=== PATIENT | male | born 1955 | race Two or more races ===

== ENCOUNTER 2024-12-13 15:34 | Inpatient (IN) | payer MEDICARE, MEDICAID, SELFPAY ==
[2024-12-13] VITALS (11 sets, daily range): BP systolic 115–166; BP diastolic 79–94; PULSE 48–72; RESP 13–96; TEMP 36.5–36.9; O2SAT 95–98; BMI 30.4
--- NOTE | 2024-12-13 15:39 | EKG_ITS ---
[facility] Test Date: 2024-12-13 Pat Name: NORMAN DONG Department: Room: - Gender: Male [employer]: : 1955 Requested By: Naomy Holt Order Number: [id number] Reading MD: Naomy Holt Measurements Intervals [place] Rate: 47 P: 9 [place]: 105 QRS: 54 QRSD: 82 T: 205 QT: 489 QTc: 436 Interpretive Statements SINUS BRADYCARDIA WITH SHORT [place] INTERVAL ST DEVIATION AND MODERATE T-WAVE ABNORMALITY, CONSIDER ANTEROLATERAL ISCHEMIA [-0.1+ mV T-WAVE IN V3-V6] ST DEVIATION AND MODERATE T-WAVE ABNORMALITY, CONSIDER INFERIOR ISCHEMIA [-0.1+ mV T-WAVE IN II/aVF] Compared to ECG 01/02/2024 04:17:27 Short [place] interval now present T-wave abnormality now present Possible ischemia now present Sinus rhythm no longer present /store/S0/[id number]/ecg/[id number].pdf
--- NOTE | 2024-12-13 15:53 | EDNOTE_ITS ---
<Statement entered by Naomy Lafleur MD - 12/13/24 17:55> As co-signing physician, I was present and available for consult prn. I concur with the plan and care as documented by the midlevel provider. ED General RME/HPI General Chief complaint: Weakness Stated complaint: HYPOTENSION Time Seen by Provider: 12/13/24 15:41 Arrival date/time: 12/13/24 15:34 CC: Generalized weakness abdominal pain numbness in his legs and back pain. Patient states ongoing for several days. He is able to speak with his doctor on the phone regarding his condition was not able to get into them and be seen personally at which time the patient can dial 911. The patient denies any chest pain or shortness of breath. Reviewed the medical records patient saw this patient has a significant mass past medical history including hypotension hyperlipidemia ST CKD stage III right-sided nephrectomy GERD chronic neck and back pain secondary to spinal stenosis status postsurgical repair, BPH, chronic constipation, diet depression anxiety, normocytic anemia. Related Data Home Medications ?Medication ?Instructions ?Recorded ?Confirmed hydrocodone 7.5 mg-acetaminophen 1 tab PO Q8H PRN Pain , Moderate 02/02/23 01/03/24 325 mg tablet topiramate 50 mg tablet 50 mg PO BID 02/02/23 gabapentin 400 mg capsule 400 mg PO TID 01/03/2401/02 Previous Rx's ?Medication ?Instructions ?Recorded apixaban 5 mg (74 tabs) tablets in 5 mg PO BID #74 tab s 01/05/24 a dose pack (Eliquis DVT-PE Treat 30D Start) Allergies Allergy/AdvReac Type Severity Reaction Status Date / Time zolpidem AdvReac Mild MAKES ME Verified 05/28/22 11:03 JOHN Review of Systems Review of Systems Narrative Review of Systems: GEN: No fever, no chills, no weight loss EYES: No discharge, no visual changes, no pain HEENT: No ear pain, no congestion, no sore throat PULM: No shortness of breath, no cough, no congestion CV: No chest pain, no dyspnea on exertion, no palpitations GI: No nausea, no vomiting, no diarrhea, no pain, no constipation : No frequency, no urgency, no dysuria MUSC/SKEL: No joint pain, no back pain SKIN: No rash PSYCH: No hallucinations, no depression HEME/LYMPH: No easy bleeding or bruising tendencies NEURO: +weakness, no headache Past Medical History Past Medical History NEUROLOGIC: Positive Neurological Disorders and Seizures (family states it happened after he had a neck stenosis surgery in 2013); Negative Peripheral Neuropathy CARDIAC: Positive Cardiac Disorders and Hypotension; Negative Hypercholesterolemia, Congestive Heart Failure, Edema, Cellulitis or Varicose Veins RESPIRATORY: Negative Chronic Obstructive Pulmonary Disease (COPD), Asthma, Tuberculosis or Sleep Apnea GASTROINTESTINAL: Positive Gall Bladder Disease and Obesity; Negative Gastrointestinal Disorders, Hepatitis, Colorectal Cancer or Gastroesophageal Reflux Disease GENITOURINARY: Positive Genitourinary Disorders, Renal Disease and Benign Prostatic Hyperplasia; Negative Kidney Stones, Dialysis or Prostate Cancer REPRODUCTIVE: Negative Testicular Cancer MUSCULOSKELETAL: Positive Musculoskeletal Disorders and Fractures; Negative Bone Cancer, Arthritis or Carpal Tunnel Syndrome ENT: Negative Cataracts or Blind ENDOCRINE: Negative Endocrine Disorders, Diabetes Mellitus Type 1 or Diabetes Mellitus Type 2 HEMATOLOGIC: Negative Blood Disorders or Sickle Cell Disease PSYCHO/SOCIAL: Positive Psychiatric Problems, Recreational Drug Use, Depression and Anxiety OTHER HISTORY: Positive Shingles, Falls, Human Immunodeficiency Virus (HIV), Chicken Pox and Mumps; Negative Hospitalization, Autoimmune Disease, Down Syndrome, Developmental Delay, Blood Transfusions, Blood Transfusion Reaction, Anesthesia Reactions, Organ Transplant, Chemotherapy, Radiation Therapy, Hyperbaric Therapy, MRSA, VRSA, Vancomycin-Resistant Enterococci, Measles, Cancer, Colorectal Cancer, Lung Cancer, Prostate Cancer or Testicular Cancer Family History FAMILY HISTORY: Positive Family Cardiac Disorders, Family Cancer and Family Surgery; Negative Family Psychiatric Problems, Family Respiratory Disorders, Family Gastrointestinal Problems or Family Anesthesia Reaction Surgical History SURGICAL: Positive Oral Surgery and Nephrectomy; Negative Cardiac Surgery, Pacemaker, Endocrine Surgery, Ear Surgery, Tympanostomy Tube, Eye Surgery, Nose Surgery, Tonsillectomy, Adenoidectomy, Cochlear Implant, Corneal Transplant, Throat Surgery, Abdominal Surgery, Tracheostomy, Gastric Bypass Surgery, Gastrostomy, Bowel Surgery, Transurethral Resection, Joint Replacement, Amputation, Open Reduction Internal Fixation, Arthroscopy, Neurologic Surgery, Brain Shunt, Vasectomy or Organ Transplant Social History SMOKING STATUS: Never smoker SECOND HAND EXPOSURE: No SUBSTANCE USE: marijuana (Once a day) 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 ED Exam Narrative Physical exam: [General: Obese not in any acute distress Head normocephalic HEENT: Within acceptable limits Neck is supple nontender Chest equal chest rise nontender to palpation Respiratory: Clear to auscultation no wheezes crackles or rubs CV: Rate rhythm is regular no murmurs rubs or clicks Abdomen is distended secondary to body habitus soft nontender no masses positive bowel sounds all 4 quadrants Back: No CVA tenderness no spinous process tenderness from cervical spine thoracic and lumbar spine Skin: Intact no petechiae rash induration ulceration or crepitus Extremities: Moving all extremity against resistance cap refill less than 2 seconds neurosensory intact, no lower extremity edema Neuro: Awake alert oriented x3 Glascow coma 15 no focal deficits] Course Course Course Narrative: Review of the records show that the patient has worsening CKD with a BUN of 43 now and a creatinine of 2.7. Patient is also noted to be bradycardic. At this time given the patient's significant past medical history I believe he needs to be admitted for further medical management to try and recover his single kidney. Patient's case discussed with Dr. Ewing who agrees to accept the patient for admission Quality Measures none Orders Category Date Time Status EKG (ED ONLY) *Do not use* NOW Care 12/13/24 15:39 Completed EKG (ED Only) Stat Exams 12/13/24 15:39 Draft B-Type Natriuretic Peptide Stat Lab 12/13/24 16:51 Received CBC Stat Lab 12/13/24 16:51 Received CMP [Comprehensive Metabolic Panel] Stat Lab 12/13/24 15:35 Completed Drug Screen,Urine Stat Lab 12/13/24 15:51 Ordered LDH (Lactate Dehydrogenase) Stat Lab 12/13/24 15:35 Completed Magnesium Stat Lab 12/13/24 15:35 Completed Partial Thromboplastin Time Stat Lab 12/13/24 15:35 Completed Prothrombin Time with INR Stat Lab 12/13/24 15:35 Completed Troponin I Stat Lab 12/13/24 15:35 Completed Urinalysis Stat Lab 12/13/24 15:51 Ordered Vital Signs Vital signs: Vital Signs Temperature 97.7 F 12/13/24 15:36 Pulse Rate 52 L 12/13/24 15:36 Respiratory Rate 14 12/13/24 15:36 Blood Pressure 130/79 12/13/24 15:36 Pulse Oximetry (%) 96 12/13/24 15:36 Oxygen Delivery Method Room Air 12/13/24 15:36 [facility] Patient data External records reviewed:: [facility] previous records and EMS form Clinical information provided by:: patient and EMS Social determinants that could affect healthcare access:: none Patient has the following chronic illnesses:: Hypotension hyperlipidemia CKD stage III right sided nephrectomy GERD chronic neck back pain spinal stenosis status post neurosurgical repair, BPH, chronic constipation, depression anxiety, normocytic anemia. How is presenting disease/condition affected by chronic disease/condition?: e xacerbated by Evaluation data The following diagnostics were reviewed and interpreted by me:: lab results, radiology exam(s) and EKG tracing(s) Lab and/or radiology exams considered but not ordered:: EKG performed at 1543 shows a ventricular rate of 4 6 MN interval 100 QRS of 80 QTc of 472 sinus bradycardia with T wave abnormalities. Unchanged to old EKG. Coags: Shows a PT of 12.4 INR 1.1 PTT of 21.9 CMP shows chloride of 108 BUN of 43 creatinine of 2.7 no other electrolyte imbalances no transaminitis or T. bili elevation Troponin at 0.075 when compared to the last 2 troponin since the patient had a full cardiac arrest all troponins have been elevated. Interpretation Summary: Worsening CKD, along with bradycardias resulting in requirement for admission Medications Medications considered but not ordered:: None Medication administrations:: None Consultations Consultation(s) initiated? (list below): No Diagnosis Differential Diagnosis ED Complaint MDM: Worsening CKD, ACS MT Most likely diagnosis given after review of the tests above:: Worsening CKD, bradycardia Admission Indicated Admission indicated?: indicated Explain why admission is indicated or not indicated:: Further medical management Admission Request Was there a request for admission?: No Disposition Plan Disposition Plan: Admit Medical Decision Making Differential Diagnosis Differential Diagnosis: Worsening CKD, ACS MT Lab Data 12/13/24 16:51 12/13/24 15:35 Labs: Lab Results 12/13/24 Range/Units 15:35 WBC Cancelled RBC Cancelled Hgb Cancelled Hct Cancelled MCV Cancelled MCH Cancelled MCHC Cancelled RDW Std Deviation Cancelled Plt Count Cancelled Neut % (Auto) Cancelled Lymph % (Auto) Cancelled [place] % (Auto) Cancelled Eos % (Auto) Cancelled Baso % (Auto) Cancelled Neut # (Auto) Cancelled Lymph # (Auto) Cancelled [place] # (Auto) Cancelled Eos # (Auto) Cancelled Baso # (Auto) Cancelled Immature Gran # (Auto) Cancelled Absolute Nucleated RBC Cancelled Immature Gran % Cancelled Nucleated RBC % Cancelled PT 12.4 H (9.0-12.2) Seconds INR 1.1 (0.9-1.3) APTT 21.9 L (22.0-36.0) Seconds Sodium 141 (136-145) mMol/L Potassium 4.2 (3.4-5.1) mMol/L Chloride 108 H (98-107) mMol/L Carbon Dioxide 24.6 (20.0-31.0) mMol/L Anion Gap 8 (7-16) BUN 43 H (9-23) mg/dL Creatinine 2.7 H (0.6-1.3) mg/dL Estim Creat Clear Calc 28.2 L (>60) mL/min eGFR 25 L (60 - ) See Note BUN/Creatinine Ratio 16 (12-20) Ratio Glucose 105 (74-106) mg/dL Calculated Osmolality 292 (275-295) Calcium 9.4 (8.3-10.6) mg/dL Corrected Calcium 9.6 (8.5-10.1) mg/dL Magnesium 1.8 (1.6-2.6) mg/dL Total Bilirubin 0.7 (0.3-1.2) mg/dL AST 21 (0-34) U/L ALT 13 (10-49) U/L Alkaline Phosphatase 83 (46-116) U/L Lactate Dehydrogenase 173 (120-246) U/L Troponin I 0.075 H* (0.0-0.045) ng/mL Total Protein 6.3 (5.7-8.2) gm/dL Albumin 3.8 (3.4-4.8) gm/dL Globulin 2.5 (2.3-3.5) gm/dL Albumin/Globulin Ratio 1.5 (1.2-2.2) Misc Test Result Cancelled Discharge Plan Plan Patient Disposition: Other Care w/in Hosp ([facility]) Patient condition on transfer: Stable Prescriptions/Referrals Prescriptions/Med Rec: No Action gabapentin 400 mg Capsule 400 mg PO TID Eliquis DVT-PE Treat 30D Start 5 mg (74 tabs) tablets,dose pack 5 mg PO BID Qty: 74 0RF Rx Instructions: Take 10mg twice daily for 5 more days, and then 4mg twice daily after that. hydrocodone-acetaminophen 7.5-325 mg Tablet 1 tab PO Q8H PRN (Reason: Pain, Moderate) topiramate 50 mg Tablet 50 mg PO BID Referrals: Yury Russell MD [Primary Care Provider] - In 1 week Problem List Clinical Impression: CKD (chronic kidney disease), Bradycardia Patient/Caregiver Discharge Instructions Print Language: [place] Citizen Stand Alone Forms: Lisbeth Award Info., Patient Portal Info Letter PA/NUTRITION SERVICES WORKER Supervising Physician PA/NUTRITION SERVICES WORKER Supervising Physician: Omar Yu ENP
[2024-12-13 16:40] LABS: Alanine Aminotransferase 13 U/L (10-49); Albumin, Serum 3.8 gm/dL (3.4-4.8); Albumin/Globulin Ratio 1.5 (1.2-2.2); Alkaline Phosphatase 83 U/L (46-116); Anion Gap 8 (7-16); Aspartate Amino Transferase 21 U/L (0-34); BUN/Creatinine Ratio 16 Ratio (12-20); Bilirubin,Total 0.7 mg/dL (0.3-1.2); Blood Urea Nitrogen 43 mg/dL (9-23); Calcium 9.4 mg/dL (8.3-10.6); Calcium (Corrected) 9.6 mg/dL (8.5-10.1); Carbon Dioxide 24.6 mMol/L (20.0-31.0); Chloride 108 mMol/L (98-107); Creatinine (Component) 2.7 mg/dL (0.6-1.3); Estimated Creatinine Clearance 28.2 mL/min (>60); Globulin 2.5 gm/dL (2.3-3.5); Glucose 105 mg/dL (74-106); LDH (Lactate Dehydrogenase) 173 U/L (120-246); Magnesium 1.8 mg/dL (1.6-2.6); Osmolality,Calculated 292 (275-295); Potassium 4.2 mMol/L (3.4-5.1); Sodium 141 mMol/L (136-145); Total Protein 6.3 gm/dL (5.7-8.2); eGFR 25 See Note
[2024-12-13 16:42] LABS: Troponin I 0.075 ng/mL (0.0-0.045)
[2024-12-13 16:43] LABS: INR 1.1 (0.9-1.3); Partial Thromboplastin Time 21.9 Seconds (22.0-36.0); Prothrombin Time 12.4 Seconds (9.0-12.2)
[2024-12-13 17:10] LABS: Basophils % (Auto) 0 % (0-2.5); Eosinophils # (Auto) 0.5 Thou/mm3 (0.0-0.5); Eosinophils % (Auto) 7 % (0-10); Hematocrit 37.8 % (41.0-53.0); Hemoglobin 12.4 g/dL (13.5-16.0); Immature Granulocytes % (Auto) 0 % (0-0); Immature Granulocytes Auto 0.02 Thou/mm3 (0.00-0.00); Lymphocytes # (Auto) 1.6 Thou/mm3 (1.0-4.8); Lymphocytes % (Auto) 22 % (10-50); Mean Corpuscular HGB Conc 32.8 g/dl (31.0-37.0); Mean Corpuscular Hemoglobin 28.9 pg (25.0-35.0); Mean Corpuscular Volume 88 fL (80-100); Monocytes # (Auto) 0.6 Thou/mm3 (0.0-0.8); Monocytes % (Auto) 9 % (0-12); Neutrophils # (Auto) 4.3 Thou/mm3 (1.8-7.7); Neutrophils % (Auto) 61 % (37-80); Nucleated Red Blood Cell % 0 /100 WBC (0); Platelet Count 144 Thou/mm3 (140-440); RDW Standard Deviation 42.1 fL (35.1-43.9); Red Blood Count 4.29 Miln/mm3 (4.50-5.90); White Blood Count 7.1 Thou/mm3 (3.8-10.6)
[2024-12-13 17:22] LABS: B-Type Natriuretic Peptide 331 pg/mL (0-100)
[2024-12-13] MEDS: SODIUM CHLORIDE 0.9% 1000 ML 1,000 ML 999 ML IV (17:24)
--- NOTE | 2024-12-13 17:41 | PC.NURSE ---
providers requested bladder scan.
--- NOTE | 2024-12-13 17:53 | PC.NURSE ---
per hospitalist request to bladder scan patient. measured volume of 266ml. notifed Omar OYSTER CULLER. order for rangel cath obtained
--- NOTE | 2024-12-13 18:00 | XR_ITS ---
Examination: Retroperitoneal ultrasound, complete Technique: Multiple high resolution grayscale images of the retroperitoneum obtained, including kidneys and bladder. Exam date and time:December 13, 20240 hours INDICATIONS: Acute renal insufficiency on laboratory examination today, status post right nephrectomy 4 years ago FINDINGS: Absent right kidney Left kidney 9.9 cm renal cortex 1.3 cm Moderate renal parenchymal scar formation, no hydronephrosis Urinary bladder contracted around a Talley catheter IMPRESSION: Moderate left renal parenchymal scar formation
--- NOTE | 2024-12-13 18:10 | PD.RESHP ---
Documentation for date of: 12/13/24 HPI History of Present Illness History of present illness: Patient is a 69-year-old male with past medical history of hypotension (previously on midodrine), cardiopulmonary arrest 12/2023, hyperlipidemia, CKD stage III, right-sided nephrectomy, GERD, chronic neck/back pain secondary to spinal stenosis s/p surgical repair 2011, BPH, chronic constipation, depression/anxiety, and normocytic anemia who presented to the ED on 12/13/2024 with a chief complaint of generalized weakness starting about 3 days ago. Patient reports associated groin and lower abdominal ache. He is a somewhat poor historian. He states that at baseline he is wheelchair bound since spine surgery but self-transfers over the last few days have felt more difficult due to full body weakness. Patient states that he has been urinating as usual. He uses briefs and denies use of any straight catheter. He denies any dysuria, hematuria, fevers, chills, sweats, nausea, vomiting, or diarrhea. Patient states his intake has been poor the last few days. He endorses constipation and last bowel movement was 3 days ago. Patient otherwise states that he follows with his PCP, Dr. Russell and was last seen a couple weeks ago. Patient denies having a alteration tailor apprentice. Patient states he had a right nephrectomy because it was no longer good, records show it was done due to pyelonephrosis and nonfunction. Patient states he has not seen a Urologist in the past, however records indicate he has seen Dr. Ferreira. ED Course: -Initial vitals were BP 130/79, HR 52, RR 14, Temp 97.7, O2 96% on room air -Labs significant for BUN 43, creatinine 2.7 (baseline 1.7-1.8), GFR 25 (baseline 40s), troponin 0.075, BNP 331 -EKG showed sinus bradycardia with rate of [address] changes from prior EKGs -In the ED, patient was given 1L NS IV fluid bolus. -Patient was admitted for REN on CKD. Review of Systems Review of systems otherwise negative except what is mentioned above. Past Medical History Past Medical History NEUROLOGIC: Positive Peripheral Neuropathy CARDIAC: Positive Hypercholesterolemia and Hypotension GASTROINTESTINAL: Positive Gall Bladder Disease, Gastroesophageal Reflux Disease and Obesity GENITOURINARY: Positive Genitourinary Disorders, Chronic Kidney Disease (CKD III), Renal Disease, Kidney Stones and Benign Prostatic Hyperplasia MUSCULOSKELETAL: Positive Musculoskeletal Disorders, Arthritis and Fractures PSYCHO/SOCIAL: Positive Recreational Drug Use, Depression and Anxiety OTHER HISTORY: Positive Shingles, Falls, Human Immunodeficiency Virus (HIV), Chicken Pox and Mumps Family History FAMILY HISTORY: Positive Family Cardiac Disorders (Heart failure in mother), Family Endocrine Disorders (Diabetes in Father), Family Reproductive Disorders (Prostate cancer in father) and Family Cancer Surgical History SURGICAL: Positive Oral Surgery (Teeth Removed), Nephrectomy (Right Kidney) and of Back Surgery (Neck surgery) Social History SUBSTANCE USE: marijuana (Once a day) ALCOHOL: Current (couple of beers daily) HOUSING: House LIVES WITH: Family ( and son) 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 Conversational often rambling, and non-toxic appearing. Patient smells very strongly of urine. HEENT: Normocephalic, atraumatic, mucous membranes moist. Heart: Regular rate and rhythm, no murmurs. Lungs: Clear to auscultation with no wheezing or crackles. Abdomen: Obese and distended but soft, nontender, positive bowel sounds. No edema. No guarding or rebound tenderness. Neurologic: Alert and oriented x3, no gross neurological deficit, and patient able to move all 4 extremities. Extremities: No edema. Skin: No rash or ecchymoses. Results: Labs 12/14/24 05:50 12/14/24 05:50 Labs: Short CBC 12/13/24 12/13/24 Range/Units 15:35 16:51 WBC Cancelled 7.1 Hgb Cancelled 12.4 L Hct Cancelled 37.8 L Plt Count Cancelled 144 BMP 12/13/24 15:35 Sodium 141 Potassium 4.2 Chloride 108 H Carbon Dioxide 24.6 BUN 43 H Creatinine 2.7 H Glucose 105 Calcium 9.4 Cardiac Enzymes 12/13/24 Range/Units 15:35 Troponin I 0.075 H* (0.0-0.045) ng/mL Liver Function 12/13/24 Range/Units 15:35 Total Bilirubin 0.7 (0.3-1.2) mg/dL AST 21 (0-34) U/L ALT 13 (10-49) U/L Alkaline Phosphatase 83 (46-116) U/L Albumin 3.8 (3.4-4.8) gm/dL Quality Measures Quality Measures none Advance care planning discussed with:: patient Medications Home Medications and Allergies Home Medications ?Medication ?Instructions ?Recorded ?Confirmed ?Type hydrocodone 7.5 mg-acetaminophen 1 tab PO Q8H PRN Pain, Moderate 02/02/23 12/14/24 History 325 mg tablet topiramate 50 mg tablet 50 mg PO BID 02/02/23 12/14/24 History gabapentin 400 mg capsule 400 mg PO TID 01/03/24 12/14/24 History amitriptyline 10 mg tablet 10 mg PO .qdayhs 12/14/24 12/14/24 History atorvastatin 40 mg tablet 40 mg PO QDAY 12/14/24 12/14/24 History buprenorphine 4 mg-naloxone 1 mg 1 film buccal BID 12/14/24 12/14/24 History sublingual film folic acid 1 mg tablet 1 mg PO QDAY 12/14/24 12/14/24 History lidocaine 5 % topical patch patch topical Q24H 12/14/24 History midodrine 10 mg tablet 10 mg PO TID 12/14/24 12/14/24 History thiamine HCl (vitamin B1) 100 mg 100 mg PO QDAY 12/14/24 12/14/24 History tablet Allergies Allergy/AdvReac Type Severity Reaction Status Date / Time zolpidem AdvReac Mild MAKES ME Verified 05/28/22 11:03 CRAZY Visit Medications Acetaminophen (Acetaminophen 325 Mg Tablet) 650 mg PO Q6H PRN PRN Reason: Fever >100.4 or Pain 1-3 Stop: 01/12/25 17:51 Amitriptyline HCl (Amitriptyline Hcl 25 Mg Tablet) 10 mg PO HS VIJAY Stop: 01/12/25 20:59 Atorvastatin Calcium (Atorvastatin Calcium 20 Mg Tablet) 40 mg PO HS VIJAY Stop: 01/12/25 20:59 Heparin Sodium (Porcine) (Heparin Sod Inj 5000 Unit/Ml Vial) 5,000 unit SC Q12HR VIJAY Stop: 12/27/24 20:59 Sodium Chloride (Ns) 1,000 mls @ 75 mls/hr IV .[id number] VIJAY Stop: 12/14/24 20:39 Magnesium Hydroxide (Milk Of Magnesia Susp 30 Ml Udc) 30 ml PO QDAY PRN; Protocol PRN Reason: CONSTIPATION Stop: 01/12/25 17:51 Ondansetron HCl (Ondansetron Inj 2 Mg/Ml Inj 2 Ml) 4 mg IV Q6H PRN; Protocol PRN Reason: NAUSEA OR VOMITING Stop: 01/12/25 17:51 Sennosides (Senna Tablet) 1 tab PO QDAY VIJAY; Protocol Stop: 01/12/25 17:59 Tramadol HCl (Tramadol Hcl 50 Mg Tablet) 50 mg PO Q6HR PRN PRN Reason: PAIN SCALE 4-10(Mod-Sev Stop: 12/18/24 18:03 Discontinued Medications Sodium Chloride (Ns) 1,000 mls @ 999 mls/hr IV .Q1H1M ONE Stop: 12/13/24 18:06 Last Admin: 12/13/24 17:24 Dose: 999 mls/hr Assessment & Plan Plan Patient is a 69-year-old male with past medical history of hypotension (previously on midodrine), cardiopulmonary arrest 12/2023, hyperlipidemia, CKD stage III, right-sided nephrectomy, GERD, chronic neck/back pain secondary to spinal stenosis s/p surgical repair 2011, BPH, chronic constipation, depression/anxiety, and normocytic anemia who presented to the ED on 12/13/2024 for 3 days of generalized weakness. He was found to have REN on CKD and admitted for further management. #REN on CKD stage 3 #Prerenal due to dehydration versus postrenal obstructive uropathy #Suspected UTI #History of right nephrectomy 2019 #History of BPH #History of possible neurogenic bladder secondary to spinal stenosis s/p surgery 2011 Patient presented with generalized weakness, complaining of abdominal/groin ache. On examination patient does not have any focal tenderness but smells strongly of urine. Creatinine is elevated at 2.7 above baseline 1.7-1.8 from 2023. May be either prerenal, secondary to poor intake, or postrenal secondary to obstructive uropathy, patient had listed history of BPH but denying, he appears to be a poor historian however. Also likely has neurogenic bladder secondary to spinal disease. He has history of R nephrectomy in 2019 for pyelonephrosis and nonfunction, used to follow with Dr. Ferreira in [id number]. Currently denies having a alteration tailor apprentice. Will administer IV fluids, place Talley, measure I&Os, consult nephrology. Patient received 1L in ED on admission. -Talley placed -Strict I&Os -IV hydration, NS at 75 ml/hr to start for 2L -Avoid nephrotoxins -Monitor renal panel -Renally dosed medications -UA ordered -Utox pending -Renal US ordered -Urine electrolytes ordered -On-call Nephrology consulted, appreciate recommendations -Suspect UTI, will start ceftriaxone if UA positive #Chronic neck/back pain #History of lumbar spinal stenosis s/p fusion 2011 Had surgery at [place] in 2011, patient states has been wheelchair bound since. He has a pain specialist of which he does not remember the name. He is on buprenorphine-naloxone. Old lumbar MRI on record from 2020 shows lumbar fusion L5-S1 with anatomic alignment, L4-L5 moderate overall spinal stenosis, L3-L4 moderate to severe overall spinal stenosis, including 8 mm central lumbar disc bulge. Old cervical spine CT on record from 2021 shows cervical fusion C5-C7. -Continue home buprenorphine-naloxone 4-1 mg BID, patient's to bring from home -Tramadol 50 mg q6h as needed in the mean time for moderate to severe pain #Chronic constipation Patient on admission states he has not had bowel movement in 3 days. -Senna 1 tab qday -Milk of magnesia 30 ml qday as needed #History of hyperlipidemia -Continue home atorvastatin 40 mg HS #History of depression/anxiety -Continue home amitriptyline 10 mg qday DVT prophylaxis: Heparin 5,000 U subQ GI prophylaxis: Not indicated Diet: Renal Talley: Placed [12/13- ] Lines: Peripheral IV Antibiotics: Ceftriaxone [12/14- ] CODE STATUS: FULL Reason for hospitalization: REN on CKD Patient plan of care was discussed with the attending physician, Dr. Stone. Edith Ewing, PGY-2 Attending Provider Attestation/Addendum I have examined the patient, reviewed labs and imaging findings, discussed the case with the resident(s), and reviewed entered orders. I agree with the plan of care as outlined in this note, with these additional summaries/recommendations: 69-year-old male with history of nephrectomy and chronic back pain secondary to spinal stenosis now wheelchair-bound presented to the ED with chief complaint of worsening weakness, increased frequency of urination. After discussion with , suspect that the issue may be related to UTI. UA returned positive for white blood cells, will initiate on Rocephin and fluid resuscitation for likely prerenal REN. Monitor renal function closely. Alejandro Stone MD
[2024-12-13] MEDS: SODIUM CHLORIDE 0.9% 1000 ML 1,000 ML 75 ML IV (18:25)
[2024-12-13] MEDS: SENNA TABLET 1 TAB PO (18:26)
[2024-12-13 18:47] LABS: Creatine Kinase 81 U/L (34-171)
[2024-12-13 18:54] LABS: Collection Type, Urine Clean Catch
--- NOTE | 2024-12-13 18:59 | PC.NURSE ---
rangel cath inserted, tolerated well. 210ml measured output
[2024-12-13 19:26] LABS: Chloride,Urine Random 67.5 mMol/L (55.0-125.0); Potassium,Urine Random 34 mMol/L (12-62); Sodium,Urine Random 73.4 mMol/L (20.0-110.0)
[2024-12-13] MEDS: traMADol HCL 50 MG TABLET PO (19:28)
[2024-12-13 19:29] LABS: Bacteria,Urine 4+; Bilirubin,Urine Negative (Negative); Blood,Urine Trace (Negative); Clarity,Urine Turbid (Clear/Hazy); Color,Urine Yellow (Lt Yel-Yel); Glucose, Urine Negative (Negative); Ketones,Urine Negative (Negative); Leukocyte Esterase,Urine Positive (Negative); Nitrite,Urine Positive (Negative); Protein,Urine 1+ (Neg - Trace); RBC,Urine 9 /hpf (0-3); Specific Gravity,Urine 1.016 (1.001-1.035); Squamous Epithelial Cell,Urine 1 /hpf (0-5); Urobilinogen,Urine Negative mg/dL (0.0-1.0); WBC,Urine 156 /hpf (0-5)
[2024-12-13] MEDS: HEPARIN SOD INJ 5000 UNIT/ML VIAL SC (20:45)
[2024-12-13] MEDS: ATORVASTATIN CALCIUM 20 MG TABLET 40 MG PO (20:45)
--- NOTE | 2024-12-13 21:06 | PC.NURSE ---
unable to give patients scheduled home meds spoke to via telephone states shes unable to bring them in tonight but will bring them tomorrow morning
[2024-12-13 22:07] LABS: Amphetamine/Methamp Scrn,U Negative (Negative); Barbiturate Screen,Urine Negative (Negative); Benzodiazepines Screen,Urine Negative (Negative); Benzoylecgonine Screen, Ur Negative (Negative); Fentanyl Screen,Urine Negative (Negative); Opiate Screen,Urine Negative (Negative); THC Screen,Urine Positive (Negative)
[2024-12-14] VITALS (10 sets, daily range): BP systolic 118–178; BP diastolic 78–108; PULSE 56–84; RESP 12–98; TEMP 36.1–36.5; O2SAT 97–98; BMI 29.2
[2024-12-14] MEDS: cefTRIAXone/D5w 1gm IV premix 1 G/50 ML BAG IV (00:30)
[2024-12-14 06:29] LABS: Basophils % (Auto) 0 % (0-2.5); Eosinophils # (Auto) 0.4 Thou/mm3 (0.0-0.5); Eosinophils % (Auto) 7 % (0-10); Hematocrit 36.6 % (41.0-53.0); Hemoglobin 12.2 g/dL (13.5-16.0); Immature Granulocytes % (Auto) 0 % (0-0); Immature Granulocytes Auto 0.01 Thou/mm3 (0.00-0.00); Lymphocytes # (Auto) 1.3 Thou/mm3 (1.0-4.8); Lymphocytes % (Auto) 21 % (10-50); Mean Corpuscular HGB Conc 33.3 g/dl (31.0-37.0); Mean Corpuscular Hemoglobin 29.5 pg (25.0-35.0); Mean Corpuscular Volume 88 fL (80-100); Monocytes # (Auto) 0.6 Thou/mm3 (0.0-0.8); Monocytes % (Auto) 10 % (0-12); Neutrophils # (Auto) 3.6 Thou/mm3 (1.8-7.7); Neutrophils % (Auto) 61 % (37-80); Nucleated Red Blood Cell % 0 /100 WBC (0); Platelet Count 122 Thou/mm3 (140-440); RDW Standard Deviation 41.1 fL (35.1-43.9); Red Blood Count 4.14 Miln/mm3 (4.50-5.90); White Blood Count 5.8 Thou/mm3 (3.8-10.6)
[2024-12-14 06:43] LABS: Albumin, Serum 3.7 gm/dL (3.4-4.8); Anion Gap 7 (7-16); BUN/Creatinine Ratio 17 Ratio (12-20); Blood Urea Nitrogen 38 mg/dL (9-23); Calcium (Corrected) 9.2 mg/dL (8.5-10.1); Carbon Dioxide 24.7 mMol/L (20.0-31.0); Chloride 108 mMol/L (98-107); Creatinine (Component) 2.2 mg/dL (0.6-1.3); Glucose 89 mg/dL (74-106); Magnesium 1.8 mg/dL (1.6-2.6); Osmolality,Calculated 287 (275-295); Phosphorous 3.3 mg/dL (2.4-5.1); Potassium 4.3 mMol/L (3.4-5.1); Sodium 140 mMol/L (136-145); eGFR 32 See Note
[2024-12-14] MEDS: SODIUM CHLORIDE 0.9% 1000 ML 1,000 ML 75 ML IV (08:44)
[2024-12-14] MEDS: HEPARIN SOD INJ 5000 UNIT/ML VIAL SC ×2 (08:44→21:15)
[2024-12-14] MEDS: SENNA TABLET 1 TAB PO (08:45)
--- NOTE | 2024-12-14 10:26 | EKG_ITS ---
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: STACEY : 1955 Requested By: Maritza Rock Order Number: [id number] Reading MD: Maritza Rock Measurements Intervals [place] Rate: 60 P: 28 NJ: 136 QRS: 42 QRSD: 80 T: 206 QT: 447 QTc: 450 Interpretive Statements SINUS RHYTHM ST DEVIATION AND MODERATE T-WAVE ABNORMALITY, CONSIDER ANTEROLATERAL ISCHEMIA ST DEVIATION AND MODERATE T-WAVE ABNORMALITY, CONSIDER INFERIOR ISCHEMIA Compared to ECG 12/13/2024 15:43:29 Sinus bradycardia no longer present Short [place] interval no longer present T-wave abnormality still present Possible ischemia still present /store/S0/[id number]/ecg/[id number].pdf
--- NOTE | 2024-12-14 11:14 | ESPR_ITS ---
<Statement entered by Tosin Ford MD - 12/22/24 09:19> I reviewed above note and agree with findings and plans. I have also personally examined the patient with medicine team and went over assessment and plan with medical team including international relations teacher and resident physician. Documentation for date of: 12/14/24 Subjective Subjective Interval history: Patient seen and examined at bedside. Patient's labs and vitals reviewed. Patient was started on IV NS yesterday renal function is improved. Creatinine 2.2, BUN 38, GFR 33 today. Renal ultrasound showed moderate left parenchymal scar formation, Patient complains of intermittent substernal chest pain/pressure radiating to neck at times, reports pain to be currently 4/10. Patient's initial troponin on presentation was negative, peaked at 0.254 and then down trended. EKG showed no acute ST?T changes as compared to previous EKGs. EKG does show T wave inversions in lead V3 to V6 and some inversion in inferior leads. Patient will need outpatient cardiology workup considering NSTEMI type II. Otherwise we will continue to monitor renal function Exam Vital Signs Temp Pulse Resp BP Pulse Ox O2 Del Method 97.5 F 63 16 167/95 H 98 Room Air 12/14/24 08:00 12/14/24 08:00 12/14/24 08:00 12/14/24 08:00 12/14/24 08:00 12/14/24 08:00 Narrative Exam Physical Exam General: Awake and in no acute distress. Conversational often rambling, and non- toxic appearing. HEENT: Normocephalic, atraumatic, mucous membranes moist. Heart: Regular rate and rhythm, no murmurs. Lungs: Clear to auscultation with no wheezing or crackles. Abdomen: Obese and distended but soft, nontender, positive bowel sounds. No edema. No guarding or rebound tenderness. Neurologic: Alert and oriented x3, no gross neurological deficit, and patient able to move all 4 extremities. Extremities: No edema. Skin: No rash or ecchymoses. Objective Labs 12/14/24 05:50 12/14/24 05:50 Labs: Laboratory Results - last 24 hr 12/13/24 12/13/24 12/13/24 15:35 16:51 18:50 WBC Cancelled 7.1 RBC Cancelled 4.29 L Hgb Cancelled 12.4 L Hct Cancelled 37.8 L MCV Cancelled 88 MCH Cancelled 28.9 MCHC Cancelled 32.8 RDW Std Deviation Cancelled 42.1 Plt Count Cancelled 144 Neut % (Auto) Cancelled 61 Lymph % (Auto) Cancelled 22 [place] % (Auto) Cancelled 9 Eos % (Auto) Cancelled 7 Baso % (Auto) Cancelled 0 Neut # (Auto) Cancelled 4.3 Lymph # (Auto) Cancelled 1.6 [place] # (Auto) Cancelled 0.6 Eos # (Auto) Cancelled 0.5 Baso # (Auto) Cancelled 0.0 Immature Gran # (Auto) Cancelled 0.02 H Absolute Nucleated RBC Cancelled 0.00 Immature Gran % Cancelled 0 Nucleated RBC % Cancelled 0 PT 12.4 H INR 1.1 APTT 21.9 L Sodium 141 Potassium 4.2 Chloride 108 H Carbon Dioxide 24.6 Anion Gap 8 BUN 43 H Creatinine 2.7 H Estim Creat Clear Calc 28.2 L eGFR 25 L BUN/Creatinine Ratio 16 Glucose 105 Calculated Osmolality 292 Calcium 9.4 Corrected Calcium 9.6 Phosphorus Magnesium 1.8 Total Bilirubin 0.7 AST 21 ALT 13 Alkaline Phosphatase 83 Lactate Dehydrogenase 173 Total Creatine Kinase 81 Troponin I 0.075 H* B-Natriuretic Peptide 331 H Total Protein 6.3 Albumin 3.8 Globulin 2.5 Albumin/Globulin Ratio 1.5 Ur Collection Type Clean Catch Urine Color Yellow Urine Clarity Turbid A Urine pH 6.0 Ur Specific [place] 1.016 Urine Protein 1+ A Urine Glucose (UA) Negative Urine Ketones Negative Urine Blood Trace Urine Nitrite Positive Urine Bilirubin Negative Urine Urobilinogen (Auto) Negative Ur Leukocyte Esterase Positive Urine RBC 9 H Urine WBC 156 H Ur Squamous Epith Cells 1 Urine Bacteria 4+ A Ur Random Sodium 73.4 Ur Random Potassium 34 Ur Random Chloride 67.5 Urine Opiates Screen Negative Urine Fentanyl Screen Negative Ur Barbiturates Screen Negative U Amphetamin/Meth Scrn Negative U Benzodiazepines Scrn Negative U Cocaine Metab Screen Negative U Marijuana (THC) Screen Positive A Misc Test Result Cancelled 12/14/24 05:50 WBC 5.8 RBC 4.14 L Hgb 12.2 L Hct 36.6 L MCV 88 MCH 29.5 MCHC 33.3 RDW Std Deviation 41.1 Plt Count 122 L Neut % (Auto) 61 Lymph % (Auto) 21 [place] % (Auto) 10 Eos % (Auto) 7 Baso % (Auto) 0 Neut # (Auto) 3.6 Lymph # (Auto) 1.3 [place] # (Auto) 0.6 Eos # (Auto) 0.4 Baso # (Auto) 0.0 Immature Gran # (Auto) 0.01 H Absolute Nucleated RBC 0.00 Immature Gran % 0 Nucleated RBC % 0 PT INR APTT Sodium 140 Potassium 4.3 Chloride 108 H Carbon Dioxide 24.7 Anion Gap 7 BUN 38 H Creatinine 2.2 H D Estim Creat Clear Calc 34.0 L eGFR 32 L BUN/Creatinine Ratio 17 Glucose 89 Calculated Osmolality 287 Calcium 9.0 Corrected Calcium 9.2 Phosphorus 3.3 Magnesium 1.8 Total Bilirubin AST ALT Alkaline Phosphatase Lactate Dehydrogenase Total Creatine Kinase Troponin I B-Natriuretic Peptide Total Protein Albumin 3.7 Globulin Albumin/Globulin Ratio Ur Collection Type Urine Color Urine Clarity Urine pH Ur Specific [place] Urine Protein Urine Glucose (UA) Urine Ketones Urine Blood Urine Nitrite Urine Bilirubin Urine Urobilinogen (Auto) Ur Leukocyte Esterase Urine RBC Urine WBC Ur Squamous Epith Cells Urine Bacteria Ur Random Sodium Ur Random Potassium Ur Random Chloride Urine Opiates Screen Urine Fentanyl Screen Ur Barbiturates Screen U Amphetamin/Meth Scrn U Benzodiazepines Scrn U Cocaine Metab Screen U Marijuana (THC) Screen Misc Test Result Quality Measures Quality Measures none Advance care planning discussed with:: patient Assessment & Plan Assessment Current Active Medications: Generic Name Dose Route Start Last Admin Trade Name Freq PRN Reason Stop Dose Admin Acetaminophen 650 mg 12/13/24 17:52 Acetaminophen 325 Mg Tablet PO 01/12/25 17:51 Q6H PRN Fever >100.4 or Pain 1-3 Atorvastatin Calcium 40 mg 12/13/24 21:00 12/13/24 20:45 Atorvastatin Calcium 20 Mg Tablet PO 01/12/25 20:59 40 mg HS VIJAY Administration Buprenorphine- 0 ea 12/14/24 09:15 12/14/24 09:21 Naloxone 4-1 Mg Film SL 01/13/25 09:14 1 film BID VIJAY Administration Heparin Sodium (Porcine) 5,000 unit 12/13/24 21:00 12/14/24 08:44 Heparin Sod Inj 5000 Unit/Ml Vial SC 12/27/24 20:59 5,000 unit Q12HR VIJAY Administration Sodium Chloride 1,000 mls @ 75 mls/hr 12/13/24 18:00 12/14/24 08:44 Ns IV 12/14/24 20:39 75 mls/hr .[id number] VIJAY Administration Ceftriaxone Sodium/Dextrose 1 gm in 50 mls @ 100 mls/hr 12/14/24 21:00 Rocephin/D5w 1gm Iv Premix IV 12/21/24 20:59 HS [facility] Lidocaine 1 patch 12/14/24 09:09 Lidocaine 5% 1 Patch TOP 01/13/25 09:08 UD PRN PAIN Protocol Magnesium Hydroxide 30 ml 12/13/24 17:52 Milk Of Magnesia Susp 30 Ml Udc PO 01/12/25 17:51 QDAY PRN CONSTIPATION Protocol Home Medication- 1 ea 12/13/24 21:00 12/13/24 21:06 Please Speak With PO 01/12/25 20:59 Not Given Patient Caregiver To [facility] Have Rx Brought To [facility] Ondansetron HCl 4 mg 12/13/24 17:52 Ondansetron Inj 2 Mg/Ml Inj 2 Ml IV 01/12/25 17:51 Q6H PRN NAUSEA OR VOMITING Protocol Sennosides 1 tab 12/13/24 18:00 12/14/24 08:45 Senna Tablet PO 01/12/25 17:59 1 tab QDAY VIJAY Administration Protocol Plan Assessment and plan Summary: Mr. Tang is a 69-year-old male with past medical history of hypotension (previously on midodrine), cardiopulmonary arrest 12/2023, hyperlipidemia, CKD stage III, right-sided nephrectomy, GERD, chronic neck/back pain secondary to spinal stenosis s/p surgical repair 2011, BPH, chronic constipation, depression/anxiety, and normocytic anemia who presented to the ED on 12/13/2024 for 3 days of generalized weakness. He was found to have REN on CKD and admitted for further management. #REN on CKD stage 3 #Prerenal due to dehydration versus postrenal obstructive uropathy #Urinary tract infection #History of right nephrectomy 2019 #History of BPH #History of possible neurogenic bladder secondary to spinal stenosis s/p surgery 2011 Patient presented with generalized weakness, complaining of abdominal/groin ache. On examination patient does not have any focal tenderness. Creatinine is elevated at 2.7 above baseline 1.7-1.8 from 2023. He has history of R nephrectomy in 2019 for pyelonephrosis and nonfunction, used to follow with Dr. Ferreira in [id number]. Currently denies having a psychologist clinical and/or urologist. Was started on IV fluids, place Talley, measure I&Os, consult nephrology. Patient received 1L in ED on admission. Urine analysis showed bacteria 4+ WBC 156, RBC 9, leukocyte esterase positive, nitrite positive protein 1+ Urine sodium 73, potassium 34, chloride 67.5 Renal ultrasound showed moderate left parenchymal scar formation, 12/14/2024: Creatinine 2.2, BUN 38, GFR 33, improving Plan: -Continue IV normal saline 75 cc/h -Continue IV ceftriaxone (12/13- -Continue Talley -Strict I&Os -Avoid nephrotoxic agents -Will follow renal panel in a.m. -Nephrology consulted, appreciate recommendations #NSTEMI type I VS type II #Cardiac chest pain #Elevated troponin Patient complains of intermittent substernal chest pain/pressure radiating to neck at times, reports pain to be currently 4/10. Patient's initial troponin 0.075. BNP 331 EKG showed no acute [address]?T changes as compared to previous EKGs. EKG does show T wave inversions in lead V3 to V6 and some inversion in inferior leads. Patient will need outpatient cardiology workup considering NSTEMI type II. Plan: -Repeat troponin -Monitor for chest pain, consider repeating EKG/troponin as needed -Will consider cardiology consult #Chronic neck/back pain #History of lumbar spinal stenosis s/p fusion 2012 Had surgery at [place] in 2011, patient states has been wheelchair bound since. He has a pain specialist of which he does not remember the name. He is on buprenorphine-naloxone. Old lumbar MRI on record from 2020 shows lumbar fusion L5-S1 with anatomic alignment, L4-L5 moderate overall spinal stenosis, L3-L4 moderate to severe overall spinal stenosis, including 8 mm central lumbar disc bulge. Old cervical spine CT on record from 2021 shows cervical fusion C5-C7. -Continue home buprenorphine-naloxone 4-1 mg BID -Lidocaine patch as needed #Chronic constipation Patient on admission states he has not had bowel movement in 3 days. -Senna 1 tab qday -Milk of magnesia 30 ml qday as needed #History of hyperlipidemia -Continue home atorvastatin 40 mg HS #History of depression/anxiety -Continue home amitriptyline 10 mg qday DVT prophylaxis: Heparin GI prophylaxis: Not indicated Diet: Renal Lines: Peripheral IV Code status: Full code Case discussed with Attending Dr. Ford. Maritza Rock PGY1 Disclaimer: This note was dictated by speech recognition. Minor errors in safety risk lead may be present due to voice recognition software.
[2024-12-14] MEDS: LIDOCAINE 5% 1 PATCH TOP (13:10)
--- NOTE | 2024-12-14 15:07 | PD.RESCONSUL ---
HPI Data of Consult Consult date: 12/14/24 Requesting Physician: Tosin Ford MD Admitting Provider: Alejandro Stone MD Attending Provider: Tosin Ford MD Primary Care Provider: Yury Russell MD Consult Narrative Reason for consult: REN History of present illness: Daughter is the informant Mr. Tang is a 69-year-old male with PMHx of hypotension, on MIDODRINE, cardiopulmonary arrest in 12/2023, HLD, CKD stage III, right sided nephrostomy, GERD, spinal stenosis s/p surgical correction in 11/2024, presenting with generalized weakness for 3 days, accompanied by groin and lower abdominal discomfort. He is wheelchair-bound due to prior spine surgery and reports increased difficulty with self-transfers due to full body weakness. He denies any issues with urination, dysuria, hematuria, fever, chills, nausea, vomiting, or diarrhea, and mentions his food intake has been poor recently. He is experiencing constipation, with the last bowel movement occurring 3 days ago. He follows up with his PCP, Dr. Russell, and was last seen two weeks ago. The patient had a right nephrectomy for pyelonephrosis and nonfunction, followed up with Dr. Armstrong-food handler. Although he has never seen a urologist, records indicate he has consulted Dr. Ferreira. The team has consulted for REN and CKD stage III. On admission vitals WNL. He had a creatinine of 2.7 with baseline around 1.7. eGFR 32 with baseline 25. Electrolytes are normal. UA was turbid and positive for UTI. Hemoglobin around 12, with baseline around 11. He has slight elevation of troponin of 0.075 and BNP of 331. Renal ultrasound showed moderate left renal parenchymal scar formation, dimensions measured 9.9 cm and renal cortex of 1.3 cm, contracted urinary bladder around Talley catheter, s/p right nephrectomy. He has received NS 1 L bolus and continued on maintenance at 75 cc an hour. He is +1.9 L and had a 24-hour urine output of 660 cc. Continued on CEFTRIAXONE for UTI. PMHx: As above. PSHx: s/p right nephrectomy. Meds: pending med rec. Allergies: ZOLPIDEM FHx: Diabetes and prostate cancer in father, heart failure in mother. SHx: Admits to drinking 2 beers daily and marijuana use, no tobacco use. cc:: cc: Tosin Ford MD Exam Vital Signs Temp Pulse Resp BP Pulse Ox O2 Del Method 97.6 F 62 16 140/87 H 97 Room Air 12/14/24 12:00 12/14/24 12:00 12/14/24 12:00 12/14/24 12:00 12/14/24 12:00 12/14/24 12:00 Narrative Exam General: Appearing adult male, NAD. HEENT: Normocephalic, atraumatic, mucous membranes moist. Heart: Regular rate and rhythm, no murmurs. Lungs: Clear to auscultation with no wheezing or crackles. Abdomen: Obese and distended but soft, nontender, positive bowel sounds. No edema. No guarding or rebound tenderness. Neurologic: AOx3, no gross neurological deficit, and patient able to move all 4 extremities. Extremities: No edema claudette. Skin: No rash or ecchymoses. Results Labs 12/15/24 04:20 12/15/24 04:20 Labs: Short CBC 12/13/24 12/13/24 12/14/24 Range/Units 15:35 16:51 05:50 WBC Cancelled 7.1 5.8 Hgb Cancelled 12.4 L 12.2 L Hct Cancelled 37.8 L 36.6 L Plt Count Cancelled 144 122 L BMP 12/13/24 12/14/24 15:35 05:50 Sodium 141 140 Potassium 4.2 4.3 Chloride 108 H 108 H Carbon Dioxide 24.6 24.7 BUN 43 H 38 H Creatinine 2.7 H 2.2 H D Glucose 105 89 Calcium 9.4 9.0 Cardiac Enzymes 12/13/24 Range/Units 15:35 Total Creatine Kinase 81 (34-171) U/L Troponin I 0.075 H* (0.0-0.045) ng/mL Liver Function 12/13/24 12/14/24 Range/Units 15:35 05:50 Total Bilirubin 0.7 (0.3-1.2) mg/dL AST 21 (0-34) U/L ALT 13 (10-49) U/L Alkaline Phosphatase 83 (46-116) U/L Albumin 3.8 3.7 (3.4-4.8) gm/dL Urine 12/13/24 Range/Units 18:50 Urine Color Yellow (Lt Yel-Yel) Urine Clarity Turbid A (Clear/Hazy) Urine pH 6.0 (5.0-7.0) Ur Specific [place] 1.016 (1.001-1.035) Urine Protein 1+ A (Neg - Trace) Urine Glucose (UA) Negative (Negative) Quality Measures Quality Measures none Advance care planning discussed with:: patient Medications Home Medications and Allergies Home Medications ?Medication ?Instructions ?Recorded ?Confirmed ?Type hydrocodone 7.5 mg-acetaminophen 1 tab PO Q8H PRN Pain, Moderate 02/02/23 12/14/24 History 325 mg tablet topiramate 50 mg tablet 50 mg PO BID 02/02/23 12/14/24 History gabapentin 400 mg capsule 400 mg PO TID 01/03/24 12/14/24 History amitriptyline 10 mg tablet 10 mg PO .qdayhs 12/14/24 12/14/24 History atorvastatin 40 mg tablet 40 mg PO QDAY 12/14/24 12/14/24 History buprenorphine 4 mg-naloxone 1 mg 1 film buccal BID 12/14/24 12/14/24 History sublingual film folic acid 1 mg tablet 1 mg PO QDAY 12/14/24 12/14/24 History lidocaine 5 % topical patch patch topical Q24H 12/14/24 History midodrine 10 mg tablet 10 mg PO TID 12/14/24 12/14/24 History thiamine HCl (vitamin B1) 100 mg 100 mg PO QDAY 12/14/24 12/14/24 History tablet Allergies Allergy/AdvReac Type Severity Reaction Status Date / Time zolpidem AdvReac Mild MAKES ME Verified 05/28/22 11:03 CRAZY Visit Medications Acetaminophen (Acetaminophen 325 Mg Tablet) 650 mg PO Q6H PRN PRN Reason: Fever >100.4 or Pain 1-3 Stop: 01/12/25 17:51 Atorvastatin Calcium (Atorvastatin Calcium 20 Mg Tablet) 40 mg PO HS VIJAY Stop: 01/12/25 20:59 Last Admin: 12/13/24 20:45 Dose: 40 mg Buprenorphine- (Naloxone 4-1 Mg Film) 0 ea SL BID VIJAY Stop: 01/13/25 09:14 Last Admin: 12/14/24 09:21 Dose: 1 film Heparin Sodium (Porcine) (Heparin Sod Inj 5000 Unit/Ml Vial) 5,000 unit SC Q12HR VIJAY Stop: 12/27/24 20:59 Last Admin: 12/14/24 08:44 Dose: 5,000 unit Sodium Chloride (Ns) 1,000 mls @ 75 mls/hr IV .[id number] VIJAY Stop: 12/14/24 20:39 Last Admin: 12/14/24 08:44 Dose: 75 mls/hr Ceftriaxone Sodium/Dextrose (Rocephin/D5w 1gm Iv Premix) 1 gm in 50 mls @ 100 mls/hr IV HS [facility] Stop: 12/21/24 20:59 Lidocaine (Lidocaine 5% 1 Patch) 1 patch TOP UD PRN; Protocol PRN Reason: PAIN Stop: 01/13/25 09:08 Last Admin: 12/14/24 13:10 Dose: 1 patch Magnesium Hydroxide (Milk Of Magnesia Susp 30 Ml Udc) 30 ml PO QDAY PRN; Protocol PRN Reason: CONSTIPATION Stop: 01/12/25 17:51 Home Medication- Please Speak With Patient Caregiver To Have Rx Brought To [facility] 1 ea PO HS [facility] Stop: 01/12/25 20:59 Last Admin: 12/13/24 21:06 Dose: Not Given Ondansetron HCl (Ondansetron Inj 2 Mg/Ml Inj 2 Ml) 4 mg IV Q6H PRN; Protocol PRN Reason: NAUSEA OR VOMITING Stop: 01/12/25 17:51 Sennosides (Senna Tablet) 1 tab PO QDAY [facility]; Protocol Stop: 01/12/25 17:59 Last Admin: 12/14/24 08:45 Dose: 1 tab Discontinued Medications Amitriptyline HCl (Amitriptyline Hcl 25 Mg Tablet) 10 mg PO HS [facility] Stop: 01/12/25 20:59 Sodium Chloride (Ns) 1,000 mls @ 999 mls/hr IV .Q1H1M ONE Stop: 12/13/24 18:06 Last Infusion: 12/13/24 18:15 Dose: Infused Ceftriaxone Sodium/Dextrose (Rocephin/D5w 1gm Iv Premix) 1 g in 50 mls @ 100 mls/hr IV X1 ONE Stop: 12/13/24 23:59 Last Admin: 12/14/24 00:30 Dose: 100 mls/hr Non-Formulary Medication (Buprenorphine) 4 mg SL BID [facility] Stop: 01/12/25 20:59 Home Medication- Please Speak With Patient Caregiver To Have Rx Brought To [facility] 4 mg PO BID [facility] Stop: 01/12/25 20:59 Last Admin: 12/13/24 21:05 Dose: Not Given Non-Formulary Medication (Buprenorphine-Naloxone) 1 film BUCCAL BID [facility] Stop: 01/13/25 09:14 Tramadol HCl (Tramadol Hcl 50 Mg Tablet) 50 mg PO Q6HR PRN PRN Reason: PAIN SCALE 4-10(Mod-Sev Stop: 12/18/24 18:03 Last Admin: 12/13/24 19:28 Dose: 50 mg Assessment & Plan Plan In summary: 69-year-old male with PMHx of hypertension, previously on MIDODRINE, cardiopulmonary arrest in 12/2023, HLD, CKD stage III, right sided nephrostomy, GERD, spinal stenosis s/p surgical correction in 11/2024, presenting with generalized weakness for 3 days, accompanied by groin and lower abdominal discomfort. The hospitalist team consulted for REN on CKD stage III. Overall no change in plan. Continue with fluids and monitoring renal function. Continue treating UTI. REN likely prerenal vs obstructive uropathy vs UTI CKD III S/p right nephrectomy 2021 Likely in settings of UTI and poor oral intake including fluids as patient admits. Creatinine of 2.7 with baseline around 1.7. eGFR 32 with baseline 25. Urine NA 73, K34, chloride 67.5. Renal ultrasound showed moderate left renal parenchymal scar formation, absent right kidney. No hydronephrosis. Has signs of decreased urine output. Received 1 L bolus NS in ED. Continued on maintenance fluids. Renal function improving with fluids. ? Continue NS maint at 75 cc/hr ? Continue CTX for UTI ? Continue Talley ? Renally dose meds, avoid overdiuresis and NEPHROTOXINS ? Daily CMP NSTEMI type II versus type I Cardiac chest pain Elevated troponin Chronic neck/back pain Hx lumbar stenosis s/p fusion 2011 Chronic constipation Hyperlipidemia Anxiety and depression Managed per primary team. Patient case was discussed with attending, Dr. Armstrong. Marietta Bailey DO PGYI Attending Provider Attestation/Addendum Patient seen and examined with resident physician Dr. Mcmanus. Note reviewed, agree with findings and recommendations. Well-known to me for many years from CKD clinic. Patient has hypotension for years and has been on midodrine. He is wheelchair-bound posterior spinal fusion. Presented with REN-most likely related to prerenal azotemia versus retention. Responded very well to fluids and Talley catheter. Renal ultrasound showed no hydronephrosis. He has right nephrectomy for nonfunctioning kidney. Will monitor closely. Thank you Tosin for allowing me to participate in the care of Mr. Tang
[2024-12-14] MEDS: ACETAMINOPHEN 325 MG TABLET 650 MG PO (16:24)
[2024-12-14 16:57] LABS: Troponin I 0.078 ng/mL (0.0-0.045)
[2024-12-14] MEDS: GABAPENTIN 100 MG CAPSULE 200 MG PO (18:09)
[2024-12-14] MEDS: ATORVASTATIN CALCIUM 20 MG TABLET 40 MG PO (21:01)
[2024-12-14] MEDS: cefTRIAXone/D5w 1gm IV premix 1 GM/50 ML BAG IV (21:03)
[2024-12-14 22:12] LABS: Troponin I 0.077 ng/mL (0.0-0.045)
[2024-12-14] MEDS: MELATONIN 3 MG TABLET PO (22:29)
[2024-12-15] VITALS (9 sets, daily range): BP systolic 104–180; BP diastolic 69–101; PULSE 59–83; RESP 14–97; TEMP 36.4–36.8; O2SAT 96–98; BMI 29.9; BMI 29.8
[2024-12-15 05:15] LABS: Basophils % (Auto) 1 % (0-2.5); Eosinophils # (Auto) 0.4 Thou/mm3 (0.0-0.5); Eosinophils % (Auto) 9 % (0-10); Hematocrit 31.7 % (41.0-53.0); Hemoglobin 10.7 g/dL (13.5-16.0); Immature Granulocytes % (Auto) 0 % (0-0); Immature Granulocytes Auto 0.01 Thou/mm3 (0.00-0.00); Lymphocytes # (Auto) 1.1 Thou/mm3 (1.0-4.8); Lymphocytes % (Auto) 26 % (10-50); Mean Corpuscular HGB Conc 33.8 g/dl (31.0-37.0); Mean Corpuscular Hemoglobin 29.2 pg (25.0-35.0); Mean Corpuscular Volume 86 fL (80-100); Monocytes # (Auto) 0.5 Thou/mm3 (0.0-0.8); Monocytes % (Auto) 10 % (0-12); Neutrophils # (Auto) 2.3 Thou/mm3 (1.8-7.7); Neutrophils % (Auto) 54 % (37-80); Nucleated Red Blood Cell % 0 /100 WBC (0); Platelet Count 110 Thou/mm3 (140-440); RDW Standard Deviation 39.9 fL (35.1-43.9); Red Blood Count 3.67 Miln/mm3 (4.50-5.90); White Blood Count 4.3 Thou/mm3 (3.8-10.6)
[2024-12-15 05:32] LABS: Albumin, Serum 3.6 gm/dL (3.4-4.8); Anion Gap 8 (7-16); BUN/Creatinine Ratio 14 Ratio (12-20); Blood Urea Nitrogen 30 mg/dL (9-23); Calcium 8.8 mg/dL (8.3-10.6); Calcium (Corrected) 9.1 mg/dL (8.5-10.1); Carbon Dioxide 24.5 mMol/L (20.0-31.0); Chloride 110 mMol/L (98-107); Creatinine (Component) 2.1 mg/dL (0.6-1.3); Estimated Creatinine Clearance 35.6 mL/min (>60); Glucose 104 mg/dL (74-106); Magnesium 1.8 mg/dL (1.6-2.6); Osmolality,Calculated 289 (275-295); Phosphorous 2.9 mg/dL (2.4-5.1); Potassium 3.8 mMol/L (3.4-5.1); Sodium 142 mMol/L (136-145); eGFR 33 See Note
[2024-12-15] MEDS: GABAPENTIN 100 MG CAPSULE 200 MG PO ×3 (05:33→21:09)
[2024-12-15 05:34] LABS: Troponin I 0.074 ng/mL (0.0-0.045)
[2024-12-15] MEDS: TAMSULOSIN HCL 0.4 MG CAPSULE PO (09:03)
[2024-12-15] MEDS: THIAMINE 100 MG TABLET PO (09:03)
[2024-12-15] MEDS: HEPARIN SOD INJ 5000 UNIT/ML VIAL SC ×2 (09:03→20:10)
[2024-12-15] MEDS: FOLIC ACID 1 MG TABLET PO (09:03)
[2024-12-15] MEDS: SENNA TABLET 1 TAB PO (09:03)
--- NOTE | 2024-12-15 10:25 | PC.SS ---
Follow up note: Pt is on IV fluids. Pt will return home upon dc. Dr. Armstrong is consulting.
--- NOTE | 2024-12-15 10:30 | CHAP ---
Visited with patient and had prayer.
--- NOTE | 2024-12-15 11:56 | PC.SS ---
Follow up note: SS met with patient regarding his d/c plan.? Pt is alert/oriented.? Pt was admitted for REN On CKD.? Pt confirmed demographic and contact information is correct on facesheet.? Pt resides with and 2 daughters.? Pt states he is wheelchair bound and transfers himself into wheelchair.? Pt requires assistance with ADLs.? Pt states his helps care for him at home.? Pt named his , Nena Tang medical decision maker if he is unable.? SS provided verbal d/c options for home or SNF.? Patient?s choice is to return home upon d/c.? Pt does not have an advance directive, SS offered, and pt declined.? Pt states not diabetic and is not on dialysis.? Pt sates he followed up with PCP 2 weeks (in November). D/C plan:? Return home Next of Kin:? Nena Tang, , phone# [phone] PCP:? Dr. Yury Russell from [facility] Address:? Correct on facesheet
[2024-12-15 12:18] LABS: Troponin I 0.075 ng/mL (0.0-0.045)
--- NOTE | 2024-12-15 13:21 | PD.RESPRO ---
Documentation for date of: 12/15/24 Subjective Subjective Interval history: Mr. Tang is a 69-year-old male with PMHx of hypotension, on MIDODRINE, cardiopulmonary arrest in 12/2023, HLD, CKD stage III, right sided nephrostomy, GERD, spinal stenosis s/p surgical correction in 11/2024, presenting with generalized weakness for 3 days, accompanied by groin and lower abdominal discomfort. He is wheelchair-bound due to prior spine surgery and reports increased difficulty with self-transfers due to full body weakness. He denies any issues with urination, dysuria, hematuria, fever, chills, nausea, vomiting, or diarrhea, and mentions his food intake has been poor recently. He is experiencing constipation, with the last bowel movement occurring 3 days ago. He follows up with his PCP, Dr. Russell, and was last seen two weeks ago. The patient had a right nephrectomy for pyelonephrosis and nonfunction, followed up with Dr. Armstrong-office copy selector. Although he has never seen a urologist, records indicate he has consulted Dr. Ferreira. The team has consulted for REN and CKD stage III. On admission vitals WNL. He had a creatinine of 2.7 with baseline around 1.7. eGFR 32 with baseline 25. Electrolytes are normal. UA was turbid and positive for UTI. Hemoglobin around 12, with baseline around 11. He has slight elevation of troponin of 0.075 and BNP of 331. Renal ultrasound showed moderate left renal parenchymal scar formation, dimensions measured 9.9 cm and renal cortex of 1.3 cm, contracted urinary bladder around Talley catheter, s/p right nephrectomy. He has received NS 1 L bolus and continued on maintenance at 75 cc an hour. He is +1.9 L and had a 24-hour urine output of 660 cc. Continued on CEFTRIAXONE for UTI. 12/15/2024: no acute overnight events. No new symptoms or worsening of symptoms. CR is improving, 2.1 today. Urine output improved, 1L overnight. Urine grew Serratia marcescens, sensitive to CTX. Exam Vital Signs Temp Pulse Resp BP Pulse Ox O2 Del Method 97.8 F 64 17 159/85 H 97 Room Air 12/15/24 12:00 12/15/24 12:12/15/24 12:12/15/24 12:12/15/24 12:00 12/15/24 12:00 Narrative Exam General: Appearing adult male, NAD. HEENT: Normocephalic, atraumatic, mucous membranes moist. Heart: Regular rate and rhythm, no murmurs. Lungs: Clear to auscultation with no wheezing or crackles. Abdomen: Obese and distended but soft, nontender, positive bowel sounds. No edema. No guarding or rebound tenderness. Neurologic: AOx3, no gross neurological deficit, and patient able to move all 4 extremities. Extremities: No edema claudette. Skin: No rash or ecchymoses. Objective Labs 12/16/24 04:55 12/16/24 04:55 Labs: Laboratory Results - last 24 hr 12/14/24 12/14/24 12/15/24 15:43 21:43 04:20 WBC 4.3 RBC 3.67 L Hgb 10.7 L Hct 31.7 L MCV 86 MCH 29.2 MCHC 33.8 RDW Std Deviation 39.9 Plt Count 110 L Neut % (Auto) 54 Lymph % (Auto) 26 [place] % (Auto) 10 Eos % (Auto) 9 Baso % (Auto) 1 Neut # (Auto) 2.3 Lymph # (Auto) 1.1 [place] # (Auto) 0.5 Eos # (Auto) 0.4 Baso # (Auto) 0.0 Immature Gran # (Auto) 0.01 H Absolute Nucleated RBC 0.00 Immature Gran % 0 Nucleated RBC % 0 Sodium 142 Potassium 3.8 D Chloride 110 H Carbon Dioxide 24.5 Anion Gap 8 BUN 30 H Creatinine 2.1 H Estim Creat Clear Calc 35.6 L eGFR 33 L BUN/Creatinine Ratio 14 Glucose 104 Calculated Osmolality 289 Calcium 8.8 Corrected Calcium 9.1 Phosphorus 2.9 Magnesium 1.8 Troponin I 0.078 H* 0.077 H* 0.074 H* Albumin 3.6 12/15/24 11:00 WBC RBC Hgb Hct MCV MCH MCHC RDW Std Deviation Plt Count Neut % (Auto) Lymph % (Auto) [place] % (Auto) Eos % (Auto) Baso % (Auto) Neut # (Auto) Lymph # (Auto) [place] # (Auto) Eos # (Auto) Baso # (Auto) Immature Gran # (Auto) Absolute Nucleated RBC Immature Gran % Nucleated RBC % Sodium Potassium Chloride Carbon Dioxide Anion Gap BUN Creatinine Estim Creat Clear Calc eGFR BUN/Creatinine Ratio Glucose Calculated Osmolality Calcium Corrected Calcium Phosphorus Magnesium Troponin I 0.075 H* Albumin Quality Measures Quality Measures none Advance care planning discussed with:: patient Assessment & Plan Assessment Current Active Medications: Generic Name Dose Route Start Last Admin Trade Name Freq PRN Reason Stop Dose Admin Acetaminophen 650 mg 12/13/24 17:52 12/14/24 16:24 Acetaminophen 325 Mg Tablet PO 01/12/25 17:51 650 mg Q6H PRN Administration Fever >100.4 or Pain 1-3 Atorvastatin Calcium 40 mg 12/13/24 21:00 12/14/24 21:01 Atorvastatin Calcium 20 Mg Tablet PO 01/12/25 20:59 40 mg HS VIJAY Administration Buprenorphine- 0 ea 12/14/24 09:15 12/15/24 09:04 Naloxone 4-1 Mg Film SL 01/13/25 09:14 1 film BID VIJAY Administration Folic Acid 1 mg 12/15/24 09:00 12/15/24 09:03 Folic Acid 1 Mg Tablet PO 01/14/25 08:59 1 mg QDAY VIJAY Administration Gabapentin 200 mg 12/14/24 18:05 12/15/24 05:33 Gabapentin 100 Mg Capsule PO 01/13/25 18:04 200 mg TID VIJAY Administration Heparin Sodium (Porcine) 5,000 unit 12/13/24 21:00 12/15/24 09:03 Heparin Sod Inj 5000 Unit/Ml Vial SC 12/27/24 20:59 5,000 unit Q12HR VIJAY Administration Ceftriaxone Sodium/Dextrose 1 gm in 50 mls @ 100 mls/hr 12/14/24 21:00 12/14/24 21:03 Rocephin/D5w 1gm Iv Premix IV 12/21/24 20:59 100 mls/hr HS VIJAY Administration Lidocaine 1 patch 12/14/24 09:09 12/14/24 13:10 Lidocaine 5% 1 Patch TOP 01/13/25 09:08 1 patch UD PRN Administration PAIN Protocol Magnesium Hydroxide 30 ml 12/13/24 17:52 Milk Of Magnesia Susp 30 Ml Udc PO 01/12/25 17:51 QDAY PRN CONSTIPATION Protocol Home Medication- 1 ea 12/13/24 21:00 12/14/24 21:19 Please Speak With PO 01/12/25 20:59 Not Given Patient Caregiver To [facility] VIJAY Have Rx Brought To [facility] Ondansetron HCl 4 mg 12/13/24 17:52 Ondansetron Inj 2 Mg/Ml Inj 2 Ml IV 01/12/25 17:51 Q6H PRN NAUSEA OR VOMITING Protocol Sennosides 1 tab 12/13/24 18:00 12/15/24 09:03 Senna Tablet PO 01/12/25 17:59 1 tab QDAY VIJAY Administration Protocol Tamsulosin HCl 0.4 mg 12/15/24 09:00 12/15/24 09:03 Tamsulosin Hcl 0.4 Mg Capsule PO 01/14/25 08:59 0.4 mg QDAY VIJAY Administration Thiamine HCl 100 mg 12/15/24 09:00 12/15/24 09:03 Thiamine 100 Mg Tablet PO 01/14/25 08:59 100 mg QDAY VIJAY Administration Plan In summary: 69-year-old male with PMHx of hypertension, previously on MIDODRINE, cardiopulmonary arrest in 12/2023, HLD, CKD stage III, right sided nephrostomy, GERD, spinal stenosis s/p surgical correction in 11/2024, presenting with generalized weakness for 3 days, accompanied by groin and lower abdominal discomfort. The hospitalist team consulted for REN on CKD stage III. Overall no change in plan. Dc IVF. Continue oral hydration and monitoring renal function. Continue treating UTI. REN likely prerenal vs obstructive uropathy vs UTI CKD III S/p right nephrectomy 2021 Likely in settings of UTI and poor oral intake including fluids as patient admits. Creatinine of 2.7 with baseline around 1.7. eGFR 32 with baseline 25. Urine NA 73, K34, chloride 67.5. Renal ultrasound showed moderate left renal parenchymal scar formation, absent right kidney. No hydronephrosis. Has signs of decreased urine output. Received 1 L bolus NS in ED. Continued on maintenance fluids. Renal function improving, CR 2.1 today. UA grew Serratia marcescens, sensitive to CTX. ? Continue CTX for UTI ? Continue Talley ? Renally dose meds, avoid overdiuresis and NEPHROTOXINS ? Daily CMP NSTEMI type II versus type I Cardiac chest pain Elevated troponin Chronic neck/back pain Hx lumbar stenosis s/p fusion 2011 Chronic constipation Hyperlipidemia Anxiety and depression Managed per primary team. Patient case was discussed with attending, Dr. Armstrong. Marietta Bailey DO PGYI Attending Provider Attestation/Addendum Patient seen and examined with resident physician Dr. Mcmanus. Note reviewed, agree with findings and recommendations. Urine cultures positive for Serratia. On appropriate antibiotics. Creatinine improving. Blood pressure still remains on the lower side. Continue with gentle IV fluids and midodrine. DC Talley catheter after training. Added tamsulosin as patient came with urinary retention.
--- NOTE | 2024-12-15 13:34 | ESPR_ITS ---
<Statement entered by Tosin Ford MD - 12/22/24 09:24> I reviewed above note and agree with findings and plans. I have also personally examined the patient with medicine team and went over assessment and plan with medical team including network internship and resident physician. <Statement entered by Jace Thompson MD - 12/16/24 15:24> I discussed with and supervised the network internship physician involved in the care of this patient. Patient assessment and plan was discussed with entire medicine team, including my attending. I agree with the assessment and plan as documented by network internship doctor. Patient care was discussed with my attending physician Dr. Liliana Thompson, PGY-2 Documentation for date of: 12/15/24 Subjective Subjective Interval history: Patient seen and examined at bedside. Patient's labs and vitals reviewed. Will continue IV NS today, renal function is improved. Creatinine 2.1, BUN 30, GFR 33 today. Patient reports that chest pain has improved. Otherwise we will continue to monitor renal function. Will continue IV fluids today. Anticipate discharge in 24 hours. Ordered physical therapy. Exam Vital Signs Temp Pulse Resp BP Pulse Ox O2 Del Method 97.8 F 64 17 159/85 H 97 Room Air 12/15/24 12:00 12/15/24 12:00 12/15/24 12:00 12/15/24 12:00 12/15/24 12:00 12/15/24 12:00 Narrative Exam Physical Exam General: Awake and in no acute distress. Conversational often rambling, and non- toxic appearing. HEENT: Normocephalic, atraumatic, mucous membranes moist. Heart: Regular rate and rhythm, no murmurs. Lungs: Clear to auscultation with no wheezing or crackles. Abdomen: Obese and distended but soft, nontender, positive bowel sounds. No edema. No guarding or rebound tenderness. Neurologic: Alert and oriented x3, no gross neurological deficit, and patient able to move all 4 extremities. Extremities: No edema. Skin: No rash or ecchymoses. Objective Labs 12/15/24 04:20 12/15/24 04:20 Labs: Laboratory Results - last 24 hr 12/14/24 12/14/24 12/15/24 15:43 21:43 04:20 WBC 4.3 RBC 3.67 L Hgb 10.7 L Hct 31.7 L MCV 86 MCH 29.2 MCHC 33.8 RDW Std Deviation 39.9 Plt Count 110 L Neut % (Auto) 54 Lymph % (Auto) 26 [place] % (Auto) 10 Eos % (Auto) 9 Baso % (Auto) 1 Neut # (Auto) 2.3 Lymph # (Auto) 1.1 [place] # (Auto) 0.5 Eos # (Auto) 0.4 Baso # (Auto) 0.0 Immature Gran # (Auto) 0.01 H Absolute Nucleated RBC 0.00 Immature Gran % 0 Nucleated RBC % 0 Sodium 142 Potassium 3.8 D Chloride 110 H Carbon Dioxide 24.5 Anion Gap 8 BUN 30 H Creatinine 2.1 H Estim Creat Clear Calc 35.6 L eGFR 33 L BUN/Creatinine Ratio 14 Glucose 104 Calculated Osmolality 289 Calcium 8.8 Corrected Calcium 9.1 Phosphorus 2.9 Magnesium 1.8 Troponin I 0.078 H* 0.077 H* 0.074 H* Albumin 3.6 12/15/24 11:00 WBC RBC Hgb Hct MCV MCH MCHC RDW Std Deviation Plt Count Neut % (Auto) Lymph % (Auto) [place] % (Auto) Eos % (Auto) Baso % (Auto) Neut # (Auto) Lymph # (Auto) [place] # (Auto) Eos # (Auto) Baso # (Auto) Immature Gran # (Auto) Absolute Nucleated RBC Immature Gran % Nucleated RBC % Sodium Potassium Chloride Carbon Dioxide Anion Gap BUN Creatinine Estim Creat Clear Calc eGFR BUN/Creatinine Ratio Glucose Calculated Osmolality Calcium Corrected Calcium Phosphorus Magnesium Troponin I 0.075 H* Albumin Quality Measures Quality Measures none Advance care planning discussed with:: patient Assessment & Plan Assessment Current Active Medications: Generic Name Dose Route Start Last Admin Trade Name Freq PRN Reason Stop Dose Admin Acetaminophen 650 mg 12/13/24 17:52 12/14/24 16:24 Acetaminophen 325 Mg Tablet PO 01/12/25 17:51 650 mg Q6H PRN Administration Fever >100.4 or Pain 1-3 Atorvastatin Calcium 40 mg 12/13/24 21:00 12/14/24 21:01 Atorvastatin Calcium 20 Mg Tablet PO 01/12/25 20:59 40 mg HS VIJAY Administration Buprenorphine- 0 ea 12/14/24 09:15 12/15/24 09:04 Naloxone 4-1 Mg Film SL 01/13/25 09:14 1 film BID VIJAY Administration Folic Acid 1 mg 12/15/24 09:00 12/15/24 09:03 Folic Acid 1 Mg Tablet PO 01/14/25 08:59 1 mg QDAY VIJAY Administration Gabapentin 200 mg 12/14/24 18:05 12/15/24 05:33 Gabapentin 100 Mg Capsule PO 01/13/25 18:04 200 mg TID VIJAY Administration Heparin Sodium (Porcine) 5,000 unit 12/13/24 21:00 12/15/24 09:03 Heparin Sod Inj 5000 Unit/Ml Vial SC 12/27/24 20:59 5,000 unit Q12HR VIJAY Administration Ceftriaxone Sodium/Dextrose 1 gm in 50 mls @ 100 mls/hr 12/14/24 21:00 12/14/24 21:03 Rocephin/D5w 1gm Iv Premix IV 12/21/24 20:59 100 mls/hr HS VIJAY Administration Lidocaine 1 patch 12/14/24 09:09 12/14/24 13:10 Lidocaine 5% 1 Patch TOP 01/13/25 09:08 1 patch UD PRN Administration PAIN Protocol Magnesium Hydroxide 30 ml 12/13/24 17:52 Milk Of Magnesia Susp 30 Ml Udc PO 01/12/25 17:51 QDAY PRN CONSTIPATION Protocol Home Medication- 1 ea 12/13/24 21:00 12/14/24 21:19 Please Speak With PO 01/12/25 20:59 Not Given Patient Caregiver To [facility] Have Rx Brought To [facility] Ondansetron HCl 4 mg 12/13/24 17:52 Ondansetron Inj 2 Mg/Ml Inj 2 Ml IV 01/12/25 17:51 Q6H PRN NAUSEA OR VOMITING Protocol Sennosides 1 tab 12/13/24 18:00 12/15/24 09:03 Senna Tablet PO 01/12/25 17:59 1 tab QDAY VIJAY Administration Protocol Tamsulosin HCl 0.4 mg 12/15/24 09:00 12/15/24 09:03 Tamsulosin Hcl 0.4 Mg Capsule PO 01/14/25 08:59 0.4 mg QDAY VIJAY Administration Thiamine HCl 100 mg 12/15/24 09:00 12/15/24 09:03 Thiamine 100 Mg Tablet PO 01/14/25 08:59 100 mg QDAY VIJAY Administration Plan Assessment and plan Summary: Mr. Tang is a 69-year-old male with past medical history of hypotension (previously on midodrine), cardiopulmonary arrest 12/2023, hyperlipidemia, CKD stage III, right-sided nephrectomy, GERD, chronic neck/back pain secondary to spinal stenosis s/p surgical repair 2011, BPH, chronic constipation, depression/anxiety, and normocytic anemia who presented to the ED on 12/13/2024 for 3 days of generalized weakness. He was found to have REN on CKD and admitted for further management. #REN on CKD stage 3 #Prerenal due to dehydration versus postrenal obstructive uropathy #Urinary tract infection #History of right nephrectomy 2019 #History of BPH #History of possible neurogenic bladder secondary to spinal stenosis s/p surgery 2011 Patient presented with generalized weakness, complaining of abdominal/groin ache. On examination patient does not have any focal tenderness. Creatinine is elevated at 2.7 above baseline 1.7-1.8 from 2023. He has history of R nephrectomy in 2019 for pyelonephrosis and nonfunction, used to follow with Dr. Ferreira in [id number]. Currently denies having a melter clerk and/or urologist. Was started on IV fluids, place Talley, measure I&Os, consult nephrology. Patient received 1L in ED on admission. Urine analysis showed bacteria 4+ WBC 156, RBC 9, leukocyte esterase positive, nitrite positive protein 1+ Urine sodium 73, potassium 34, chloride 67.5 Renal ultrasound showed moderate left parenchymal scar formation, 12/14/2024: Creatinine 2.2, BUN 38, GFR 33, improving Plan: -Continue IV normal saline 75 cc/h till later today. -Continue IV ceftriaxone (12/13- -Continue Talley -Strict I&Os -Avoid nephrotoxic agents -Will follow renal panel in a.m. -Nephrology consulted, appreciate recommendations #NSTEMI type I VS type II #Cardiac chest pain #Elevated troponin Patient complains of intermittent substernal chest pain/pressure radiating to neck at times, reports pain to be currently 4/10. Patient's initial troponin 0.075, Troponin peak 0.078, eventually down trended. BNP 331 EKG showed no acute ST?T changes as compared to previous EKGs. EKG does show T wave inversions in lead V3 to V6 and some inversion in inferior leads. Patient will need outpatient cardiology workup considering NSTEMI type II. Plan: -Monitor for chest pain, consider repeating EKG/troponin as needed -Follow-up patient with cardiology. #Chronic neck/back pain #History of lumbar spinal stenosis s/p fusion 2011 Had surgery at [facility] in 2011, patient states has been wheelchair bound since. He has a pain specialist of which he does not remember the name. He is on buprenorphine-naloxone. Old lumbar MRI on record from 2020 shows lumbar fusion L5-S1 with anatomic alignment, L4-L5 moderate overall spinal stenosis, L3-L4 moderate to severe overall spinal stenosis, including 8 mm central lumbar disc bulge. Old cervical spine CT on record from 2021 shows cervical fusion C5-C7. -Continue home buprenorphine-naloxone 4-1 mg BID -Lidocaine patch as needed #Chronic constipation Patient on admission states he has not had bowel movement in 3 days. -Senna 1 tab qday -Milk of magnesia 30 ml qday as needed #History of hyperlipidemia -Continue home atorvastatin 40 mg HS #History of depression/anxiety -Continue home amitriptyline 10 mg qday DVT prophylaxis: Heparin GI prophylaxis: Not indicated Diet: Renal Lines: Peripheral IV Code status: Full code Physical therapy: Ordered Case discussed with Attending Dr. Ford and senior PGY 2 Dr. Thompson. Maritza Rock PGY1 Disclaimer: This note was dictated by speech recognition. Minor errors in interstate bus dispatcher may be present due to voice recognition software.
--- NOTE | 2024-12-15 14:42 | PC.NURSE ---
MD notified for patient's high blood pressure 184/111 at 8:00 AM and 159/85 at 12 noon, patient asymptomatic. MD was also notified regarding troponin result of 0.075.
[2024-12-15] MEDS: LIDOCAINE 5% 1 PATCH TOP (18:27)
[2024-12-15] MEDS: ATORVASTATIN CALCIUM 20 MG TABLET 40 MG PO (20:09)
[2024-12-15] MEDS: cefTRIAXone/D5w 1gm IV premix 1 GM/50 ML BAG IV (20:09)
[2024-12-15] MEDS: bisacodyL 10 MG SUPP PR (20:11)
[2024-12-16] VITALS (9 sets, daily range): BP systolic 82–166; BP diastolic 52–95; PULSE 58–94; RESP 12–97; TEMP 36.4–36.8; O2SAT 96–98; BMI 29.6
[2024-12-16] MEDS: GABAPENTIN 100 MG CAPSULE 200 MG PO ×2 (05:17→13:55)
[2024-12-16 05:31] LABS: Basophils % (Auto) 0 % (0-2.5); Eosinophils # (Auto) 0.4 Thou/mm3 (0.0-0.5); Immature Granulocytes % (Auto) 0 % (0-0); Lymphocytes # (Auto) 1.2 Thou/mm3 (1.0-4.8); Mean Corpuscular Volume 86 fL (80-100); Monocytes % (Auto) 11 % (0-12); Neutrophils # (Auto) 2.8 Thou/mm3 (1.8-7.7); Nucleated Red Blood Cell % 0 /100 WBC (0)
[2024-12-16 05:34] LABS: Eosinophils % (Auto) 9 % (0-10); Hematocrit 31.6 % (41.0-53.0); Hemoglobin 10.8 g/dL (13.5-16.0); Immature Granulocytes Auto 0.01 Thou/mm3 (0.00-0.00); Lymphocytes % (Auto) 24 % (10-50); Mean Corpuscular HGB Conc 34.2 g/dl (31.0-37.0); Mean Corpuscular Hemoglobin 29.3 pg (25.0-35.0); Monocytes # (Auto) 0.5 Thou/mm3 (0.0-0.8); Neutrophils % (Auto) 56 % (37-80); Platelet Count 108 Thou/mm3 (140-440); RDW Standard Deviation 39.8 fL (35.1-43.9); Red Blood Count 3.68 Miln/mm3 (4.50-5.90); White Blood Count 4.9 Thou/mm3 (3.8-10.6)
[2024-12-16 05:51] LABS: Albumin, Serum 3.5 gm/dL (3.4-4.8); Anion Gap 7 (7-16); BUN/Creatinine Ratio 13 Ratio (12-20); Blood Urea Nitrogen 25 mg/dL (9-23); Calcium 8.7 mg/dL (8.3-10.6); Calcium (Corrected) 9.1 mg/dL (8.5-10.1); Carbon Dioxide 24.9 mMol/L (20.0-31.0); Chloride 107 mMol/L (98-107); Creatinine (Component) 1.9 mg/dL (0.6-1.3); Estimated Creatinine Clearance 39.8 mL/min (>60); Glucose 117 mg/dL (74-106); Magnesium 1.6 mg/dL (1.6-2.6); Osmolality,Calculated 282 (275-295); Phosphorous 2.5 mg/dL (2.4-5.1); Sodium 139 mMol/L (136-145); eGFR 38 See Note
--- NOTE | 2024-12-16 08:57 | ESPR_ITS ---
Documentation for date of: 12/16/24 Subjective Subjective Interval history: Mr. Tang is a 69-year-old male with PMHx of hypotension, on MIDODRINE, cardiopulmonary arrest in 12/2023, HLD, CKD stage III, right sided nephrostomy, GERD, spinal stenosis s/p surgical correction in 11/2024, presenting with generalized weakness for 3 days, accompanied by groin and lower abdominal discomfort. He is wheelchair-bound due to prior spine surgery and reports increased difficulty with self-transfers due to full body weakness. He denies any issues with urination, dysuria, hematuria, fever, chills, nausea, vomiting, or diarrhea, and mentions his food intake has been poor recently. He is experiencing constipation, with the last bowel movement occurring 3 days ago. He follows up with his PCP, Dr. Russell, and was last seen two weeks ago. The patient had a right nephrectomy for pyelonephrosis and nonfunction, followed up with Dr. Armstrong-director of restaurant operations. Although he has never seen a urologist, records indicate he has consulted Dr. Ferreira. The team has consulted for REN and CKD stage III. On admission vitals WNL. He had a creatinine of 2.7 with baseline around 1.7. eGFR 32 with baseline 25. Electrolytes are normal. UA was turbid and positive for UTI. Hemoglobin around 12, with baseline around 11. He has slight elevation of troponin of 0.075 and BNP of 331. Renal ultrasound showed moderate left renal parenchymal scar formation, dimensions measured 9.9 cm and renal cortex of 1.3 cm, contracted urinary bladder around Talley catheter, s/p right nephrectomy. He has received NS 1 L bolus and continued on maintenance at 75 cc an hour. He is +1.9 L and had a 24-hour urine output of 660 cc. Continued on CEFTRIAXONE for UTI. 12/15/2024: no acute overnight events. No new symptoms or worsening of symptoms. CR is improving, 2.1 today. Urine output improved, 1L overnight. Urine grew Serratia marcescens, sensitive to CTX. 12/16/2024: Examined at bedside. No acute overnight events. Seems to be stable without worsening of symptoms or new symptoms. DC'd Talley catheter. Creatinine improving at 1.9 today, GFR improving at 38 today. Okay to discharge from nephrology perspective, primary team informed. Will see him in office in 1-2 weeks. Family asked about fluid restriction to discharge, advised no need for fluid restriction. Exam Vital Signs Temp Pulse Resp BP Pulse Ox O2 Del Method 97.6 F 69 14 103/58 L 98 Room Air 12/16/24 04:00 12/16/24 04:00 12/16/24 04:00 12/16/24 04:00 12/16/24 04:00 12/16/24 04:00 Narrative Exam General: Appearing adult male, NAD. HEENT: Normocephalic, atraumatic, mucous membranes moist. Heart: Regular rate and rhythm, no murmurs. Lungs: Clear to auscultation with no wheezing or crackles. Abdomen: Obese and distended but soft, nontender, positive bowel sounds. No edema. No guarding or rebound tenderness. Neurologic: AOx3, no gross neurological deficit, and patient able to move all 4 extremities. Extremities: No edema claudette. Skin: No rash or ecchymoses. Objective Labs 12/16/24 04:55 12/16/24 04:55 Labs: Laboratory Results - last 24 hr 12/15/24 12/16/24 11:00 04:55 WBC 4.9 RBC 3.68 L Hgb 10.8 L Hct 31.6 L MCV 86 MCH 29.3 MCHC 34.2 RDW Std Deviation 39.8 Plt Count 108 L Neut % (Auto) 56 Lymph % (Auto) 24 Grand % (Auto) 11 Eos % (Auto) 9 Baso % (Auto) 0 Neut # (Auto) 2.8 Lymph # (Auto) 1.2 Grand # (Auto) 0.5 Eos # (Auto) 0.4 Baso # (Auto) 0.0 Immature Gran # (Auto) 0.01 H Absolute Nucleated RBC 0.00 Immature Gran % 0 Nucleated RBC % 0 Sodium 139 Potassium 4.0 Chloride 107 Carbon Dioxide 24.9 Anion Gap 7 BUN 25 H Creatinine 1.9 H Estim Creat Clear Calc 39.8 L eGFR 38 L BUN/Creatinine Ratio 13 Glucose 117 H Calculated Osmolality 282 Calcium 8.7 Corrected Calcium 9.1 Phosphorus 2.5 Magnesium 1.6 Troponin I 0.075 H* Albumin 3.5 Quality Measures Quality Measures none Advance care planning discussed with:: patient Assessment & Plan Assessment Current Active Medications: Generic Name Dose Route Start Last Admin Trade Name Freq PRN Reason Stop Dose Admin Acetaminophen 650 mg 12/13/24 17:52 12/14/24 16:24 Acetaminophen 325 Mg Tablet PO 01/12/25 17:51 650 mg Q6H PRN Administration Fever >100.4 or Pain 1-3 Atorvastatin Calcium 40 mg 12/13/24 21:00 12/15/24 20:09 Atorvastatin Calcium 20 Mg Tablet PO 01/12/25 20:59 40 mg HS VIJAY Administration Buprenorphine- 0 ea 12/14/24 09:15 12/15/24 20:09 Naloxone 4-1 Mg Film SL 01/13/25 09:14 1 film BID VIJAY Administration Folic Acid 1 mg 12/15/24 09:00 12/15/24 09:03 Folic Acid 1 Mg Tablet PO 01/14/25 08:59 1 mg QDAY VIJAY Administration Gabapentin 200 mg 12/14/24 18:05 12/16/24 05:17 Gabapentin 100 Mg Capsule PO 01/13/25 18:04 200 mg TID VIJAY Administration Heparin Sodium (Porcine) 5,000 unit 12/13/24 21:00 12/15/24 20:10 Heparin Sod Inj 5000 Unit/Ml Vial SC 12/27/24 20:59 5,000 unit Q12HR VIJAY Administration Ceftriaxone Sodium/Dextrose 1 gm in 50 mls @ 100 mls/hr 12/14/24 21:00 12/15/24 20:09 Rocephin/D5w 1gm Iv Premix IV 12/21/24 20:59 100 mls/hr HS VIJAY Administration Lidocaine 1 patch 12/14/24 09:09 12/15/24 18:27 Lidocaine 5% 1 Patch TOP 01/13/25 09:08 1 patch UD PRN Administration PAIN Protocol Magnesium Hydroxide 30 ml 12/13/24 17:52 Milk Of Magnesia Susp 30 Ml Udc PO 01/12/25 17:51 QDAY PRN CONSTIPATION Protocol Home Medication- 1 ea 12/13/24 21:00 12/15/24 20:10 Please Speak With PO 01/12/25 20:59 Not Given Patient Caregiver To HS VIJAY Have Rx Brought To [facility] Ondansetron HCl 4 mg 12/13/24 17:52 Ondansetron Inj 2 Mg/Ml Inj 2 Ml IV 01/12/25 17:51 Q6H PRN NAUSEA OR VOMITING Protocol Sennosides 1 tab 12/13/24 18:00 12/15/24 09:03 Senna Tablet PO 01/12/25 17:59 1 tab QDAY VIJAY Administration Protocol Tamsulosin HCl 0.4 mg 12/15/24 09:00 12/15/24 09:03 Tamsulosin Hcl 0.4 Mg Capsule PO 01/14/25 08:59 0.4 mg QDAY VIJAY Administration Thiamine HCl 100 mg 12/15/24 09:00 12/15/24 09:03 Thiamine 100 Mg Tablet PO 01/14/25 08:59 100 mg QDAY VIJAY Administration Plan In summary: 69-year-old male with PMHx of hypertension, previously on MIDODRINE, cardiopulmonary arrest in 12/2023, HLD, CKD stage III, right sided nephrostomy, GERD, spinal stenosis s/p surgical correction in 11/2024, presenting with generalized weakness for 3 days, accompanied by groin and lower abdominal discomfort. The hospitalist team consulted for REN on CKD stage III. Renal function stable. Cleared for discharge from nephrology perspective. Will likely need oral ANTIBIOTICS for UTI on discharge. F/U in office in 1-2 weeks. REN likely prerenal vs obstructive uropathy vs UTI CKD III S/p right nephrectomy 2021 Likely in settings of UTI and poor oral intake including fluids as patient admits. Creatinine of 2.7 with baseline around 1.7. eGFR 32 with baseline 25. Urine NA 73, K34, chloride 67.5. Renal ultrasound showed moderate left renal parenchymal scar formation, absent right kidney. No hydronephrosis. Has signs of decreased urine output. Received 1 L bolus NS in ED. Continued on maintenance fluids. Renal function improving, CR 2.1 today. UA grew Serratia marcescens, sensitive to CTX. ? Will need ANTIBIOTICS outpatient for UTI. ? Discontinued Talley ? Renally dose meds, avoid overdiuresis and NEPHROTOXINS ? Daily CMP ? Follow-up in office in 1-2 weeks. NSTEMI type II versus type I Cardiac chest pain Elevated troponin Chronic neck/back pain Hx lumbar stenosis s/p fusion 2011 Chronic constipation Hyperlipidemia Anxiety and depression Managed per primary team. Patient case was discussed with attending, Dr. Armstrong. Marietta Bailey DO PGYI Attending Provider Attestation/Addendum Patient seen and examined with resident physician Dr. Mcmanus. Note reviewed, agree with findings and recommendations. Urine cultures positive for Serratia. On appropriate antibiotics. Creatinine improving. Blood pressure still remains on the lower side. Continue with gentle IV fluids and midodrine. DC Talley catheter after training. Added tamsulosin as patient came with urinary retention.
[2024-12-16] MEDS: SENNA TABLET 1 TAB PO (08:58)
[2024-12-16] MEDS: FOLIC ACID 1 MG TABLET PO (08:58)
[2024-12-16] MEDS: THIAMINE 100 MG TABLET PO (08:58)
[2024-12-16] MEDS: HEPARIN SOD INJ 5000 UNIT/ML VIAL SC (08:58)
[2024-12-16] MEDS: TAMSULOSIN HCL 0.4 MG CAPSULE PO (08:58)
[2024-12-16] MEDS: MIDODRINE 5 MG TABLET 10 MG PO ×2 (12:05→13:54)
[2024-12-16] MEDS: SODIUM CHLORIDE 0.9% 1000 ML 1,000 ML 999 ML IV (12:12)
--- NOTE | 2024-12-16 14:29 | PD.RESDS ---
Planned Discharge Date 12/16/24 DS: Providers Provider Date of admission: 12/13/24 17:50 Primary care physician: Yury Russell MD Admitting Provider: Alejandro Stone MD Attending Provider on Admission: Tosin Ford MD Consults: 12/13/24 18:00 Consult to Nephrology Stat Comment: REN on CKD Consulting Provider: Shameka Armstrong 12/15/24 11:45 Referral Physical Therapy Urgent Comment: Physician Instructions: Attending Provider on DC: Jace Thompson MD Discharging Provider: Jace Thompson MD DS: Diagnosis Problem List Completed Was Problem List Reviewed/Reconciled?: Yes Hospital Course Hospital Course Hospital course: Mr. Tang a 69-year-old male with past medical history of hypotension (previously on midodrine), cardiopulmonary arrest 12/2023, hyperlipidemia, CKD stage III, right-sided nephrectomy, GERD, chronic neck/back pain secondary to spinal stenosis s/p surgical repair 2011, BPH, chronic constipation, depression/anxiety, and normocytic anemia who presented to the ED on 12/13/2024 with a chief complaint of generalized weakness. Patient was found to have REN on CKD and was admitted for further management. Aircraft Instrument Engineer Dr. Armstrong followed up on patient while he was in the hospital. Urinalysis and culture indicated complicated UTI, patient was treated with IV antibiotics. Over time patient's renal function improved to baseline and was safe to be discharged home on Levoquin 750 mg every 48 hours along with Tamsulosin for his BPH. Discharge summary was reviewed with my attending Dr. Ford. Jace Thompson, PGY-2 Status at Discharge Overall status at discharge: patient is progressing back to baseline Time Spent with Patient Time attestation: Total time spent providing and/or coordinating discharge services: Time spent: Greater than 30 minutes Exam Vital Signs Temp Pulse Resp BP Pulse Ox O2 Del Method 97.9 F 75 15 96/74 96 Room Air 12/16/24 08:00 12/16/24 13:54 12/16/24 08:00 12/16/24 13:54 12/16/24 08:00 12/16/24 08:00 Narrative Exam Physical Exam General: Awake and in no acute distress. Conversational often rambling, and non-toxic appearing. HEENT: Normocephalic, atraumatic, mucous membranes moist. Heart: Regular rate and rhythm, no murmurs. Lungs: Clear to auscultation with no wheezing or crackles. Abdomen: Obese and distended but soft, nontender, positive bowel sounds. No edema. No guarding or rebound tenderness. Neurologic: Alert and oriented x3, no gross neurological deficit, and patient able to move all 4 extremities. Extremities: No edema. Skin: No rash or ecchymoses. Discharge Plan Plan Patient Disposition: HOME (Self Care) Patient condition on transfer: Stable Prescriptions/Referrals Prescriptions/Med Rec: New tamsulosin 0.4 mg Capsule 0.4 mg PO QDAY Qty: 30 1RF levofloxacin 750 mg tablet 750 mg PO Q48H 4 Days Qty: 2 0RF Continued gabapentin 400 mg Capsule 400 mg PO TID atorvastatin 40 mg tablet 40 mg PO QDAY Patient Comments: TAKE 1 TABLET BY MOUTH EVERY DAY FOR 90 DAYS amitriptyline 10 mg tablet 10 mg PO .qdayhs Patient Comments: TAKE 1 TABLET BY MOUTH EVERY DAY AT BEDTIME FOR 30 DAYS folic acid 1 mg tablet 1 mg PO QDAY Patient Comments: TAKE 1 TABLET BY MOUTH EVERY DAY midodrine 10 mg tablet 10 mg PO TID Patient Comments: TAKE 1 TABLET BY MOUTH THREE TIMES A DAY buprenorphine-naloxone 4-1 mg film 1 film BUCCAL BID Patient Comments: DISSOLVE 1 FILM UNDER THE TONGUE TWICE A DAY thiamine HCl (vitamin B1) 100 mg tablet 100 mg PO QDAY Patient Comments: TAKE 1 TABLET BY MOUTH EVERY DAY lidocaine 5 % adhesive patch,medicated 1 patch TOPICAL Q24H Patient Comments: APPLY 1 PATCH DAILY EXTERNALLY AND REMOVE AFTER 12 HOURS FOR 30 DAYS Discontinued hydrocodone-acetaminophen 7.5-325 mg Tablet 1 tab PO Q8H PRN (Reason: Pain, Moderate) topiramate 50 mg Tablet 50 mg PO BID Referrals: Yury Russell MD [Primary Care Provider] - Patient/Caregiver Discharge Instructions Other Discharge Activity Instructions:: Please complete your antibiotic Levoquin for x4 days as prescribed Start your new medication Tamsulosin for BPH See your PCP within x1 week of discharge If symptoms worsen, go to your nearest hospital/ED Education Materials: Dysuria, Anemia and Kidney Disease, ED Bladder Infection, Male (Adult) Print Language: Arabic Stand Alone Forms: Lisbeth Award Info., Patient Portal Info Letter Discharge Order Discharge Orders: Discharge (Routine); Ordered 12/16/24 Ordered By: Jace Thompson Quality Discharge Quality Measures VTE prophylaxis
--- NOTE | 2024-12-16 18:04 | PC.LAC ---
home med Bropenorphine Nalox 4-1 mg sent home with pt.25 film.
== END 2024-12-16 17:32 | disposition home or self-care (01) | DRG 684 ==
LOC: SERX 17:10 → SERHOLD 18:17 → S2NX 12-14 00:07
PROVIDERS: Registered Nurse General Practice; Student in an Organized Health Care Education/Training Program; Admitting Provider Student in an Organized Health Care Education/Training Program; Emergency Provider Emergency Medicine; PCP Family Medicine; Visit Provider Internal Medicine
DX: N17.9 Acute kidney failure, unspecified (principal); K59.09 Other constipation; K21.9 Gastro-esophageal reflux disease without esophagitis; I95.9 Hypotension, unspecified; E78.5 Hyperlipidemia, unspecified; I12.9 Hypertensive chronic kidney disease with stage 1 through stage 4 chronic kidney disease, or unspecified chronic kidney disease; N40.0 Benign prostatic hyperplasia without lower urinary tract symptoms; N18.30 Chronic kidney disease, stage 3 unspecified; F32.A Depression, unspecified; F41.9 Anxiety disorder, unspecified; M54.9 Dorsalgia, unspecified; D63.1 Anemia in chronic kidney disease; G89.29 Other chronic pain; M54.2 Cervicalgia; Z86.74 Personal history of sudden cardiac arrest; N31.9 Neuromuscular dysfunction of bladder, unspecified; Z99.3 Dependence on wheelchair; Z98.1 Arthrodesis status; Z90.5 Acquired absence of kidney; Z79.899 Other long term (current) drug therapy; M48.061 Spinal stenosis, lumbar region without neurogenic claudication
CPT/HCPCS: 36415; 76770; 80053; 80069; 80307; 81001; 82436; 82550; 83615; 83735; 83880; 84133; 84300; 84484; 85025; 85610; 85730; 87077; 87086; 87186; 87400; 87811; 93005; 96360; 99285; J0696; J1643; J3490; J7030; A9270

== ENCOUNTER 2024-12-21 13:16 | Inpatient (IN) | payer MEDICARE, MEDICAID, SELFPAY ==
[2024-12-21] VITALS (8 sets, daily range): BP systolic 69–139; BP diastolic 50–80; PULSE 47–69; RESP 15–20; TEMP 36.4–36.8; O2SAT 96–99; BMI 28.8
--- NOTE | 2024-12-21 13:18 | EKG_ITS ---
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
--- NOTE | 2024-12-21 13:19 | PD.EDAMS ---
Altered Mental Status RME/HPI General Chief Complaint: Syncope / Near Syncope Stated Complaint: AMS Time Seen by Provider: 12/21/24 13:19 Arrival date/time: 12/21/24 13:16 RME / HPI RME / HPI narrative: DR. LAFLEUR MAIN ED EVALUATION: 69 year old male presents to the Emergency Department [facility] with complaint of altered mental status initially on scene. Per EMS, fire department reported the patient was a GCS of 3 and had agonal breathing so patient was bagged. Then, when EMS arrived, the patient improved and GCS of 14. Per EMS, after they stopped bagging, the patient had a vomiting episode of yellow bilious emesis and then woke up and stated he felt better. Per family, patient had similar symptoms in the past when he had an UTI. Blood glucose per EMS was 122. PMHx: Hypotension, on midodrine, cardiopulmonary arrest in 12/2023, HLD, CKD stage III, right nephrostomy, GERD, spinal stenosis s/p surgical correction in 11/2024. Wheelchair-bound Related Data Home Medications ?Medication ?Instructions ?Recorded ?Confirmed gabapentin 400 mg capsule 400 mg PO TID 01/03/24 12/21/24 amitriptyline 10 mg tablet 10 mg PO .qdayhs 12/14/24 12/21/24 atorvastatin 40 mg tablet 40 mg PO QDAY 12/14/24 12/21/24 buprenorphine 4 mg-naloxone 1 mg 1 film buccal BID 12/14/24 12/21/24 sublingual film folic acid 1 mg tablet 1 mg PO QDAY 12/14/24 12/21/24 lidocaine 5 % topical patch 1 patch topical Q24H 12/14/24 12/21/24 midodrine 10 mg tablet 10 mg PO TID 12/14/24 12/21/24 thiamine HCl (vitamin B1) 100 mg 100 mg PO QDAY 12/14/24 12/21/24 tablet Previous Rx's ?Medication ?Instructions ?Recorded tamsulosin 0.4 mg capsule 0.4 mg PO QDAY #30 caps 12/16/24 Allergies Allergy/AdvReac Type Severity Reaction Status Date / Time zolpidem AdvReac Mild MAKES ME Verified 05/28/22 11:03 JOHN Review of Systems Review of Systems Systems Reviewed: All systems reviewed, normal except as documented Past Medical History Past Medical History NEUROLOGIC: Positive Neurological Disorders, Seizures and Peripheral Neuropathy CARDIAC: Positive Cardiac Disorders, Hypercholesterolemia and Hypotension (PN MIDODRINE); Negative Congestive Heart Failure, Edema, Cellulitis or Varicose Veins RESPIRATORY: Negative Chronic Obstructive Pulmonary Disease (COPD), Asthma, Tuberculosis or Sleep Apnea GASTROINTESTINAL: Positive Gall Bladder Disease, Gastroesophageal Reflux Disease and Obesity; Negative Gastrointestinal Disorders, Hepatitis or Colorectal Cancer GENITOURINARY: Positive Genitourinary Disorders, Renal Disease, Kidney Stones and Benign Prostatic Hyperplasia; Negative Dialysis or Prostate Cancer REPRODUCTIVE: Negative Testicular Cancer MUSCULOSKELETAL: Positive Musculoskeletal Disorders, Arthritis and Fractures; Negative Bone Cancer or Carpal Tunnel Syndrome ENT: Negative Cataracts or Blind ENDOCRINE: Negative Endocrine Disorders, Diabetes Mellitus Type 1 or Diabetes Mellitus Type 2 HEMATOLOGIC: Negative Blood Disorders or Sickle Cell Disease PSYCHO/SOCIAL: Positive Psychiatric Problems, Recreational Drug Use, Depression and Anxiety OTHER HISTORY: Positive Shingles, Falls, Human Immunodeficiency Virus (HIV), Chicken Pox and Mumps; Negative Hospitalization, Autoimmune Disease, Down Syndrome, Developmental Delay, Blood Transfusions, Blood Transfusion Reaction, Anesthesia Reactions, Organ Transplant, Chemotherapy, Radiation Therapy, Hyperbaric Therapy, MRSA, VRSA, Vancomycin-Resistant Enterococci, Measles, Cancer, Colorectal Cancer, Lung Cancer, Prostate Cancer or Testicular Cancer Family History FAMILY HISTORY: Positive Family Cardiac Disorders, Family Cancer and Family Surgery; Negative Family Psychiatric Problems, Family Respiratory Disorders, Family Gastrointestinal Problems or Family Anesthesia Reaction Surgical History SURGICAL: Positive Oral Surgery and Nephrectomy; Negative Cardiac Surgery, Pacemaker, Endocrine Surgery, Ear Surgery, Tympanostomy Tube, Eye Surgery, Nose Surgery, Tonsillectomy, Adenoidectomy, Cochlear Implant, Corneal Transplant, Throat Surgery, Abdominal Surgery, Tracheostomy, Gastric Bypass Surgery, Gastrostomy, Bowel Surgery, Transurethral Resection, Joint Replacement, Amputation, Open Reduction Internal Fixation, Arthroscopy, Neurologic Surgery, Brain Shunt, Vasectomy or Organ Transplant Social History SMOKING STATUS: Never smoker SECOND HAND EXPOSURE: No SUBSTANCE USE: marijuana (Once a day) 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 HEENT: Normocephalic, atraumatic; pupils equal, round, reactive to light; EOMI; mucous membranes pink, moist; oropharynx clear NECK: Supple LUNGS: CTABL; no wheezes, no rales, no rhonchi HEART: Regular rate, regular rhythm; normal S1, S2; no murmurs ABDOMEN: there is some abdominal distention; normal BS; soft, no tenderness, no guarding, no rebound; no masses, no organomegaly, no hernia BACK: no CVA tenderness EXTREMITIES: atraumatic; no edema NEUROLOGIC: awake; alert and oriented x4; cranial nerves II-XII grossly intact; no focal sensory or motor deficits PSYCHIATRIC: appropriate mood and affect SKIN: warm, dry, normal color; no rashes Course Quality Measures none Orders Category Date Time Status Patient Condition Routine Admission 12/21/24 22:[address] in Observation Status Routine Admission 12/21/24 21:45 Active Bedside COVID-19 Antigen Test NOW Care 12/21/24 22:17 Active COVID-19 Screening Questionnaire NOW Care 12/21/24 21:47 Active Mr Teacher NOW Care 12/21/24 13:20 Active Cell Plasterer Referral NOW Care 12/22/24 00:35 Active Decision to Admit X1 Care 12/21/24 21:47 Completed EKG (ED ONLY) *Do not use* NOW Care 12/21/24 13:18 Completed IV [Insert IV] NOW Care 12/21/24 13:20 Active Notify provider NEEDED Care 12/21/24 22:44 Active Orthostatic Vitals X1 Care 12/22/24 01:15 Active Consult to Cardiology Routine Cons 12/22/24 13:29 Ordered Consult to Nephrology Routine Cons 12/22/24 11:47 Ordered Diet Renal Diet 12/22/24 Breakfast Active CA echo doppler complete Routine Exams 12/22/24 21:[address] head/brain wo con Stat Exams 12/21/24 14:57 Completed EKG (ED Only) Stat Exams 12/21/24 13:18 Draft B-Type Natriuretic Peptide Stat Lab 12/21/24 13:25 Completed Blood Culture (Lab) Routine Lab 12/21/24 13:25 Results Blood Culture (Lab) Routine Lab 12/22/24 14:05 Received CBC AM DRAW Lab 12/22/24 05:22 Completed CBC AM DRAW Lab 12/23/24 04:40 Completed CBC AM DRAW Lab 12/24/24 05:00 Ordered CBC Stat Lab 12/21/24 13:25 Completed Comprehensive Metabolic Panel AM DRAW Lab 12/22/24 05:22 Completed Comprehensive Metabolic Panel AM DRAW Lab 12/23/24 04:40 Completed Comprehensive Metabolic Panel AM DRAW Lab 12/24/24 05:00 Ordered Comprehensive Metabolic Panel Stat Lab 12/21/24 13:25 Completed Lactate (Lactic Acid) Stat Lab 12/21/24 13:25 Completed Lipase Stat Lab 12/21/24 13:25 Completed MRSA Nasal Screen Stat Lab 12/22/24 00:38 Completed Magnesium AM DRAW Lab 12/22/24 05:22 Completed Magnesium AM DRAW Lab 12/23/24 04:40 Completed Magnesium AM DRAW Lab 12/24/24 05:00 Ordered Magnesium Stat Lab 12/21/24 13:25 Completed Partial Thromboplastin Time Stat Lab 12/21/24 13:25 Completed Phosphorous AM DRAW Lab 12/22/24 05:22 Completed Phosphorous AM DRAW Lab 12/23/24 04:40 Completed Phosphorous AM DRAW Lab 12/24/24 05:00 Ordered Procalcitonin Stat Lab 12/21/24 17:33 Completed Prothrombin Time with INR Stat Lab 12/21/24 13:25 Completed Troponin I Routine Lab 12/21/24 23:22 Completed Troponin I Stat Lab 12/21/24 13:25 Completed Troponin I Stat Lab 12/21/24 17:33 Completed UA, C/S IF [Urinalysis, C/S if Indicated] Stat Lab 12/21/24 13:33 Completed Urine Culture Routine Lab 12/21/24 22:47 Received Acetaminophen Tab [Tylenol Tab] Med 12/21/24 22:44 Active 650 mg PO Q6H PRN Gabapentin Med 12/22/24 00:15 Discontinued 400 mg PO TID Gabapentin [Neurontin] Med 12/22/24 21:00 Active 400 mg PO BID Gabapentin [Neurontin] Med 12/22/24 14:00 Discontinued 400 mg PO TID Heparin Inj Med 12/22/24 06:00 Active 5,000 unit SC Q8HR Midodrine [Proamatine] Med 12/22/24 14:00 Active 10 mg PO TID Ondansetron Inj [Zofran Inj] Med 12/21/24 22:44 Active 4 mg IV Q6H PRN Pantoprazole [Protonix] Med 12/22/24 09:00 Active 40 mg PO QDAY Patient's Own Controlled Med [Patient's Own Controlled Med 12/22/24 21:00 Active Medication] 1 ea Pre-Mixed Bottle [Pre-mixed Bottle] 1 btl SL BID Patient's Own Controlled Med [Patient's Own Controlled Med 12/22/24 10:00 Discontinued Medication] 1 ea Pre-Mixed Bottle [Pre-mixed Bottle] 1 btl SL X1 Senna [Senokot] Med 12/21/24 22:44 Active 1 tab PO QDAY PRN Sodium Chloride 0.9% 1000 ml [Ns] 1,000 ml Med 12/21/24 21:43 Active IV 125 mls/hr Sodium Chloride 0.9% 1000 ml [Ns] 1,000 ml Med 12/21/24 13:24 Discontinued IV 999 mls/hr Tamsulosin HCl [Flomax] Med 12/22/24 09:00 Discontinued 0.4 mg PO QDAY Vancomycin Pharmacy to Dose Med 12/22/24 12:15 Active 1 each IV QDAY PRN Vancomycin/Ns 1 gm Ivpb 200 ml Med 12/22/24 12:15 Discontinued IV X1 buprenorphine-naloxone Med 12/22/24 00:15 Discontinued 1 film PO X1 ONE cefTRIAXone/D5w 1gm IV premix [Rocephin/D5w 1gm IV Med 12/21/24 22:30 Discontinued premix] 1 g in 50 ml IV X1 cefTRIAXone/D5w 1gm IV premix [Rocephin/D5w 1gm IV Med 12/22/24 21:00 Discontinued premix] 1 gm in 50 ml IV HS cefTRIAXone/D5w 2gm [Rocephin/d5w 2gm] Med 12/22/24 12:15 Active 2 gm in 50 ml IV QDAY Code Status Routine Oth 12/21/24 22:44 Ordered Oxygen Delivery PRN RT 12/21/24 22:44 Active Vital Signs Vital signs: Vital Signs Temperature 97.9 F 12/21/24 13:18 Pulse Rate 67 12/21/24 13:18 Respiratory Rate 20 12/21/24 13:18 Blood Pressure 69/50 L 12/21/24 13:18 Pulse Oximetry (%) 97 12/21/24 13:18 Oxygen Delivery Method Room Air 12/21/24 13:18 Altered Mental Status MDM Narrative MDM Narrative:: I, Connie Juancarlos, am scribing for and in the presence of Dr. Lafleur. Patient data External records reviewed:: EMS form Clinical information provided by:: patient, EMS and family Social determinants that could affect healthcare access:: none Patient has the following chronic illnesses:: Hypotension, on MIDODRINE, cardiopulmonary arrest in 12/2023, HLD, CKD stage III, right sided nephrostomy, GERD, spinal stenosis s/p surgical correction in 11/2024. Wheelchair-bound, unknown reason. How is presenting disease/condition affected by chronic disease/condition?: exacerbated by Evaluation data The following diagnostics were reviewed and interpreted by me:: lab results, radiology exam(s) and EKG tracing(s) (EKG#1: EKG at 1320 hours. Interpreted by me: sinus rhythm, rate 64, T wave inversion in leads 2 and 3) Lab and/or radiology exams considered but not ordered:: none Interpretation Summary: Procedure(s): CT head/brain wo con Accession Number(s): [id number] cc: Yury Russell MD; Sincere Woods MD; Naomy Lafleur MD~ Examination: CT brain head without contrast. 2-D sagittal coronal reconstructions Date and time of exam:December 21, 2024 at 1551 hrs. Indications: Syncopal episode today CTDI: vol (mGy):15.9 DLP: (mGycm):1053 Technique: Multiple CT axial sections of the brain have been obtained, 5 mm slice thickness. Contrast has not been administered. 2-D sagittal, coronal reconstructions have been obtained Low dose protocols were performed. One or more of the following dose reduction techniques were used; automated exposure control, adjustment of the mA and/or KV according to patient size, use of iterative reconstruction technique. Findings: No significant ventricular enlargement. Intra-axial or extra-axial hemorrhage density is not seen. No mass effect or midline shift Basal cisterns are not remarkable. Fourth ventricle is midline. Cranial vault intact. Impression: Negative for acute hemorrhage, mass effect or midline shift Advise clinical correlation follow-up accordingly Dictated By: Sincere Woods MD Medications / Prescriptions Medications or Prescriptions considered but not ordered:: none Medication administrations:: Medication Administration History Acetaminophen (Acetaminophen 325 Mg Tablet) 650 mg PO Q6H PRN PRN Reason: Fever >100.3 or pain 1-3 Stop: 01/20/25 22:43 Buprenorphine- (Naloxone 4-1 Mg Film) 0 ea SL BID [facility] Stop: 01/21/25 20:59 Last Admin: 12/22/24 21:16 Dose: 1 film Documented By: VIPIN Gabapentin 100 mg/ Gabapentin (300 mg) 400 mg PO BID VIJAY Stop: 01/21/25 20:59 Last Admin: 12/22/24 21:15 Dose: 400 mg Documented By: VIPIN Heparin Sodium (Porcine) (Heparin Sod Inj 5000 Unit/Ml Vial) 5,000 unit SC Q8HR VIJAY Stop: 01/05/25 05:59 Last Admin: 12/23/24 05:19 Dose: 5,000 unit Documented By: VIPIN Co-signed By: Admin: 12/22/24 21:17 Dose: 5,000 unit Documented By: VIPIN Co-signed By: ALEXANDRA Admin: 12/22/24 13:25 Dose: 5,000 unit Documented By: MELISSA Co-signed By: GORDON Admin: 12/22/24 05:26 Dose: 5,000 unit Documented By: ROSA Co-signed By: ZACK Sodium Chloride (Ns) 1,000 mls @ 125 mls/hr IV .Q8H [facility] Stop: 01/20/25 21:42 Last Admin: 12/22/24 23:33 Dose: 125 mls/hr Documented By: Infusion: 12/22/24 21:31 Dose: Infused Documented By: Admin: 12/22/24 13:31 Dose: 125 mls/hr Documented By: [email or web address] Infusion: 12/22/24 13:26 Dose: Infused Documented By: [email or web address] Admin: 12/22/24 05:26 Dose: 125 mls/hr Documented By: Infusion: 12/22/24 05:26 Dose: Infused Documented By: Admin: 12/21/24 22:38 Dose: 125 mls/hr Documented By: EF Ceftriaxone Sodium/Dextrose (Rocephin/D5w 2gm) 2 gm in 50 mls @ 100 mls/hr IV QDAY [facility] Stop: 12/29/24 12:01 Last Admin: 12/22/24 13:24 Dose: 100 mls/hr Documented By: [email or web address] Midodrine (Midodrine 5 Mg Tablet) 10 mg PO TID VIJAY Stop: 01/21/25 13:59 Last Admin: 12/23/24 05:19 Dose: Not Given Documented By: VIPIN Non-Admin Reason: Vital Signs Admin: 12/22/24 21:15 Dose: 10 mg Documented By: Admin: 12/22/24 13:26 Dose: 10 mg Documented By: MELISSA Ondansetron HCl (Ondansetron Inj 2 Mg/Ml Inj 2 Ml) 4 mg IV Q6H PRN; Protocol PRN Reason: NAUSEA OR VOMITING Stop: 01/20/25 22:43 Last Admin: 12/22/24 17:25 Dose: 4 mg Documented By: CHARLETTE Pantoprazole Sodium (Pantoprazole 40 Mg Tablet) 40 mg PO QDAY VIJAY Stop: 01/21/25 08:59 Last Admin: 12/22/24 08:13 Dose: 40 mg Documented By: CHARLETTE Pharmacy Consult (Vancomycin Pharmacy To Dose 1 Each Each) 1 each IV QDAY PRN PRN Reason: CONSULT Stop: 01/21/25 12:14 Sennosides (Senna Tablet) 1 tab PO QDAY PRN; Protocol PRN Reason: constipation Stop: 01/20/25 22:43 Last Admin: 12/22/24 08:27 Dose: 1 tab Documented By: CHARLETTE Discontinued Medications Buprenorphine- (Naloxone 4-1 Mg Film) 0 ea SL X1 ONE Stop: 12/22/24 10:01 Last Admin: 12/22/24 10:04 Dose: 1 film Documented By: CHARLETTE Gabapentin (Gabapentin 100 Mg Capsule) 400 mg PO TID [facility] Stop: 01/21/25 00:14 Last Admin: 12/22/24 05:26 Dose: 400 mg Documented By: Admin: 12/22/24 00:41 Dose: 400 mg Documented By: ROSA Gabapentin 100 mg/ Gabapentin (300 mg) 400 mg PO TID [facility] Stop: 01/21/25 00:14 Last Admin: 12/22/24 13:26 Dose: 400 mg Documented By: MELISSA Sodium Chloride (Ns) 1,000 mls @ 999 mls/hr IV .Q1H1M ONE Stop: 12/21/24 14:24 Last Infusion: 12/21/24 15:00 Dose: Infused Documented By: Admin: 12/21/24 13:25 Dose: 999 mls/hr Documented By: Ceftriaxone Sodium/Dextrose (Rocephin/D5w 1gm Iv Premix) 1 gm in 50 mls @ 100 mls/hr IV HS VIJAY Stop: 12/29/24 20:59 Ceftriaxone Sodium/Dextrose (Rocephin/D5w 1gm Iv Premix) 1 g in 50 mls @ 100 mls/hr IV X1 ONE Stop: 12/21/24 22:59 Last Admin: 12/21/24 22:38 Dose: 100 mls/hr Documented By: MATT Vancomycin/Sodium Chloride (Vancomycin/Ns 1 Gm Ivpb) 200 mls @ 120 mls/hr IV X1 ONE Stop: 12/22/24 13:54 Last Admin: 12/22/24 13:25 Dose: 120 mls/hr Documented By: MELISSA Comments: pharmacy brought it now Home Medication- Please Speak With Patient Caregiver To Have Rx Brought To [facility] 1 film PO X1 ONE Stop: 12/22/24 00:16 Last Admin: 12/22/24 08:23 Dose: Not Given Documented By: CHARLETTE Non-Admin Reason: previous shift not given bcoz doc ask to hold Tamsulosin HCl (Tamsulosin Hcl 0.4 Mg Capsule) 0.4 mg PO QDAY VIJAY Stop: 01/21/25 08:59 Last Admin: 12/22/24 09:13 Dose: 0.4 mg Documented By: CHARLETTE see above Consultations Consultation(s) initiated? (list below): No Diagnosis Differential diagnosis altered mental status: altered mental status, sepsis and other (UTI) Most likely diagnosis given after review of the tests above:: No official diagnoses at this time, still pending diagnostic tests. Patient signout to the fast food shift supervisor provider. Admission Indicated Admission indicated?: not indicated Explain why admission is indicated or not indicated:: No final disposition plan at this time, still pending diagnostic tests. Patient signout to the fast food shift supervisor provider. Admission Request Was there a request for admission?: No Disposition Plan Disposition Plan: other (specify) (Patient signout to the fast food shift supervisor provider, pending repeat troponin and final disposition. ) Discharge Plan Plan Patient Disposition: Admit Acute Care w/in Hospital Problem List Clinical Impression: Syncope
--- NOTE | 2024-12-21 13:20 | PC.NURSE ---
PT CAME IN VIA EMS FOR ALTERED AND SYNCOPAL EPISODE. PER EMS PT HAD SYNCOPAL EPISODE AND WHEN THEY ARRIVED PT WAS GCS 3 WITH AGONAL BREATHING. EMS BAGGED PT VIA BVM UNTIL PT WAS AWAKE. PT PRESENTED TO ED ALERT BUT SLIGHTLY CONFUSED. PT DENIED PAIN OR DISCOMFORT, PT PALE. PT PLACED ON CC MONITOR. DR GILL AT BEDSIDE
[2024-12-21] MEDS: SODIUM CHLORIDE 0.9% 1000 ML 1,000 ML 999 ML IV (13:25)
[2024-12-21 13:35] LABS: Lactate (Lactic Acid) 1.8 mMol/L (0.4-2.0)
[2024-12-21 13:36] LABS: Basophils % (Auto) 1 % (0-2.5); Eosinophils # (Auto) 0.5 Thou/mm3 (0.0-0.5); Eosinophils % (Auto) 10 % (0-10); Hematocrit 36.3 % (41.0-53.0); Hemoglobin 11.9 g/dL (13.5-16.0); Immature Granulocytes % (Auto) 1 % (0-0); Immature Granulocytes Auto 0.03 Thou/mm3 (0.00-0.00); Lymphocytes # (Auto) 1.5 Thou/mm3 (1.0-4.8); Lymphocytes % (Auto) 28 % (10-50); Mean Corpuscular HGB Conc 32.8 g/dl (31.0-37.0); Mean Corpuscular Hemoglobin 29.1 pg (25.0-35.0); Mean Corpuscular Volume 89 fL (80-100); Monocytes # (Auto) 0.5 Thou/mm3 (0.0-0.8); Monocytes % (Auto) 9 % (0-12); Neutrophils # (Auto) 2.8 Thou/mm3 (1.8-7.7); Neutrophils % (Auto) 52 % (37-80); Nucleated Red Blood Cell % 0 /100 WBC (0); Platelet Count 182 Thou/mm3 (140-440); RDW Standard Deviation 42.8 fL (35.1-43.9); Red Blood Count 4.09 Miln/mm3 (4.50-5.90); White Blood Count 5.4 Thou/mm3 (3.8-10.6)
[2024-12-21 13:41] LABS: Collection Type, Urine Clean Catch
[2024-12-21 13:45] LABS: Bacteria,Urine Rare; Bilirubin,Urine Negative (Negative); Blood,Urine Negative (Negative); Clarity,Urine Clear (Clear/Hazy); Color,Urine Lt-Yellow (Lt Yel-Yel); Culture Indicated,Urine Not Indicated; Glucose, Urine Negative (Negative); Ketones,Urine Negative (Negative); Leukocyte Esterase,Urine Negative (Negative); Nitrite,Urine Negative (Negative); Protein,Urine Trace (Neg - Trace); RBC,Urine 1 /hpf (0-3); Squamous Epithelial Cell,Urine 2 /hpf (0-5); Urobilinogen,Urine Negative mg/dL (0.0-1.0); WBC,Urine 8 /hpf (0-5)
[2024-12-21 13:52] LABS: INR 1.1 (0.9-1.3); Partial Thromboplastin Time 24.4 Seconds (22.0-36.0); Prothrombin Time 12.1 Seconds (9.0-12.2)
[2024-12-21 13:56] LABS: B-Type Natriuretic Peptide 73 pg/mL (0-100)
[2024-12-21 14:07] LABS: Alanine Aminotransferase 31 U/L (10-49); Albumin, Serum 3.8 gm/dL (3.4-4.8); Albumin/Globulin Ratio 1.6 (1.2-2.2); Alkaline Phosphatase 90 U/L (46-116); Anion Gap 9 (7-16); Aspartate Amino Transferase 37 U/L (0-34); BUN/Creatinine Ratio 10 Ratio (12-20); Bilirubin,Total 0.6 mg/dL (0.3-1.2); Blood Urea Nitrogen 29 mg/dL (9-23); Calcium 9.1 mg/dL (8.3-10.6); Calcium (Corrected) 9.3 mg/dL (8.5-10.1); Carbon Dioxide 21.7 mMol/L (20.0-31.0); Chloride 106 mMol/L (98-107); Creatinine (Component) 2.9 mg/dL (0.6-1.3); Estimated Creatinine Clearance 25.7 mL/min (>60); Globulin 2.4 gm/dL (2.3-3.5); Glucose 115 mg/dL (74-106); Lipase 35 U/L (12-53); Magnesium 1.8 mg/dL (1.6-2.6); Osmolality,Calculated 280 (275-295); Potassium 4.4 mMol/L (3.4-5.1); Sodium 137 mMol/L (136-145); Total Protein 6.2 gm/dL (5.7-8.2); eGFR 23 See Note
[2024-12-21 14:11] LABS: Troponin I 0.056 ng/mL (0.0-0.045)
--- NOTE | 2024-12-21 14:57 | XR_ITS ---
Examination: CT brain head without contrast. 2-D sagittal coronal reconstructions Date and time of exam:December 21, 2024 at 1551 hrs. Indications: Syncopal episode today CTDI: vol (mGy):15.9 DLP: (mGycm):1053 Technique: Multiple CT axial sections of the brain have been obtained, 5 mm slice thickness. Contrast has not been administered. 2-D sagittal, coronal reconstructions have been obtained Low dose protocols were performed. One or more of the following dose reduction techniques were used; automated exposure control, adjustment of the mA and/or KV according to patient size, use of iterative reconstruction technique. Findings: No significant ventricular enlargement. Intra-axial or extra-axial hemorrhage density is not seen. No mass effect or midline shift Basal cisterns are not remarkable. Fourth ventricle is midline. Cranial vault intact. Impression: Negative for acute hemorrhage, mass effect or midline shift Advise clinical correlation follow-up accordingly
--- NOTE | 2024-12-21 18:24 | PD.EDADDENDU ---
Emergency Room Addendum Addendum Narrative: I took over the care from Dr. GILL at 6 PM on 12/21/2024, see her notes for complete H&P and ED course. I reviewed all diagnostic test results. Diagnoses include: Syncope REN UTI I discussed the case with our hospitalist. About the presentation and exam and diagnostics and treatments here. And need of further care in the hospital. Will accept the patient. Enrique Mccray MD
[2024-12-21 18:38] LABS: Troponin I 0.059 ng/mL (0.0-0.045)
--- NOTE | 2024-12-21 21:41 | EVENTNT_ITS ---
Documentation for date of: 12/21/24 Event Note Event Note: A 69-year-old male presented to the ER with the chief complaint of altered mental status. The patient endorsed feeling weak for the past few days and experiencing spasms, headache, and back pain, along with intermittent visual disturbances described as ?fading out.? He also described episodes of near-syncope and lightheadedness, particularly during transfers from his wheelchair. He reports continued weakness, nausea, and dysuria. Family noted similar symptoms in the past during UTIs. He denied fever, cough, chest pain, dyspnea, or diarrhea. He recalled a fall earlier today during such a transfer, possibly associated with transient loss of consciousness. The found him on the floor and called 911. Per EMS, the patient was initially found unresponsive with agonal breathing and a GCS of 3, requiring [id number] ventilation by the fire department. Upon EMS arrival, he improved to a GCS of 14. Shortly after cessation of bagging, the patient vomited yellow bilious emesis and reported feeling better. The patient has a history of hypotension (on Midodrine), cardiopulmonary arrest in 12/2023, HLD, CKD stage III, GERD, chronic neck/back pain secondary to spinal stenosis s/p surgical repair in 2011, BPH, chronic constipation, depression/anxiety, and normocytic anemia. Surgical history includes right nephrectomy in 2019 for pyelonephrosis. Social history includes no tobacco, alcohol, or recreational drug use. He is wheelchair-bound but able to self- transfer and lives with his . He was recently hospitalized last week for a UTI and reports persistent symptoms since discharge. In the ER, vital signs recorded as temp 97.9 F, HR 67 bpm, RR 20, and BP 69/50 mmHg. Labs revealed WBC 5.4, Hgb 11.9, PLT 182, Na 137, K 4.4, BUN 29, creatinine 2.9 (increased from 1.9 one week ago), glucose 115, troponin trended from 0.056 to 0.059. UA showed WBC 8. Head CT was negative for acute hemorrhage, mass effect, or midline shift. EKG showed sinus rhythm with T wave inversions in the lateral leads. Due to hypotension, REN, and persistent weakness, the patient is being admitted for observation. #Syncope Assessment: Transient loss of consciousness with agonal breathing, hypotension (BP 69/50), and improvement post-BVM ventilation; unwitnessed fall; lightheadedness and near-syncope with transfers; likely multifactorial?orthostatic component (on Midodrine), possible infection-related vasodilation, no clear arrhythmic etiology; T wave inversions noted on EKG. Alert and awake now. Plan: - Continue BP monitoring - Monitor telemetry for arrhythmias - Echocardiogram to evaluate cardiac function - Encourage gradual transfers with assistance - Fall precautions in place - One more troponin AM #Acute on CKD Assessment: Acute kidney injury (Cr 2.9 from baseline 1.9) in the setting of hypotension, nausea, possible volume depletion; history of CKD stage III, solitary kidney s/p right nephrectomy. Plan: - IV fluid resuscitation - Daily labs: creatinine, BUN, electrolytes - Avoid nephrotoxic medications - Review and adjust home medications per renal function - Nephrology consult if worsening or lack of improvement #UTI Assessment: Persistent dysuria, weakness, and altered mental status; UA with pyuria (WBC 8); recent hospitalization for UTI with similar symptoms. Plan: - Initiate empirical IV antibiotics - Monitor for clinical signs of urosepsis - Adjust antibiotics per culture results - Maintain adequate hydration
--- NOTE | 2024-12-21 22:28 | PD.RESHP ---
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 Patient appears to be poor historian sometimes regarding his previous medical history. Part of it was recovered through chart review. Patient himself reports that he was transferring himself from the wheelchair to the bed and felt weak and lost consciousness, he remembers waking up in the ambulance. Spoke to his on the phone, according to her he fell on the floor and hit his head. His reports that in the previous days and weeks he has been having weakness. She reports that he has been having similar symptoms when he had UTI previously. Patient denies fever, chills, nausea, vomiting. He reports that he is generally weak and and sees 'white' sometimes. He denies dysuria, diarrhea. He reports burning sensation in the lower part of the chest and epigastrium, that improves with breathing in. According to the EMS he was found with agonal breathing and GCS of 3, was ventilated with Ambu bag and upon arrival had GCS of 14. He also vomited with yellow vomitus. ED course: Vitals were blood pressure 69/50, heart rate 67, afebrile, saturating well on room air. Labs were remarkable for WBC 5.4 hemoglobin 11.9, hematocrit 36.3, platelets 182. Sodium 137, potassium 4.4, BUN 29, creatinine 2.9 (previously 1.9 on 12/16/24), EGFR 23, glucose 115. Troponin I initially was 0.056, minimally up trended to 0.059. UA showed WBC count of 8. Head CT was negative for acute fracture bleeding or signs of acute stroke, EKG showed sinus rhythm. Patient was admitted for observation due to syncope episode and REN on CKD. Social history: Denies smoking cigarettes, denies recent alcohol use, reports marijuana edible intake (last one was 2 days ago). Surgical history: Status post nephrectomy, spinal stenosis s/p surgical repair 2011 Review of Systems Review of Systems Systems Reviewed: All systems reviewed, normal except as documented Exam Vital Signs Temp Pulse Resp BP Pulse Ox O2 Del Method 98.3 F 59 L 15 127/74 98 Room Air 12/21/24 18:00 12/21/24 19:25 12/21/24 18:00 12/21/24 18:00 12/21/24 18:00 12/21/24 18:00 Narrative Exam Physical Exam General: Awake and in no acute distress. Conversational and non-toxic appearing. HEENT: Normocephalic, atraumatic, mucous membranes moist. Heart: Regular rate and rhythm, no murmurs. Lungs: Clear to auscultation with no wheezing or crackles. Abdomen: Soft, nondistended, nontender, positive bowel sounds. ?No guarding or rebound tenderness. Neurologic: Alert and oriented x3, no gross neurological deficit, and patient able to move all 4 extremities. Extremities: No edema. Skin: No rash or ecchymoses. Results: Labs 12/21/24 13:25 12/21/24 13:25 Labs: Short CBC 12/21/24 Range/Units 13:25 WBC 5.4 (3.8-10.6) Thou/mm3 Hgb 11.9 L (13.5-16.0) g/dL Hct 36.3 L (41.0-53.0) % Plt Count 182 D (140-440) Thou/mm3 BMP 12/21/24 13:25 Sodium 137 Potassium 4.4 Chloride 106 Carbon Dioxide 21.7 BUN 29 H Creatinine 2.9 H D Glucose 115 H Calcium 9.1 Cardiac Enzymes 12/21/24 12/21/24 Range/Units 13:25 17:33 Troponin I 0.056 H* 0.059 H* (0.0-0.045) ng/mL Liver Function 12/21/24 Range/Units 13:25 Total Bilirubin 0.6 (0.3-1.2) mg/dL AST 37 H (0-34) U/L ALT 31 (10-49) U/L Alkaline Phosphatase 90 (46-116) U/L Albumin 3.8 (3.4-4.8) gm/dL Urine 12/21/24 Range/Units 13:33 Urine Color Lt-Yellow (Lt Yel-Yel) Urine Clarity Clear (Clear/Hazy) Urine pH 6.0 (5.0-7.0) Ur Specific [place] 1.010 (1.001-1.035) Urine Protein Trace (Neg - Trace) Urine Glucose (UA) Negative (Negative) Quality Measures Quality Measures VTE prophylaxis Advance care planning discussed with:: patient Medications Home Medications and Allergies Home Medications ?Medication ?Instructions ?Recorded ?Confirmed ?Type gabapentin 400 mg capsule 400 mg PO TID 01/03/24 12/21/24 History amitriptyline 10 mg tablet 10 mg PO .qdayhs 12/14/24 12/21/24 History atorvastatin 40 mg tablet 40 mg PO QDAY 12/14/24 12/21/24 History buprenorphine 4 mg-naloxone 1 mg 1 film buccal BID 12/14/24 12/21/24 History sublingual film folic acid 1 mg tablet 1 mg PO QDAY 12/14/24 12/21/24 History lidocaine 5 % topical patch 1 patch topical Q24H 12/14/24 12/21/24 History midodrine 10 mg tablet 10 mg PO TID 12/14/24 12/21/24 History thiamine HCl (vitamin B1) 100 mg 100 mg PO QDAY 12/14/24 12/21/24 History tablet Allergies Allergy/AdvReac Type Severity Reaction Status Date / Time zolpidem AdvReac Mild MAKES ME Verified 05/28/22 11:03 CRAZY Visit Medications Sodium Chloride (Ns) 1,000 mls @ 125 mls/hr IV .Q8H VIJAY Stop: 01/20/25 21:42 Ceftriaxone Sodium/Dextrose (Rocephin/D5w 1gm Iv Premix) 50 mls @ 100 mls/hr IV QDAY VIJAY Stop: 12/28/24 21:43 Discontinued Medications Sodium Chloride (Ns) 1,000 mls @ 999 mls/hr IV .Q1H1M ONE Stop: 12/21/24 14:24 Last Infusion: 12/21/24 15:00 Dose: Infused Assessment & Plan Plan The patient is a 69-year-old male with previous medical history of hypertension, hyperlipidemia, CKD stage III, status post right-sided nephrectomy, status postcardiopulmonary arrest/2023, GERD, chronic neck/back pain, BPH, chronic constipation, depression/anxiety, normocytic anemia who was brought to the ED by the ambulance on 12/21/2024 due to altered mental status. Patient was admitted for observation due to syncope episode and REN on CKD. #Syncope Patient had a episode of syncope when moving from wheelchair to bed. Ddx: orthostatic hypotension vs arrhythmia vs acute infection Plan: - Telemetry - Echo ordered - Repeat Troponin I, will stop trending if peaked - Lactate, procalcitonin levels unremarkable - Orthostastic vitals - Fall precautions #REN on CKD Creatinine 2.9 (previously 1.9 on 12/16/24), EGFR 23, glucose 115. Plan: - Daily CMP - IV fluids - Avoid nephrotoxic agents - Consider nephrology consult if deemed necessary - Replete electrolytes as necessary #Possible UTI #History of BPH According to the , patient had similar symptoms when he had UTI. UA showed WBC of 8. Patient denies dysuria. Plan: - Urine cultures - Empiric ceftriaxone 12/21/2024-current #History of GERD Patient reports epigastric burning. Plan: - Pantoprazole 40 mg qday #Chronic backpain Plan: - Resumed home gabapentin - Home buprenorphine-naloxone x1, will cautiously titrate due to syncope Health maintenance: FEN: renal diet DVT prophylaxis: heparin sc GI prophylaxis: pantoprazole Dispo: telemetry CODE STATUS: Full code Plan of care discussed with attending Dr. Hatch. Mony Rubi MD, PGY 1. Attending Provider Attestation/Addendum Pt was evaluated and plan formulated together with the housestaff team. I have reviewed the residents note above and agree with most of its content. Please refer to the residents note for additional details.
[2024-12-21] MEDS: cefTRIAXone/D5w 1gm IV premix 1 G/50 ML BAG IV (22:38)
[2024-12-21] MEDS: SODIUM CHLORIDE 0.9% 1000 ML 1,000 ML 125 ML IV (22:38)
[2024-12-21 23:06] LABS: Procalcitonin 0.17 ng/ml (0.0-0.49)
[2024-12-22] VITALS (11 sets, daily range): BP systolic 98–135; BP diastolic 59–85; PULSE 59–103; RESP 16–98; TEMP 36.2–37.1; O2SAT 96–98
[2024-12-22] MEDS: GABAPENTIN 100 MG CAPSULE 400 MG PO ×2 (00:41→05:26)
[2024-12-22] MEDS: SODIUM CHLORIDE 0.9% 1000 ML 1,000 ML 125 ML IV ×3 (05:26→23:33)
[2024-12-22] MEDS: HEPARIN SOD INJ 5000 UNIT/ML VIAL SC ×3 (05:26→21:17)
[2024-12-22 06:31] LABS: Basophils % (Auto) 1 % (0-2.5); Eosinophils # (Auto) 0.5 Thou/mm3 (0.0-0.5); Eosinophils % (Auto) 9 % (0-10); Hemoglobin 10.6 g/dL (13.5-16.0); Immature Granulocytes % (Auto) 0 % (0-0); Immature Granulocytes Auto 0.02 Thou/mm3 (0.00-0.00); Lymphocytes # (Auto) 1.1 Thou/mm3 (1.0-4.8); Lymphocytes % (Auto) 21 % (10-50); Mean Corpuscular HGB Conc 33.1 g/dl (31.0-37.0); Mean Corpuscular Volume 87 fL (80-100); Monocytes # (Auto) 0.6 Thou/mm3 (0.0-0.8); Monocytes % (Auto) 11 % (0-12); Neutrophils % (Auto) 58 % (37-80); Nucleated Red Blood Cell % 0 /100 WBC (0); Platelet Count 151 Thou/mm3 (140-440); RDW Standard Deviation 42.4 fL (35.1-43.9); Red Blood Count 3.66 Miln/mm3 (4.50-5.90); White Blood Count 5.2 Thou/mm3 (3.8-10.6)
[2024-12-22 06:50] LABS: Alanine Aminotransferase 24 U/L (10-49); Albumin, Serum 3.4 gm/dL (3.4-4.8); Albumin/Globulin Ratio 1.6 (1.2-2.2); Alkaline Phosphatase 81 U/L (46-116); Anion Gap 9 (7-16); Aspartate Amino Transferase 27 U/L (0-34); BUN/Creatinine Ratio 12 Ratio (12-20); Bilirubin,Total 0.4 mg/dL (0.3-1.2); Blood Urea Nitrogen 29 mg/dL (9-23); Calcium 8.5 mg/dL (8.3-10.6); Chloride 108 mMol/L (98-107); Creatinine (Component) 2.5 mg/dL (0.6-1.3); Estimated Creatinine Clearance 29.8 mL/min (>60); Globulin 2.1 gm/dL (2.3-3.5); Glucose 94 mg/dL (74-106); Magnesium 1.7 mg/dL (1.6-2.6); Osmolality,Calculated 281 (275-295); Phosphorous 2.4 mg/dL (2.4-5.1); Potassium 3.9 mMol/L (3.4-5.1); Sodium 138 mMol/L (136-145); Total Protein 5.5 gm/dL (5.7-8.2); eGFR 27 See Note
[2024-12-22] MEDS: PANTOPRAZOLE 40 MG TABLET PO (08:13)
[2024-12-22] MEDS: SENNA TABLET 1 TAB PO (08:27)
[2024-12-22] MEDS: TAMSULOSIN HCL 0.4 MG CAPSULE PO (09:13)
--- NOTE | 2024-12-22 11:55 | PD.RESCONSUL ---
HPI Data of Consult Consult date: 12/22/24 Requesting Physician: Tosin Ford MD Admitting Provider: Alejandro Hatch MD Attending Provider: Tosin Ford MD Primary Care Provider: Yury Russell MD Consult Narrative Reason for consult: REN History of present illness: Mr Tang is a 69-year-old male with previous medical history of hypotension on midodrine, hyperlipidemia, CKD stage III, status post right-sided nephrectomy, status postcardiopulmonary arrest/2023, GERD, chronic neck/back pain, BPH, chronic constipation, depression/anxiety, normocytic anemia, that presented last evening after an episode of loss of consciousness. Patient states that that he was transferring from the bathroom to the bed when he lost consciousness. He did not experience any precipitating factors such as palpitations, tunnel vision, diaphoresis, dizziness, chest pain, sob or blurry vision. Patient also denies any fevers, cough, burning in urine, diarrhea or constipation. He denies any loss of continence, shaking or tongue biting. Patient states that he has been urinating a lot since previous discharge and he states that he was doing fine prior to the episode. He has been taking flomax. In the ED CT scan of the head was negative for any pathology. Patient was initially hypotensive on presentation and now his BP has been stabilized in 120s/80s after 2.5 L of fluid Creatinine was 2.9 on presentation and improved to 2.5 this morning Electrolytes are grossly within normal limits cc:: cc: Tosin Ford MD Review of Systems Review of Systems Systems Reviewed: All systems reviewed, normal except as documented Exam Vital Signs Temp Pulse Resp BP Pulse Ox O2 Del Method 97.8 F 78 18 135/71 H 98 Room Air 12/22/24 08:00 12/22/24 09:57 12/22/24 09:57 12/22/24 08:00 12/22/24 08:00 12/22/24 08:00 Narrative Exam Constitutional: Well nourished and in no acute distress CVS: RRR, S1 and S2 present, no murmurs, rubs or gallops . RESP: CTAB, no SOB, no rales, rhonchi or wheezing. No respiratory Distress GI: Normal BS, Nontender/Nondistended. MSK: Full range of motion, No trauma or deformities or masses. Skin: Warm to touch, Dry. No rashes or lesions. No hematomas Neuro: computer typesetter II-XII grossly intact. Sensation grossly intact. Psych: (AAO) x3 . Appropriate mood and affect. Results Labs 12/23/24 04:40 12/23/24 04:40 Labs: Short CBC 12/21/24 12/22/24 Range/Units 13:25 05:22 WBC 5.4 5.2 (3.8-10.6) Thou/mm3 Hgb 11.9 L 10.6 L (13.5-16.0) g/dL Hct 36.3 L 32.0 L (41.0-53.0) % Plt Count 182 D 151 D (140-440) Thou/mm3 BMP 12/21/24 12/22/24 13:25 05:22 Sodium 137 138 Potassium 4.4 3.9 D Chloride 106 108 H Carbon Dioxide 21.7 21.0 BUN 29 H 29 H Creatinine 2.9 H D 2.5 H Glucose 115 H 94 Calcium 9.1 8.5 Cardiac Enzymes 12/21/24 12/21/24 12/21/24 Range/Units 13:25 17:33 23:22 Troponin I 0.056 H* 0.059 H* 0.060 H* (0.0-0.045) ng/mL Liver Function 12/21/24 12/22/24 Range/Units 13:25 05:22 Total Bilirubin 0.6 0.4 (0.3-1.2) mg/dL AST 37 H 27 (0-34) U/L ALT 31 24 (10-49) U/L Alkaline Phosphatase 90 81 (46-116) U/L Albumin 3.8 3.4 (3.4-4.8) gm/dL Urine 12/21/24 Range/Units 13:33 Urine Color Lt-Yellow (Lt Yel-Yel) Urine Clarity Clear (Clear/Hazy) Urine pH 6.0 (5.0-7.0) Ur Specific [place] 1.010 (1.001-1.035) Urine Protein Trace (Neg - Trace) Urine Glucose (UA) Negative (Negative) Quality Measures Quality Measures VTE prophylaxis Advance care planning discussed with:: patient Medications Home Medications and Allergies Home Medications ?Medication ?Instructions ?Recorded ?Confirmed ?Type gabapentin 400 mg capsule 400 mg PO TID 01/03/24 12/21/24 History amitriptyline 10 mg tablet 10 mg PO .qdayhs 12/14/24 12/21/24 History atorvastatin 40 mg tablet 40 mg PO QDAY 12/14/24 12/21/24 History buprenorphine 4 mg-naloxone 1 mg 1 film buccal BID 12/14/24 12/21/24 History sublingual film folic acid 1 mg tablet 1 mg PO QDAY 12/14/24 12/21/24 History lidocaine 5 % topical patch 1 patch topical Q24H 12/14/24 12/21/24 History midodrine 10 mg tablet 10 mg PO TID 12/14/24 12/21/24 History thiamine HCl (vitamin B1) 100 mg 100 mg PO QDAY 12/14/24 12/21/24 History tablet Allergies Allergy/AdvReac Type Severity Reaction Status Date / Time zolpidem AdvReac Mild MAKES ME Verified 05/28/22 11:03 CRAZY Visit Medications Acetaminophen (Acetaminophen 325 Mg Tablet) 650 mg PO Q6H PRN PRN Reason: Fever >100.3 or pain 1-3 Stop: 01/20/25 22:43 Buprenorphine- (Naloxone 4-1 Mg Film) 0 ea SL BID VIJAY Stop: 01/21/25 20:59 Gabapentin 100 mg/ Gabapentin (300 mg) 400 mg PO TID VIJAY Stop: 01/21/25 00:14 Heparin Sodium (Porcine) (Heparin Sod Inj 5000 Unit/Ml Vial) 5,000 unit SC Q8HR VIJAY Stop: 01/05/25 05:59 Last Admin: 12/22/24 05:26 Dose: 5,000 unit Sodium Chloride (Ns) 1,000 mls @ 125 mls/hr IV .Q8H VIJAY Stop: 01/20/25 21:42 Last Admin: 12/22/24 05:26 Dose: 125 mls/hr Ceftriaxone Sodium/Dextrose (Rocephin/D5w 1gm Iv Premix) 1 gm in 50 mls @ 100 mls/hr IV HS VIJAY Stop: 12/29/24 20:59 Midodrine (Midodrine 5 Mg Tablet) 10 mg PO TID VIJAY Stop: 01/21/25 13:59 Ondansetron HCl (Ondansetron Inj 2 Mg/Ml Inj 2 Ml) 4 mg IV Q6H PRN; Protocol PRN Reason: NAUSEA OR VOMITING Stop: 01/20/25 22:43 Pantoprazole Sodium (Pantoprazole 40 Mg Tablet) 40 mg PO QDAY VIJAY Stop: 01/21/25 08:59 Last Admin: 12/22/24 08:13 Dose: 40 mg Sennosides (Senna Tablet) 1 tab PO QDAY PRN; Protocol PRN Reason: constipation Stop: 01/20/25 22:43 Last Admin: 12/22/24 08:27 Dose: 1 tab Tamsulosin HCl (Tamsulosin Hcl 0.4 Mg Capsule) 0.4 mg PO QDAY VIJAY Stop: 01/21/25 08:59 Last Admin: 12/22/24 09:13 Dose: 0.4 mg Discontinued Medications Buprenorphine- (Naloxone 4-1 Mg Film) 0 ea SL X1 ONE Stop: 12/22/24 10:01 Last Admin: 12/22/24 10:04 Dose: 1 film Gabapentin (Gabapentin 100 Mg Capsule) 400 mg PO TID [facility] Stop: 01/21/25 00:14 Last Admin: 12/22/24 05:26 Dose: 400 mg Sodium Chloride (Ns) 1,000 mls @ 999 mls/hr IV .Q1H1M ONE Stop: 12/21/24 14:24 Last Infusion: 12/21/24 15:00 Dose: Infused Ceftriaxone Sodium/Dextrose (Rocephin/D5w 1gm Iv Premix) 1 g in 50 mls @ 100 mls/hr IV X1 ONE Stop: 12/21/24 22:59 Last Admin: 12/21/24 22:38 Dose: 100 mls/hr Home Medication- Please Speak With Patient Caregiver To Have Rx Brought To [facility] 1 film PO X1 ONE Stop: 12/22/24 00:16 Last Admin: 12/22/24 08:23 Dose: Not Given Assessment & Plan Plan 69-year-old male with previous medical history of hypotension on midodrine, hyperlipidemia, CKD stage III, status post right-sided nephrectomy, status postcardiopulmonary arrest/2023, GERD, chronic neck/back pain, BPH, chronic constipation, depression/anxiety, normocytic anemia that was admitted for syncopal episode #REN on CKD Patient presented with a Cr of 2.9 from baseline of around 1.9 when he was recently discharged Likely pre renal, possible orthostatic changes causing the syncope. Patient has received about 3L of fluid and Cr improved to 2.5 this morning. Plan: - Continue IV fluid and encourage Oral intake - Hold tamsulosin and consider finasteride for BPH - Avoid nephrotoxic medications - Orthostatic vitals - Continue midodrine 10 mg PO TID - Daily renal Panel #Syncope #History of BPH #History of GERD #Chronic backpain Plan: - As per primary team Thank you for allowing us to be part of the care team for Mr Tang. I discussed patient's care with attending physician, Dr Patti Mccurdy PGY3 Attending Provider Attestation/Addendum Patient seen and examined with resident physician Dr. Mcmanus. Note reviewed, agree with findings and recommendations. Well-known to me for many years from CKD clinic. Patient has hypotension for years and has been on midodrine. He is wheelchair-bound posterior spinal fusion. Presented with REN-most likely related to prerenal azotemia versus retention//urosepsis. continue with IV fluids. Recently admitted for similar episode. He has right nephrectomy for nonfunctioning kidney. Will monitor closely. Thank you Tosin for allowing me to participate in the care of Mr. Tang
[2024-12-22] MEDS: cefTRIAXone/D5w 2gm 2 GM/50 ML BAG IV (13:24)
[2024-12-22] MEDS: VANCOMYCIN/NS 1 GM IVPB 200 ML IV (13:25)
[2024-12-22] MEDS: MIDODRINE 5 MG TABLET 10 MG PO ×2 (13:26→21:15)
[2024-12-22] MEDS: GABAPENTIN 100 MG, GABAPENTIN 300 MG 400 MG PO ×2 (13:26→21:15)
--- NOTE | 2024-12-22 15:10 | ESPR_ITS ---
<Statement entered by Tosin Ford MD - 12/30/24 07:27> I reviewed above note and agree with findings and plans. I have also personally examined the patient with medicine team and went over assessment and plan with medical team including tech intern and resident physician. <Statement entered by Virginia Lopez MD - 12/22/24 16:07> Patient is 69-year-old male with past medical history of hypertension and midodrine, history of multiple syncope and recurrent UTIs who was admitted after an episode of syncope at home. Patient was at bedside today and stated that yesterday he missed his midodrine dosage, after which his blood pressure significantly dropped and he lost consciousness. Patient was admitted for syncope evaluation. Today upon our examination patient was hemodynamically stable, CBC unremarkable mild anemia with hemoglobin of 10.6, otherwise CMP revealed REN, creatinine of 2.5 with baseline about 1.8 patient does have a history of CKD, nephro was consulted for further recommendations. Cardiology was consulted for syncope evaluation, to rule out any cardiac cause, EKG is remarkable, pending echo last echo was done in 2023, did not reveal any aortic stenosis or other structural abnormalities, EF was 60 to 65%. Blood culture preliminary 2 out of 2 revealed GPC, could be contamination, will follow-up with the final results, however patient started on vancomycin and ceftriaxone, we will repeat blood culture, pending echo to rule out any vegetation. Will consider ID consult based on further culture results. I personally saw and examined the patient and discussed the assessment and plan with the entire medicine team, including my attending , Virginia Lopez M.D. PGY-2 Disclaimer: Despite multiple revisions, due to the dictation software being used, the document bellow may not be free of grammatical errors including phonetic/typographic errors. However, this does not deter from our commitment to providing health care in the patient's best interest in mind. Documentation for date of: 12/22/24 Subjective Subjective Interval history: No overnight events. Patient seen examined at bedside, resting partially. Patient is concerned about possibility of UTI. Patient denies fevers, chills, chest pain, shortness of breath, headaches, no weakness, fatigue, abdominal pain, nausea, vomiting, dysuria. Nephrology and cardiology consulted, follow-up recommendations. Pending echo, orthostatic vital. Continue to monitor. Exam Vital Signs Temp Pulse Resp BP Pulse Ox O2 Del Method 97.2 F 80 18 120/85 H 97 Room Air 12/22/24 12:00 12/22/24 13:26 12/22/24 12:00 12/22/24 13:26 12/22/24 12:00 12/22/24 12:00 Narrative Exam PE: Gen: Well-developed and well-nourished. HEENT: NCAT, PERRLA, EOMI, MMM, anicteric conjunctivae. CVS: normal S1 and S2. RRR. No M/R/G. Resp: CTA B/L. No rhonchi, rales, crackles or wheezing. Abd: soft, non-tender, non-distended. MSK: Good ROM in BUE & BLE. No edema or rash. Neuro: CN II-XII grossly intact. Strength 5/5 in BUE & 4/5 BLE. Alert and oriented x3. Psych: appropriate mood and affect. Objective Labs 12/22/24 05:22 12/22/24 05:22 Labs: Laboratory Results - last 24 hr 12/21/24 12/21/24 12/22/24 17:33 23:22 05:22 WBC 5.2 RBC 3.66 L Hgb 10.6 L Hct 32.0 L MCV 87 MCH 29.0 MCHC 33.1 RDW Std Deviation 42.4 Plt Count 151 D Neut % (Auto) 58 Lymph % (Auto) 21 Alfalfa % (Auto) 11 Eos % (Auto) 9 Baso % (Auto) 1 Neut # (Auto) 3.0 Lymph # (Auto) 1.1 Alfalfa # (Auto) 0.6 Eos # (Auto) 0.5 Baso # (Auto) 0.0 Immature Gran # (Auto) 0.02 H Absolute Nucleated RBC 0.00 Immature Gran % 0 Nucleated RBC % 0 Sodium 138 Potassium 3.9 D Chloride 108 H Carbon Dioxide 21.0 Anion Gap 9 BUN 29 H Creatinine 2.5 H Estim Creat Clear Calc 29.8 L eGFR 27 L BUN/Creatinine Ratio 12 Glucose 94 Calculated Osmolality 281 Calcium 8.5 Corrected Calcium 9.0 Phosphorus 2.4 Magnesium 1.7 Total Bilirubin 0.4 AST 27 ALT 24 Alkaline Phosphatase 81 Troponin I 0.059 H* 0.060 H* Total Protein 5.5 L Albumin 3.4 Globulin 2.1 L Albumin/Globulin Ratio 1.6 Procalcitonin 0.17 Quality Measures Quality Measures VTE prophylaxis Advance care planning discussed with:: patient Assessment & Plan Assessment Current Active Medications: Generic Name Dose Route Start Last Admin Trade Name Freq PRN Reason Stop Dose Admin Acetaminophen 650 mg 12/21/24 22:44 Acetaminophen 325 Mg Tablet PO 01/20/25 22:43 Q6H PRN Fever >100.3 or pain 1-3 Buprenorphine- 0 ea 12/22/24 21:00 Naloxone 4-1 Mg Film SL 01/21/25 20:59 BID VIJAY Gabapentin 100 mg/ Gabapentin 400 mg 12/22/24 21:00 300 mg PO 01/21/25 20:59 BID VIJAY Heparin Sodium (Porcine) 5,000 unit 12/22/24 06:00 12/22/24 13:25 Heparin Sod Inj 5000 Unit/Ml Vial SC 01/05/25 05:59 5,000 unit Q8HR VIJAY Administration Sodium Chloride 1,000 mls @ 125 mls/hr 12/21/24 21:43 12/22/24 13:31 Ns IV 01/20/25 21:42 125 mls/hr .Q8H VIJAY Administration Ceftriaxone Sodium/Dextrose 2 gm in 50 mls @ 100 mls/hr 12/22/24 12:15 12/22/24 13:24 Rocephin/D5w 2gm IV 12/29/24 12:01 100 mls/hr QDAY VIJAY Administration Midodrine 10 mg 12/22/24 14:00 12/22/24 13:26 Midodrine 5 Mg Tablet PO 01/21/25 13:59 10 mg TID VIJAY Administration Ondansetron HCl 4 mg 12/21/24 22:44 Ondansetron Inj 2 Mg/Ml Inj 2 Ml IV 01/20/25 22:43 Q6H PRN NAUSEA OR VOMITING Protocol Pantoprazole Sodium 40 mg 12/22/24 09:00 12/22/24 08:13 Pantoprazole 40 Mg Tablet PO 01/21/25 08:59 40 mg QDAY VIJAY Administration Pharmacy Consult 1 each 12/22/24 12:15 Vancomycin Pharmacy To Dose 1 Each Each IV 01/21/25 12:14 QDAY PRN CONSULT Sennosides 1 tab 12/21/24 22:44 12/22/24 08:27 Senna Tablet PO 01/20/25 22:43 1 tab QDAY PRN Administration constipation Protocol Plan 69-year-old male with previous medical history of hypertension, hyperlipidemia, CKD stage III, status post right-sided nephrectomy, status postcardiopulmonary arrest/2023, GERD, chronic neck/back pain, BPH, chronic constipation, depression/anxiety, normocytic anemia who was brought to the ED by the ambulance on 12/21/2024 due to altered mental status, admitted due to syncope episode and REN on CKD. #Orthostatic syncope, recurrent Patient had a episode of syncope when moving from wheelchair to bed. Patient had frequent presenting syncope upon standing the past, typically associated with hypotension. On presentation patient blood pressure 69/50, improved with IVF. - Telemetry - Echo ordered - Orthostastic vitals - Fall precautions - Cardiology consult, follow-up - Nephrology consult, appreciate recommendations - Resume home meds: Midodrine 10 mg p.o. 3 times daily #Bacteremia, GPC #Sepsis ruled out Patient blood cultures taken on admission, grew GPC 2/2 bottles. Pending speciation. Patient afebrile, Pro-Aashish negative. No leukocytosis. Empiric treatment initiated. - Ceftriaxone 2 g IV daily (started 12/22) - Vancomycin pharmacy dosing (started 12/22) - Repeat blood cultures pending. #REN on CKD Creatinine 2.9 (previously 1.9 on 12/16/24), EGFR 23, glucose 115. - Daily CMP - Avoid nephrotoxic agents - Nephrology consulted, appreciate recommendations - Replete electrolytes as necessary #History of GERD Patient reports epigastric burning. - Pantoprazole 40 mg qday #Chronic backpain Patient history of chronic back pain. - Resumed home gabapentin, down titrated to 400 mg p.o. twice daily - Home buprenorphine-naloxone x1, will cautiously titrate due to syncope FEN: renal diet DVT prophylaxis: heparin sc GI prophylaxis: pantoprazole Lines: Peripheral IV CODE STATUS: Full code Plan of care discussed with senior resident Dr. Lopez PGY?[address] Ford. Alban Bush MD PGY?1
--- NOTE | 2024-12-22 16:09 | PC.SS ---
Patient is alert/oriented. He was able to verify demographics. Patient states he resides with his . Patient was admitted for an REN. Patient states he fell at home. He fainted. Patient pending PT eval. Patient states his provides transportation to appointments. Patient uses a walker at home. Patient sees a shading painter. Patient experiences back pain. He follows the specialist once a month. PCP: Dr. Russell @ [facility]. Pharmacy: [facility] medical decision maker: Nena,
[2024-12-22] MEDS: ONDANSETRON INJ 2 MG/ML INJ 2 ML 4 MG IV (17:25)
[2024-12-23] VITALS (12 sets, daily range): BP systolic 103–157; BP diastolic 63–88; PULSE 61–87; RESP 15–97; TEMP 36–36.7; O2SAT 96–99; BMI 30.9
[2024-12-23 05:18] LABS: Basophils % (Auto) 1 % (0-2.5); Eosinophils # (Auto) 0.5 Thou/mm3 (0.0-0.5); Eosinophils % (Auto) 10 % (0-10); Hemoglobin 10.5 g/dL (13.5-16.0); Immature Granulocytes % (Auto) 0 % (0-0); Immature Granulocytes Auto 0.02 Thou/mm3 (0.00-0.00); Lymphocytes # (Auto) 1.3 Thou/mm3 (1.0-4.8); Lymphocytes % (Auto) 24 % (10-50); Mean Corpuscular HGB Conc 32.8 g/dl (31.0-37.0); Mean Corpuscular Hemoglobin 29.7 pg (25.0-35.0); Mean Corpuscular Volume 90 fL (80-100); Monocytes # (Auto) 0.7 Thou/mm3 (0.0-0.8); Monocytes % (Auto) 12 % (0-12); Neutrophils % (Auto) 54 % (37-80); Nucleated Red Blood Cell % 0 /100 WBC (0); Platelet Count 185 Thou/mm3 (140-440); RDW Standard Deviation 43.3 fL (35.1-43.9); Red Blood Count 3.54 Miln/mm3 (4.50-5.90); White Blood Count 5.6 Thou/mm3 (3.8-10.6)
[2024-12-23] MEDS: HEPARIN SOD INJ 5000 UNIT/ML VIAL SC ×3 (05:19→21:08)
[2024-12-23 05:51] LABS: Alanine Aminotransferase 17 U/L (10-49); Albumin, Serum 3.4 gm/dL (3.4-4.8); Albumin/Globulin Ratio 1.6 (1.2-2.2); Alkaline Phosphatase 81 U/L (46-116); Anion Gap 7 (7-16); Aspartate Amino Transferase 21 U/L (0-34); BUN/Creatinine Ratio 11 Ratio (12-20); Bilirubin,Total 0.4 mg/dL (0.3-1.2); Blood Urea Nitrogen 25 mg/dL (9-23); Calcium 8.5 mg/dL (8.3-10.6); Carbon Dioxide 23.4 mMol/L (20.0-31.0); Chloride 113 mMol/L (98-107); Creatinine (Component) 2.2 mg/dL (0.6-1.3); Estimated Creatinine Clearance 33.8 mL/min (>60); Globulin 2.1 gm/dL (2.3-3.5); Glucose 101 mg/dL (74-106); Magnesium 1.6 mg/dL (1.6-2.6); Osmolality,Calculated 289 (275-295); Phosphorous 2.4 mg/dL (2.4-5.1); Potassium 4.6 mMol/L (3.4-5.1); Sodium 143 mMol/L (136-145); Total Protein 5.5 gm/dL (5.7-8.2); eGFR 32 See Note
--- NOTE | 2024-12-23 07:45 | PD.IMCONS ---
HPI Data of Consult Requesting Physician: Tosin Ford MD Primary Care Provider: Yury Russell MD Consult Narrative History of present illness: This is a 69-year-old male with previous medical history of hypotension on midodrine, hyperlipidemia, CKD stage III, status post right-sided nephrectomy, status postcardiopulmonary arrest/2023, GERD, chronic neck/back pain, BPH, chronic constipation, depression/anxiety, normocytic anemia Patient was seen in the emergency room with a complaint of confusion and altered level of mental status Patient denies any chest pain neck pain left arm pain shortness of breath Generalized weakness reported Patient has a history of chronic renal dysfunction She he also has a history of chronic hypotension though currently blood pressure is improved EKG does not show any acute ST-T wave changes Troponins are negative cc:: cc: Tosin Ford MD Meds Home Medications and Allergies Home Medications ?Medication ?Instructions ?Recorded ?Confirmed ?Type gabapentin 400 mg capsule 400 mg PO TID 01/03/24 12/21/24 History amitriptyline 10 mg tablet 10 mg PO .qdayhs 12/14/24 12/21/24 History atorvastatin 40 mg tablet 40 mg PO QDAY 12/14/24 12/21/24 History buprenorphine 4 mg-naloxone 1 mg 1 film buccal BID 12/14/24 12/21/24 History sublingual film folic acid 1 mg tablet 1 mg PO QDAY 12/14/24 12/21/24 History lidocaine 5 % topical patch 1 patch topical Q24H 12/14/24 12/21/24 History midodrine 10 mg tablet 10 mg PO TID 12/14/24 12/21/24 History thiamine HCl (vitamin B1) 100 mg 100 mg PO QDAY 12/14/24 12/21/24 History tablet Allergies Allergy/AdvReac Type Severity Reaction Status Date / Time zolpidem AdvReac Mild MAKES ME Verified 05/28/22 11:03 CRAZY Exam Vital Signs Temp Pulse Resp BP Pulse Ox O2 Del Method 97.7 F 82 15 157/88 H 96 Room Air 12/23/24 04:00 12/23/24 05:19 12/23/24 04:00 12/23/24 05:19 12/23/24 04:00 12/23/24 04:00 Routine HEENT Exam Head: Present normocephalic and atraumatic Eye: Present EOMI and PERRL ENT: Present mucous membranes moist Routine Neck Exam Neck: Present supple and trachea midline Routine Respiratory Exam Respiratory: Present chest non-tender, lungs clear, normal breath sounds and no resp distress Routine Cardiovascular Exam Cardiovascular: Present RRR Routine Abdominal Exam Abdominal: Present soft and normoactive bowel sounds Routine Extremities Exam Extremities: Present full ROM Routine Skin Exam Skin: Present intact, dry and warm Routine Neurological Exam Neurological: Present alert, oriented X3 and CN II-XII intact Routine Psychiatric Exam Psychiatric: Present normal affect and normal thought process Results Labs 12/23/24 04:40 12/23/24 04:40 Labs: Short CBC 12/23/24 Range/Units 04:40 WBC 5.6 (3.8-10.6) Thou/mm3 Hgb 10.5 L (13.5-16.0) g/dL Hct 32.0 L (41.0-53.0) % Plt Count 185 D (140-440) Thou/mm3 BMP 12/23/24 04:40 Sodium 143 Potassium 4.6 D Chloride 113 H Carbon Dioxide 23.4 BUN 25 H Creatinine 2.2 H Glucose 101 Calcium 8.5 Liver Function 12/23/24 Range/Units 04:40 Total Bilirubin 0.4 (0.3-1.2) mg/dL AST 21 (0-34) U/L ALT 17 (10-49) U/L Alkaline Phosphatase 81 (46-116) U/L Albumin 3.4 (3.4-4.8) gm/dL Assessment and Plan Assessment and plan (1) CKD (chronic kidney disease): Status: Acute (2) Hypotension: Status: Acute (3) Chronic kidney disease, stage 3: Status: Acute (4) Chronic low back pain: Status: Acute (5) Syncope: Status: Acute Additional Assessment & Plan Additional Plan: Hypotension improved patient mental function somewhat improved EKG troponin unremarkable We will follow-up echo report Patient has a history of chronic hypotension on midodrine Continue midodrine
--- NOTE | 2024-12-23 08:09 | PD.RESPRO ---
Documentation for date of: 12/23/24 Subjective Subjective Interval history: Patient seen and examined in [facility] today. There were no major overnight events and patient feels well this morning. BP is stable and actually high now. Creatinine is improving steadily and it was 2.2 today. Exam Vital Signs Temp Pulse Resp BP Pulse Ox O2 Del Method 97.7 F 82 15 157/88 H 96 Room Air 12/23/24 04:00 12/23/24 05:19 12/23/24 04:00 12/23/24 05:19 12/23/24 04:00 12/23/24 04:00 Narrative Exam Constitutional: Well nourished and in no acute distress CVS: RRR, S1 and S2 present, no murmurs, rubs or gallops . RESP: CTAB, no SOB, no rales, rhonchi or wheezing. No respiratory Distress GI: Normal BS, Nontender/Nondistended. MSK: Full range of motion, No trauma or deformities or masses. Skin: Warm to touch, Dry. No rashes or lesions. 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 Sensation grossly intact. Psych: (AAO) x3 . Appropriate mood and affect. Objective Labs 12/23/24 04:40 12/23/24 04:40 Labs: Laboratory Results - last 24 hr 12/23/24 04:40 WBC 5.6 RBC 3.54 L Hgb 10.5 L Hct 32.0 L MCV 90 MCH 29.7 MCHC 32.8 RDW Std Deviation 43.3 Plt Count 185 D Neut % (Auto) 54 Lymph % (Auto) 24 [place] % (Auto) 12 Eos % (Auto) 10 Baso % (Auto) 1 Neut # (Auto) 3.0 Lymph # (Auto) 1.3 [place] # (Auto) 0.7 Eos # (Auto) 0.5 Baso # (Auto) 0.0 Immature Gran # (Auto) 0.02 H Absolute Nucleated RBC 0.00 Immature Gran % 0 Nucleated RBC % 0 Sodium 143 Potassium 4.6 D Chloride 113 H Carbon Dioxide 23.4 Anion Gap 7 BUN 25 H Creatinine 2.2 H Estim Creat Clear Calc 33.8 L eGFR 32 L BUN/Creatinine Ratio 11 L Glucose 101 Calculated Osmolality 289 Calcium 8.5 Corrected Calcium 9.0 Phosphorus 2.4 Magnesium 1.6 Total Bilirubin 0.4 AST 21 ALT 17 Alkaline Phosphatase 81 Total Protein 5.5 L Albumin 3.4 Globulin 2.1 L Albumin/Globulin Ratio 1.6 Quality Measures Quality Measures VTE prophylaxis Advance care planning discussed with:: patient Assessment & Plan Assessment Current Active Medications: Generic Name Dose Route Start Last Admin Trade Name Freq PRN Reason Stop Dose Admin Acetaminophen 650 mg 12/21/24 22:44 Acetaminophen 325 Mg Tablet PO 01/20/25 22:43 Q6H PRN Fever >100.3 or pain 1-3 Buprenorphine- 0 ea 12/22/24 21:00 12/22/24 21:16 Naloxone 4-1 Mg Film SL 01/21/25 20:59 1 film BID VIJAY Administration Gabapentin 100 mg/ Gabapentin 400 mg 12/22/24 21:00 12/22/24 21:15 300 mg PO 01/21/25 20:59 400 mg BID VIJAY Administration Heparin Sodium (Porcine) 5,000 unit 12/22/24 06:00 12/23/24 05:19 Heparin Sod Inj 5000 Unit/Ml Vial SC 01/05/25 05:59 5,000 unit Q8HR VIJAY Administration Sodium Chloride 1,000 mls @ 125 mls/hr 12/21/24 21:43 12/22/24 23:33 Ns IV 01/20/25 21:42 125 mls/hr .Q8H VIJAY Administration Ceftriaxone Sodium/Dextrose 2 gm in 50 mls @ 100 mls/hr 12/22/24 12:15 12/22/24 13:24 Rocephin/D5w 2gm IV 12/29/24 12:01 100 mls/hr QDAY VIJAY Administration Vancomycin/Sodium Chloride 750 mg in 150 mls @ 120 mls/hr 12/23/24 10:00 Vancomycin/Ns 750 Mg Ivpb IV 12/30/24 09:59 Q24H VIJAY Midodrine 10 mg 12/22/24 14:00 12/23/24 05:19 Midodrine 5 Mg Tablet PO 01/21/25 13:59 Not Given TID VIJAY Ondansetron HCl 4 mg 12/21/24 22:44 12/22/24 17:25 Ondansetron Inj 2 Mg/Ml Inj 2 Ml IV 01/20/25 22:43 4 mg Q6H PRN Administration NAUSEA OR VOMITING Protocol Pantoprazole Sodium 40 mg 12/22/24 09:00 12/22/24 08:13 Pantoprazole 40 Mg Tablet PO 01/21/25 08:59 40 mg QDAY VIJAY Administration Pharmacy Consult 1 each 12/22/24 12:15 Vancomycin Pharmacy To Dose 1 Each Each IV 01/21/25 12:14 QDAY PRN CONSULT Sennosides 1 tab 12/21/24 22:44 12/22/24 08:27 Senna Tablet PO 01/20/25 22:43 1 tab QDAY PRN Administration constipation Protocol Plan 69-year-old male with previous medical history of hypotension on midodrine, hyperlipidemia, CKD stage III, status post right-sided nephrectomy, status postcardiopulmonary arrest/2023, GERD, chronic neck/back pain, BPH, chronic constipation, depression/anxiety, normocytic anemia that was admitted for syncopal episode #REN on CKD Patient presented with a Cr of 2.9 from baseline of around 1.9 when he was recently discharged Likely pre renal, possible orthostatic changes causing the syncope. Patient has received about 3L of fluid and Cr improved to 2.5 this morning. Plan: - Can discontinue IV fluids and encourage Oral intake - Hold tamsulosin and consider finasteride for BPH - Avoid nephrotoxic medications - Orthostatic vitals - Continue midodrine 10 mg PO TID - Daily renal Panel #Syncope #History of BPH #History of GERD #Chronic backpain Plan: - As per primary team Thank you for allowing us to be part of the care team for Mr Tang. I discussed patient's care with attending physician, Dr Patti Mccurdy PGY3 Attending Provider Attestation/Addendum Patient seen and examined with resident physician Dr. Mcmanus. Note reviewed, agree with findings and recommendations. Well-known to me for many years from CKD clinic. Patient has hypotension for years and has been on midodrine. He is wheelchair-bound posterior spinal fusion. Presented with REN-most likely related to prerenal azotemia versus retention//urosepsis. continue with IV fluids. Recently admitted for similar episode. He has right nephrectomy for nonfunctioning kidney. Will monitor closely. Hemoglobin 10.5, sodium 143, potassium 4.6, bicarbonate 23, BUN 25, creatinine 2.2, GFR 32, calcium 8.5, phosphorus 2.4, magnesium 1.6, LFTs normal, albumin 3.4, echocardiogram showed ejection fraction 55 to 60% with diastolic dysfunction. Head CT negative. Thank you Tosin for allowing me to participate in the care of Mr. Tang
[2024-12-23] MEDS: SODIUM CHLORIDE 0.9% 1000 ML 1,000 ML 125 ML IV ×2 (08:42→22:03)
[2024-12-23] MEDS: GABAPENTIN 100 MG, GABAPENTIN 300 MG 400 MG PO ×2 (08:43→21:07)
[2024-12-23] MEDS: PANTOPRAZOLE 40 MG TABLET PO (08:44)
[2024-12-23] MEDS: cefTRIAXone/D5w 2gm 2 GM/50 ML BAG IV (08:44)
[2024-12-23] MEDS: VANCOMYCIN/NS 750 MG IVPB 750 MG/150 ML BAG 120 MG IV (10:40)
--- NOTE | 2024-12-23 13:38 | ESPR_ITS ---
<Statement entered by Tosin Ford MD - 12/30/24 07:28> I reviewed above note and agree with findings and plans. I have also personally examined the patient with medicine team and went over assessment and plan with medical team including news department intern and resident physician. <Statement entered by Virginia Lopez MD - 12/23/24 14:28> Patient was seen and examined. No acute overnight events. CBC unremarkable, stable hemoglobin of 10.5, CMP revealed mild improvement of kidney function, creatinine down to 2.2 from 2.5, patient is having adequate urine output. Patient continues to be on vancomycin and ceftriaxone as 2 out of 2 aerobic bottles reveal GPC , pending final blood culture results, could be contamination, however we will continue treatment until final BC results. Repeat blood culture in 24 hours negative. Will follow-up with final results. Echo was done which did not reveal any structural abnormalities that could cause syncope episode, patient will need to have outpatient Holter monitoring, Also there might be a component of polypharmacy, as patient is on buprenorphin/naloxone, gabapentin 400 3 times daily at home, patient explained in details that multiple pain medication regimen can cause hypotension, controlled with midodrine 10 3 times daily, also pending nephrology recommendations regarding kidney function. Pending orthostatic vitals. I personally saw and examined the patient and discussed the assessment and plan with the entire medicine team, including my attending , Virginia Lopez M.D. PGY-2 Disclaimer: Despite multiple revisions, due to the dictation software being used, the document bellow may not be free of grammatical errors including phonetic/typographic errors. However, this does not deter from our commitment to providing health care in the patient's best interest in mind. Documentation for date of: 12/23/24 Subjective Subjective Interval history: No overnight events. Patient seen examined at bedside, resting comfortably. Denies headache, dizziness, blurry vision, fatigue, weakness. Reports overall feeling subjectively well. Pending orthostatic vitals. Continuing midodrine, blood pressure monitoring. Patient to follow-up with nephrology and cardiology outpatient. Exam Vital Signs Temp Pulse Resp BP Pulse Ox O2 Del Method 97 F 64 16 131/74 H 98 Room Air 12/23/24 12:00 12/23/24 12:00 12/23/24 12:00 12/23/24 12:00 12/23/24 12:00 12/23/24 12:00 Narrative Exam PE: Gen: Well-developed and well-nourished. HEENT: NCAT, PERRLA, EOMI, MMM, anicteric conjunctivae. CVS: normal S1 and S2. RRR. No M/R/G. Resp: CTA B/L. No rhonchi, rales, crackles or wheezing. Abd: soft, non-tender, non-distended. MSK: Good ROM in BUE & BLE. No edema or rash. Neuro: CN II-XII grossly intact. Strength 5/5 in BUE & 4/5 BLE. Alert and oriented x3. Psych: appropriate mood and affect. Objective Labs 12/23/24 04:40 12/23/24 04:40 Labs: Laboratory Results - last 24 hr 12/23/24 04:40 WBC 5.6 RBC 3.54 L Hgb 10.5 L Hct 32.0 L MCV 90 MCH 29.7 MCHC 32.8 RDW Std Deviation 43.3 Plt Count 185 D Neut % (Auto) 54 Lymph % (Auto) 24 [place] % (Auto) 12 Eos % (Auto) 10 Baso % (Auto) 1 Neut # (Auto) 3.0 Lymph # (Auto) 1.3 [place] # (Auto) 0.7 Eos # (Auto) 0.5 Baso # (Auto) 0.0 Immature Gran # (Auto) 0.02 H Absolute Nucleated RBC 0.00 Immature Gran % 0 Nucleated RBC % 0 Sodium 143 Potassium 4.6 D Chloride 113 H Carbon Dioxide 23.4 Anion Gap 7 BUN 25 H Creatinine 2.2 H Estim Creat Clear Calc 33.8 L eGFR 32 L BUN/Creatinine Ratio 11 L Glucose 101 Calculated Osmolality 289 Calcium 8.5 Corrected Calcium 9.0 Phosphorus 2.4 Magnesium 1.6 Total Bilirubin 0.4 AST 21 ALT 17 Alkaline Phosphatase 81 Total Protein 5.5 L Albumin 3.4 Globulin 2.1 L Albumin/Globulin Ratio 1.6 Quality Measures Quality Measures VTE prophylaxis Advance care planning discussed with:: patient and spouse Assessment & Plan Assessment Current Active Medications: Generic Name Dose Route Start Last Admin Trade Name Freq PRN Reason Stop Dose Admin Acetaminophen 650 mg 12/21/24 22:44 Acetaminophen 325 Mg Tablet PO 01/20/25 22:43 Q6H PRN Fever >100.3 or pain 1-3 Buprenorphine- 0 ea 12/22/24 21:00 12/23/24 09:00 Naloxone 4-1 Mg Film SL 01/21/25 20:59 1 film BID VIJAY Administration Gabapentin 100 mg/ Gabapentin 400 mg 12/22/24 21:00 12/23/24 08:43 300 mg PO 01/21/25 20:59 400 mg BID VIJAY Administration Heparin Sodium (Porcine) 5,000 unit 12/22/24 06:00 12/23/24 05:19 Heparin Sod Inj 5000 Unit/Ml Vial SC 01/05/25 05:59 5,000 unit Q8HR VIJAY Administration Sodium Chloride 1,000 mls @ 125 mls/hr 12/21/24 21:43 12/23/24 08:42 Ns IV 01/20/25 21:42 125 mls/hr .Q8H VIJAY Administration Ceftriaxone Sodium/Dextrose 2 gm in 50 mls @ 100 mls/hr 12/22/24 12:15 12/23/24 08:44 Rocephin/D5w 2gm IV 12/29/24 12:01 100 mls/hr QDAY VIJAY Administration Vancomycin/Sodium Chloride 750 mg in 150 mls @ 120 mls/hr 12/23/24 10:00 12/23/24 10:40 Vancomycin/Ns 750 Mg Ivpb IV 12/30/24 09:59 120 mls/hr Q24H VIJAY Administration Midodrine 10 mg 12/22/24 14:00 12/23/24 05:19 Midodrine 5 Mg Tablet PO 01/21/25 13:59 Not Given TID VIJAY Ondansetron HCl 4 mg 12/21/24 22:44 12/22/24 17:25 Ondansetron Inj 2 Mg/Ml Inj 2 Ml IV 01/20/25 22:43 4 mg Q6H PRN Administration NAUSEA OR VOMITING Protocol Pantoprazole Sodium 40 mg 12/22/24 09:00 12/23/24 08:44 Pantoprazole 40 Mg Tablet PO 01/21/25 08:59 40 mg QDAY VIJAY Administration Pharmacy Consult 1 each 12/22/24 12:15 Vancomycin Pharmacy To Dose 1 Each Each IV 01/21/25 12:14 QDAY PRN CONSULT Sennosides 1 tab 12/21/24 22:44 12/22/24 08:27 Senna Tablet PO 01/20/25 22:43 1 tab QDAY PRN Administration constipation Protocol Plan 69-year-old male with previous medical history of hypertension, hyperlipidemia, CKD stage III, status post right-sided nephrectomy, status postcardiopulmonary arrest/2023, GERD, chronic neck/back pain, BPH, chronic constipation, depression/anxiety, normocytic anemia who was brought to the ED by the ambulance on 12/21/2024 due to altered mental status, admitted due to syncope episode and REN on CKD. #Orthostatic syncope, recurrent Patient had a episode of syncope when moving from wheelchair to bed. Patient had frequent presenting syncope upon standing the past, typically associated with hypotension. On presentation patient blood pressure 69/50, improved with IVF. Echo taken, shows ejection fraction 55 to 60%, grade 1 diastolic dysfunction. Patient noted to have inverted T waves on EKGs, not present on EKGs from 1 year ago. - Orthostastic vitals - Fall precautions - Cardiology consult, appreciate recommendations - Nephrology consult, appreciate recommendations - Resume home meds: Midodrine 10 mg p.o. 3 times daily - Patient to follow-up with cardiology and nephrology upon discharge #Bacteremia, GPC #Sepsis ruled out Patient blood cultures taken on admission, grew GPC 2/2 bottles. Pending speciation. Patient afebrile, Pro-Aashish negative. No leukocytosis. Empiric treatment initiated. - Ceftriaxone 2 g IV daily (started 12/22) - Vancomycin pharmacy dosing (started 12/22) - Repeat blood cultures pending. #REN on CKD Creatinine 2.9 (previously 1.9 on 12/16/24), EGFR 23, glucose 115. REN improving back towards baseline. Encouraged oral hydration. - Daily CMP - Avoid nephrotoxic agents - Nephrology consulted, appreciate recommendations - Replete electrolytes as necessary #History of GERD Patient reports epigastric burning. - Pantoprazole 40 mg qday #Chronic backpain Patient history of chronic back pain. - Resumed home gabapentin, down titrated to 400 mg p.o. twice daily - Home buprenorphine-naloxone x1, will cautiously titrate due to syncope FEN: renal diet DVT prophylaxis: heparin sc GI prophylaxis: pantoprazole Lines: Peripheral IV CODE STATUS: Full code Plan of care discussed with senior resident Dr. Lopez PGY?[address] Ford. Alban Bush MD PGY?1
--- NOTE | 2024-12-23 14:32 | PC.PT ---
PT eval only. Patient is at his PLOF.
[2024-12-23] MEDS: SENNA TABLET 1 TAB PO (21:15)
--- NOTE | 2024-12-23 21:26 | PC.NURSE ---
MD Peoples made aware of BP 143/80, pt is on Midodrine, put a parameter for this meds to hold if MAP <65.
--- NOTE | 2024-12-23 21:43 | ECHO_ITS ---
Transthoracic Echo Report Ht (in): 68 Wt (lb): 203 Exam Location: [facility] Status: Inpatient Acute Care Nurse: MELISSA Harris^^^^ Indications: Procedure Performed: BP: / HR: 81 Technical Quality: Technically difficult study MEASUREMENTS (Male / Female) Normal Values 2D ECHO LV Diastolic Diameter PLAX 2.9 cm 4.2 - 5.9 / 3.9 - 5.3 cm LV Systolic Diameter PLAX 1.9 cm IVS Diastolic Thickness 1.5 cm 0.6 - 1.0 / 0.6 - 0.9 cm LVPW Diastolic Thickness 1.3 cm 0.6 - 1.0 / 0.6 - 0.9 cm LV Relative Wall Thickness 0.9 LVOT Diameter 2.0 cm Aortic Root Diameter 3.6 cm LA Systolic Diameter LX 4.5 cm 3.0 - 4.0 / 2.7 - 3.8 cm LA Volume Index 44.4 cm?/m? 16 - 28 cm?/m? DOPPLER AV Peak Velocity 117.3 cm/s AV Peak Gradient 5.5 mmHg AV Mean Gradient 3.0 mmHg AV Velocity Time Integral 30.0 cm LVOT Peak Velocity 101.8 cm/s LVOT Peak Gradient 4.1 mmHg LVOT Velocity Time Integral 32.8 cm LVOT Cardiac Index 3914.4 cm?/min?m? AV Area Cont Eq vti 3.4 cm? AV Area Cont Eq pk 2.7 cm? MV Area PHT 2.4 cm? Mitral E Point Velocity 59.4 cm/s Mitral A Point Velocity 87.7 cm/s Mitral E to A Ratio 0.7 LV E' Lateral Velocity 4.8 cm/s Mitral E to LV E' Lateral Ratio 12.4 LV E' Septal Velocity 5.3 cm/s Mitral E to LV E' Septal Ratio 11.1 RVOT Peak Velocity 57.6 cm/s FINDINGS Left Ventricle Normal left ventricular size, wall thickness, systolic function with no obvious regional wall motion abnormalities. There is grade I diastolic dysfunction of the left ventricle (impaired relaxation pattern). The left ventricular ejection fraction is normal, estimated at 55-60%. Right Ventricle The right ventricle is normal in size and systolic function. The estimated right ventricular systolic pressure, 15 mmHg. Left Atrium Mildly increased left atrial volume 44.4 mL/m?. Right Atrium The right atrium is normal by two-dimensional imaging, color flow and Doppler imaging with no structural abnormalities, no thrombus formation present. Atrial Septum The interatrial septum appears normal with no evidence of a shunt. Aorta The aorta is normal by two-dimensional, color flow and Doppler interrogation. Mitral Valve Trace to mild mitral regurgitation. Mild mitral annular calcification. Aortic Valve The aortic valve is trileaflet and normal by two-dimensional, color flow and Doppler interrogation. There is no significant aortic valve regurgitation. Tricuspid Valve There is trace tricuspid valve regurgitation. Pulmonic Valve The pulmonic valve is not well visualized. There is no significant pulmonic valve regurgitation. Vessels The pulmonary artery appears normal. The inferior vena cava pulmonary and hepatic veins appear normal. Pericardium The pericardium is normal by two-dimensional imaging. There is no significant pericardial effusion. CONCLUSIONS indication: syncope LVEF 55-60%. Diastolic Dysfunction I. RVSP 15 mmHg. Mild TR & MR Rmea Horn (Electronically Signed) Final Date: 23 December 2024 13:31
[2024-12-24] VITALS (11 sets, daily range): BP systolic 123–174; BP diastolic 71–94; PULSE 64–93; RESP 16–97; TEMP 36.2–36.6; O2SAT 91–100; BMI 30.9; BMI 29.7
[2024-12-24 05:33] LABS: Basophils % (Auto) 0 % (0-2.5); Eosinophils # (Auto) 0.5 Thou/mm3 (0.0-0.5); Eosinophils % (Auto) 10 % (0-10); Hematocrit 30.5 % (41.0-53.0); Hemoglobin 9.9 g/dL (13.5-16.0); Immature Granulocytes % (Auto) 0 % (0-0); Immature Granulocytes Auto 0.01 Thou/mm3 (0.00-0.00); Lymphocytes % (Auto) 21 % (10-50); Mean Corpuscular HGB Conc 32.5 g/dl (31.0-37.0); Mean Corpuscular Hemoglobin 29.1 pg (25.0-35.0); Mean Corpuscular Volume 90 fL (80-100); Monocytes # (Auto) 0.6 Thou/mm3 (0.0-0.8); Monocytes % (Auto) 11 % (0-12); Neutrophils # (Auto) 2.8 Thou/mm3 (1.8-7.7); Neutrophils % (Auto) 57 % (37-80); Nucleated Red Blood Cell % 0 /100 WBC (0); Platelet Count 149 Thou/mm3 (140-440); RDW Standard Deviation 43.8 fL (35.1-43.9); White Blood Count 4.9 Thou/mm3 (3.8-10.6)
[2024-12-24 05:54] LABS: Alanine Aminotransferase 15 U/L (10-49); Albumin, Serum 3.4 gm/dL (3.4-4.8); Albumin/Globulin Ratio 1.7 (1.2-2.2); Alkaline Phosphatase 75 U/L (46-116); Anion Gap 7 (7-16); Aspartate Amino Transferase 20 U/L (0-34); BUN/Creatinine Ratio 9 Ratio (12-20); Bilirubin,Total 0.3 mg/dL (0.3-1.2); Blood Urea Nitrogen 19 mg/dL (9-23); Calcium (Corrected) 9.5 mg/dL (8.5-10.1); Carbon Dioxide 21.7 mMol/L (20.0-31.0); Chloride 112 mMol/L (98-107); Creatinine (Component) 2.2 mg/dL (0.6-1.3); Estimated Creatinine Clearance 34.9 mL/min (>60); Glucose 102 mg/dL (74-106); Magnesium 1.4 mg/dL (1.6-2.6); Osmolality,Calculated 283 (275-295); Phosphorous 2.3 mg/dL (2.4-5.1); Potassium 4.3 mMol/L (3.4-5.1); Sodium 141 mMol/L (136-145); Total Protein 5.4 gm/dL (5.7-8.2); eGFR 32 See Note
[2024-12-24] MEDS: HEPARIN SOD INJ 5000 UNIT/ML VIAL SC ×3 (06:03→20:59)
[2024-12-24] MEDS: ACETAMINOPHEN 325 MG TABLET 650 MG PO ×2 (06:05→15:43)
[2024-12-24] MEDS: SODIUM CHLORIDE 0.9% 1000 ML 1,000 ML 125 ML IV (06:08)
[2024-12-24 08:11] LABS: Iron 70 mcg/dL (65-175); Percent Iron Saturation 33 % (20-55); Total Iron Binding Capacity 209 mcg/dL (250-425); Unsaturated Iron Binding 139 (225-295)
[2024-12-24] MEDS: cefTRIAXone/D5w 2gm 2 GM/50 ML BAG IV (08:37)
[2024-12-24] MEDS: GABAPENTIN 100 MG, GABAPENTIN 300 MG 400 MG PO ×2 (08:38→21:00)
[2024-12-24] MEDS: PANTOPRAZOLE 40 MG TABLET PO (08:38)
[2024-12-24 08:39] LABS: Vitamin B12 245 pg/mL (211-911)
[2024-12-24] MEDS: VANCOMYCIN/NS 750 MG IVPB 750 MG/150 ML BAG 120 MG IV (09:43)
--- NOTE | 2024-12-24 10:52 | PD.RESPRO ---
Documentation for date of: 12/24/24 Subjective Subjective Interval history: Patient seen and examined in [facility] today. There were no major overnight events and patient feels well this morning. BP is stable and actually high now. Creatinine is improving steadily and it was 2.2 today. 12/24/2024 examined at bedside. Feeling well today. Reports no new symptoms or worsening of symptoms. Renal function stable, CR 2.2, BUN 19, EGFR 32. Electrolytes WNL. No leukocytosis. Hgb 9.9. BP 164/88. Will discontinue fluid after last bag finished. Continue to encourage oral hydration. Exam Vital Signs Temp Pulse Resp BP Pulse Ox O2 Del Method 97.2 F 70 18 164/88 H 98 Room Air 12/24/24 04:00 12/24/24 07:42 12/24/24 07:42 12/24/24 08:00 12/24/24 04:00 12/24/24 04:00 Narrative Exam Constitutional: Well nourished and in no acute distress CVS: RRR, S1 and S2 present, no murmurs, rubs or gallops . RESP: CTAB, no SOB, no rales, rhonchi or wheezing. No respiratory Distress GI: Normal BS, Nontender/Nondistended. MSK: Full range of motion, No trauma or deformities or masses. Skin: Warm to touch, Dry. No rashes or lesions. 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 Sensation grossly intact. Psych: (AAO) x3 . Appropriate mood and affect. Objective Labs 12/24/24 04:32 12/24/24 04:32 Labs: Laboratory Results - last 24 hr 12/24/24 04:32 WBC 4.9 RBC 3.40 L Hgb 9.9 L Hct 30.5 L MCV 90 MCH 29.1 MCHC 32.5 RDW Std Deviation 43.8 Plt Count 149 D Neut % (Auto) 57 Lymph % (Auto) 21 [place] % (Auto) 11 Eos % (Auto) 10 Baso % (Auto) 0 Neut # (Auto) 2.8 Lymph # (Auto) 1.0 [place] # (Auto) 0.6 Eos # (Auto) 0.5 Baso # (Auto) 0.0 Immature Gran # (Auto) 0.01 H Absolute Nucleated RBC 0.00 Immature Gran % 0 Nucleated RBC % 0 Sodium 141 Potassium 4.3 Chloride 112 H Carbon Dioxide 21.7 Anion Gap 7 BUN 19 Creatinine 2.2 H Estim Creat Clear Calc 34.9 L eGFR 32 L BUN/Creatinine Ratio 9 L Glucose 102 Calculated Osmolality 283 Calcium 9.0 Corrected Calcium 9.5 Phosphorus 2.3 L Magnesium 1.4 L Iron 70 TIBC 209 L Iron Saturation 33 Unsat Iron Binding 139 L Total Bilirubin 0.3 AST 20 ALT 15 Alkaline Phosphatase 75 Total Protein 5.4 L Albumin 3.4 Globulin 2.0 L Albumin/Globulin Ratio 1.7 Vitamin B12 245 Quality Measures Quality Measures VTE prophylaxis Advance care planning discussed with:: patient Assessment & Plan Assessment Current Active Medications: Generic Name Dose Route Start Last Admin Trade Name Freq PRN Reason Stop Dose Admin Acetaminophen 650 mg 12/21/24 22:44 12/24/24 06:05 Acetaminophen 325 Mg Tablet PO 01/20/25 22:43 650 mg Q6H PRN Administration Fever >100.3 or pain 1-3 Buprenorphine- 0 ea 12/22/24 21:00 12/24/24 08:38 Naloxone 4-1 Mg Film SL 01/21/25 20:59 1 film BID VIJAY Administration Gabapentin 100 mg/ Gabapentin 400 mg 12/22/24 21:00 12/24/24 08:38 300 mg PO 01/21/25 20:59 400 mg BID VIJAY Administration Heparin Sodium (Porcine) 5,000 unit 12/22/24 06:00 12/24/24 06:03 Heparin Sod Inj 5000 Unit/Ml Vial SC 01/05/25 05:59 5,000 unit Q8HR VIJAY Administration Ceftriaxone Sodium/Dextrose 2 gm in 50 mls @ 100 mls/hr 12/22/24 12:15 12/24/24 08:37 Rocephin/D5w 2gm IV 12/29/24 12:01 100 mls/hr QDAY VIJAY Administration Vancomycin/Sodium Chloride 750 mg in 150 mls @ 120 mls/hr 12/23/24 10:00 12/24/24 09:43 Vancomycin/Ns 750 Mg Ivpb IV 12/30/24 09:59 120 mls/hr Q24H VIJAY Administration Midodrine 10 mg 12/23/24 21:06 12/24/24 06:02 Midodrine 5 Mg Tablet PO 01/21/25 13:59 Not Given TID VIJAY Ondansetron HCl 4 mg 12/21/24 22:44 12/22/24 17:25 Ondansetron Inj 2 Mg/Ml Inj 2 Ml IV 01/20/25 22:43 4 mg Q6H PRN Administration NAUSEA OR VOMITING Protocol Pantoprazole Sodium 40 mg 12/22/24 09:00 12/24/24 08:38 Pantoprazole 40 Mg Tablet PO 01/21/25 08:59 40 mg QDAY VIJAY Administration Pharmacy Consult 1 each 12/22/24 12:15 Vancomycin Pharmacy To Dose 1 Each Each IV 01/21/25 12:14 QDAY PRN CONSULT Sennosides 1 tab 12/21/24 22:44 12/23/24 21:15 Senna Tablet PO 01/20/25 22:43 1 tab QDAY PRN Administration constipation Protocol Plan 69-year-old male with previous medical history of hypotension on midodrine, hyperlipidemia, CKD stage III, status post right-sided nephrectomy, status postcardiopulmonary arrest/2023, GERD, chronic neck/back pain, BPH, chronic constipation, depression/anxiety, normocytic anemia that was admitted for syncopal episode Renal function stable and improving. Will discontinue IV fluids, encourage oral hydration. No current episodes of hypotension. #REN on CKD Patient presented with a Cr of 2.9 from baseline of around 1.9 when he was recently discharged Likely pre renal, possible orthostatic changes causing the syncope. Renal function improved with fluids, CR 2.2, BUN 19, EGFR 32. - Can discontinue IV fluids and encourage Oral intake - Hold tamsulosin and consider finasteride for BPH - Avoid nephrotoxic medications - Orthostatic vitals - Continue midodrine 10 mg PO TID - Daily renal Panel #Syncope #History of BPH #History of GERD #Chronic backpain Plan: - As per primary team Thank you for allowing us to be part of the care team for Mr Tang. Thank you for the opportunity to participate in the patient's care. Case was discussed with attending, Dr. Armstrong. Marietta Bailey DO PGYI Attending Provider Attestation/Addendum Patient seen and examined with resident physician Dr. Mcmanus. Note reviewed, agree with findings and recommendations. Well-known to me for many years from CKD clinic. Patient has hypotension for years and has been on midodrine. He is wheelchair-bound posterior spinal fusion. Presented with REN-most likely related to prerenal azotemia versus retention//urosepsis. continue with IV fluids. Recently admitted for similar episode. He has right nephrectomy for nonfunctioning kidney. Will monitor closely. Creatinine improving. Plan of care discussed with at bedside. Echocardiogram showed ejection fraction 55 to 60% with diastolic dysfunction. Head CT negative. Thank you Tosin for allowing me to participate in the care of Mr. Tang
--- NOTE | 2024-12-24 12:35 | CHAP ---
Patient was visited by the Spiritual Care Volunteer who prayed for them. (Volunteer was in the hospital from 11:00-12:35.)
[2024-12-24] MEDS: SENNA TABLET 1 TAB PO (13:42)
--- NOTE | 2024-12-24 14:55 | ESPR_ITS ---
<Statement entered by Tosin Ford MD - 12/31/24 08:55> I reviewed above note and agree with findings and plans. I have also personally examined the patient with medicine team and went over assessment and plan with medical team including internet media planner and resident physician. <Statement entered by Virginia Lopez MD - 12/24/24 15:09> No acute overnight events. Labs and vitals were reviewed, hemoglobin is 9.9, hematocrit 30, patient is having good urine output, creatinine is 2.2, BUN is 19. Cardiology evaluated the patient, recommended to continue midodrine, pending orthostatic vitals. Nephrology is on board, will follow-up with recommendations. Patient still ceftriaxone and vancomycin, pending final blood culture results. I personally saw and examined the patient and discussed the assessment and plan with the entire medicine team, including my attending Dr. Ford, Virginia Lopez M.D. PGY-2 Disclaimer: Despite multiple revisions, due to the dictation software being used, the document bellow may not be free of grammatical errors including phonetic/typographic errors. However, this does not deter from our commitment to providing health care in the patient's best interest in mind. . Documentation for date of: 12/24/24 Subjective Subjective Interval history: No overnight events. Patient seen examined at bedside, resting comfortably. Patient complained of burning epigastric pain, mild, that started after eating dinner last night, improved with Protonix this morning. Otherwise patient feels well, denies fever, chills, shortness of breath, chest pain, nausea, vomiting. Initial GPC blood cultures unable to speciate. Will continue with empiric treatment. Repeat cultures negative. Exam Vital Signs Temp Pulse Resp BP Pulse Ox O2 Del Method 97.4 F 79 18 123/71 98 Room Air 12/24/24 12:00 12/24/24 12:00 12/24/24 12:00 12/24/24 12:00 12/24/24 12:12/24/24 12:00 Narrative Exam PE: Gen: Well-developed and well-nourished. HEENT: NCAT, PERRLA, EOMI, MMM, anicteric conjunctivae. CVS: normal S1 and S2. RRR. No M/R/G. Resp: CTA B/L. No rhonchi, rales, crackles or wheezing. Abd: soft, non-tender, non-distended. MSK: Good ROM in BUE & BLE. No edema or rash. Neuro: CN II-XII grossly intact. Strength 5/5 in BUE & 4/5 BLE. Alert and oriented x3. Psych: appropriate mood and affect. Objective Labs 12/24/24 04:32 12/24/24 04:32 Labs: Laboratory Results - last 24 hr 12/24/24 04:32 WBC 4.9 RBC 3.40 L Hgb 9.9 L Hct 30.5 L MCV 90 MCH 29.1 MCHC 32.5 RDW Std Deviation 43.8 Plt Count 149 D Neut % (Auto) 57 Lymph % (Auto) 21 [place] % (Auto) 11 Eos % (Auto) 10 Baso % (Auto) 0 Neut # (Auto) 2.8 Lymph # (Auto) 1.0 [place] # (Auto) 0.6 Eos # (Auto) 0.5 Baso # (Auto) 0.0 Immature Gran # (Auto) 0.01 H Absolute Nucleated RBC 0.00 Immature Gran % 0 Nucleated RBC % 0 Sodium 141 Potassium 4.3 Chloride 112 H Carbon Dioxide 21.7 Anion Gap 7 BUN 19 Creatinine 2.2 H Estim Creat Clear Calc 34.9 L eGFR 32 L BUN/Creatinine Ratio 9 L Glucose 102 Calculated Osmolality 283 Calcium 9.0 Corrected Calcium 9.5 Phosphorus 2.3 L Magnesium 1.4 L Iron 70 TIBC 209 L Iron Saturation 33 Unsat Iron Binding 139 L Total Bilirubin 0.3 AST 20 ALT 15 Alkaline Phosphatase 75 Total Protein 5.4 L Albumin 3.4 Globulin 2.0 L Albumin/Globulin Ratio 1.7 Vitamin B12 245 Quality Measures Quality Measures VTE prophylaxis Advance care planning discussed with:: patient and spouse Assessment & Plan Assessment Current Active Medications: Generic Name Dose Route Start Last Admin Trade Name Freq PRN Reason Stop Dose Admin Acetaminophen 650 mg 12/21/24 22:44 12/24/24 06:05 Acetaminophen 325 Mg Tablet PO 01/20/25 22:43 650 mg Q6H PRN Administration Fever >100.3 or pain 1-3 Buprenorphine- 0 ea 12/22/24 21:00 12/24/24 08:38 Naloxone 4-1 Mg Film SL 01/21/25 20:59 1 film BID VIJAY Administration Gabapentin 100 mg/ Gabapentin 400 mg 12/22/24 21:00 12/24/24 08:38 300 mg PO 01/21/25 20:59 400 mg BID VIJAY Administration Heparin Sodium (Porcine) 5,000 unit 12/22/24 06:00 12/24/24 13:38 Heparin Sod Inj 5000 Unit/Ml Vial SC 01/05/25 05:59 5,000 unit Q8HR VIJAY Administration Ceftriaxone Sodium/Dextrose 2 gm in 50 mls @ 100 mls/hr 12/22/24 12:15 12/24/24 08:37 Rocephin/D5w 2gm IV 12/29/24 12:01 100 mls/hr QDAY VIJAY Administration Vancomycin/Sodium Chloride 750 mg in 150 mls @ 120 mls/hr 12/23/24 10:00 12/24/24 09:43 Vancomycin/Ns 750 Mg Ivpb IV 12/30/24 09:59 120 mls/hr Q24H VIJAY Administration Midodrine 10 mg 12/23/24 21:06 12/24/24 13:47 Midodrine 5 Mg Tablet PO 01/21/25 13:59 Not Given TID VIJAY Ondansetron HCl 4 mg 12/21/24 22:44 12/22/24 17:25 Ondansetron Inj 2 Mg/Ml Inj 2 Ml IV 01/20/25 22:43 4 mg Q6H PRN Administration NAUSEA OR VOMITING Protocol Pantoprazole Sodium 40 mg 12/22/24 09:00 12/24/24 08:38 Pantoprazole 40 Mg Tablet PO 01/21/25 08:59 40 mg QDAY VIJAY Administration Pharmacy Consult 1 each 12/22/24 12:15 Vancomycin Pharmacy To Dose 1 Each Each IV 01/21/25 12:14 QDAY PRN CONSULT Sennosides 1 tab 12/21/24 22:44 12/24/24 13:42 Senna Tablet PO 01/20/25 22:43 1 tab QDAY PRN Administration constipation Protocol Plan 69-year-old male with previous medical history of hypertension, hyperlipidemia, CKD stage III, status post right-sided nephrectomy, status postcardiopulmonary arrest/2023, GERD, chronic neck/back pain, BPH, chronic constipation, depression/anxiety, normocytic anemia who was brought to the ED by the ambulance on 12/21/2024 due to altered mental status, admitted due to syncope episode and REN on CKD. #Orthostatic syncope, recurrent Patient had a episode of syncope when moving from wheelchair to bed. Patient had frequent presenting syncope upon standing the past, typically associated with hypotension. On presentation patient blood pressure 69/50, improved with IVF. Echo taken, shows ejection fraction 55 to 60%, grade 1 diastolic dysfunction. Patient noted to have inverted T waves on EKGs, not present on EKGs from 1 year ago. - Orthostastic vitals - Fall precautions - Cardiology consult, appreciate recommendations - Nephrology consult, appreciate recommendations - Resume home meds: Midodrine 10 mg p.o. 3 times daily - Patient to follow-up with cardiology and nephrology upon discharge #Bacteremia, GPC #Sepsis ruled out Patient blood cultures taken on admission, grew GPC 2/2 bottles. Pending speciation. Patient afebrile, Pro-Aashish negative. No leukocytosis. Empiric treatment initiated. Repeat blood cultures negative. Initial blood cultures unable to speciate, will continue empiric treatment. Plan to discharge with doxycycline and Augmentin. - Ceftriaxone 2 g IV daily (started 12/22) - Vancomycin pharmacy dosing (started 12/22) #REN on CKD (improving) Creatinine 2.9 (previously 1.9 on 12/16/24), EGFR 23, glucose 115. REN improving back towards baseline. Encouraged oral hydration. - Daily CMP - Avoid nephrotoxic agents - Nephrology consulted, appreciate recommendations - Replete electrolytes as necessary #History of GERD Patient reports epigastric burning. - Pantoprazole 40 mg qday #Chronic backpain Patient history of chronic back pain. - Resumed home gabapentin, down titrated to 400 mg p.o. twice daily - Home buprenorphine-naloxone x1, will cautiously titrate due to syncope FEN: renal diet DVT prophylaxis: heparin sc GI prophylaxis: pantoprazole Lines: Peripheral IV CODE STATUS: Full code Plan of care discussed with senior resident Dr. Lopez PGY?[address] Ford. Alban Bush MD PGY?1
--- NOTE | 2024-12-24 20:03 | PC.NURSE ---
Pt requesting medication to help him sleep, spoke with Dr. Alf KUNZ to input orders.
[2024-12-24] MEDS: MELATONIN 3 MG TABLET PO (21:00)
[2024-12-25] VITALS (9 sets, daily range): BP systolic 107–172; BP diastolic 82–99; PULSE 62–134; RESP 17–18; TEMP 36.2–36.6; O2SAT 97–98
[2024-12-25] MEDS: HEPARIN SOD INJ 5000 UNIT/ML VIAL SC (05:26)
[2024-12-25] MEDS: GABAPENTIN 100 MG, GABAPENTIN 300 MG 400 MG PO (08:27)
[2024-12-25] MEDS: cefTRIAXone/D5w 2gm 2 GM/50 ML BAG IV (08:27)
[2024-12-25] MEDS: PANTOPRAZOLE 40 MG TABLET PO (08:28)
[2024-12-25 09:21] LABS: Basophils % (Auto) 0 % (0-2.5); Eosinophils # (Auto) 0.4 Thou/mm3 (0.0-0.5); Eosinophils % (Auto) 7 % (0-10); Hematocrit 32.7 % (41.0-53.0); Hemoglobin 10.9 g/dL (13.5-16.0); Immature Granulocytes % (Auto) 0 % (0-0); Immature Granulocytes Auto 0.02 Thou/mm3 (0.00-0.00); Lymphocytes # (Auto) 0.9 Thou/mm3 (1.0-4.8); Lymphocytes % (Auto) 15 % (10-50); Mean Corpuscular HGB Conc 33.3 g/dl (31.0-37.0); Mean Corpuscular Hemoglobin 29.9 pg (25.0-35.0); Mean Corpuscular Volume 90 fL (80-100); Monocytes # (Auto) 0.6 Thou/mm3 (0.0-0.8); Monocytes % (Auto) 10 % (0-12); Neutrophils # (Auto) 4.2 Thou/mm3 (1.8-7.7); Neutrophils % (Auto) 68 % (37-80); Nucleated Red Blood Cell % 0 /100 WBC (0); Platelet Count 148 Thou/mm3 (140-440); RDW Standard Deviation 43.9 fL (35.1-43.9); Red Blood Count 3.64 Miln/mm3 (4.50-5.90); White Blood Count 6.2 Thou/mm3 (3.8-10.6)
[2024-12-25 09:25] LABS: Alanine Aminotransferase 12 U/L (10-49); Albumin, Serum 3.6 gm/dL (3.4-4.8); Albumin/Globulin Ratio 1.7 (1.2-2.2); Alkaline Phosphatase 89 U/L (46-116); Anion Gap 6 (7-16); Aspartate Amino Transferase 17 U/L (0-34); BUN/Creatinine Ratio 9 Ratio (12-20); Bilirubin,Total 0.4 mg/dL (0.3-1.2); Blood Urea Nitrogen 19 mg/dL (9-23); Calcium 8.9 mg/dL (8.3-10.6); Calcium (Corrected) 9.2 mg/dL (8.5-10.1); Carbon Dioxide 23.6 mMol/L (20.0-31.0); Chloride 111 mMol/L (98-107); Creatinine (Component) 2.1 mg/dL (0.6-1.3); Globulin 2.1 gm/dL (2.3-3.5); Glucose 124 mg/dL (74-106); Osmolality,Calculated 284 (275-295); Potassium 4.4 mMol/L (3.4-5.1); Sodium 141 mMol/L (136-145); Total Protein 5.7 gm/dL (5.7-8.2); Vancomycin,Trough 16.6 mcg/mL (5.0-10.0); eGFR 33 See Note
--- NOTE | 2024-12-25 09:45 | PC.NURSE ---
Notified MD Bauman on pts current orthostatic vs. Per MD will review no new orders at this time.
--- NOTE | 2024-12-25 14:50 | ESPR_ITS ---
Documentation for date of: 12/25/24 Subjective Subjective Interval history: Mr Tang is a 69-year-old male with previous medical history of hypotension on midodrine, hyperlipidemia, CKD stage III, status post right-sided nephrectomy, status postcardiopulmonary arrest/2023, GERD, chronic neck/back pain, BPH, chronic constipation, depression/anxiety, normocytic anemia, that presented last evening after an episode of loss of consciousness. Patient states that that he was transferring from the bathroom to the bed when he lost consciousness. He did not experience any precipitating factors such as palpitations, tunnel vision, diaphoresis, dizziness, chest pain, sob or blurry vision. Patient also denies any fevers, cough, burning in urine, diarrhea or constipation. He denies any loss of continence, shaking or tongue biting. Patient states that he has been urinating a lot since previous discharge and he states that he was doing fine prior to the episode. He has been taking flomax. In the ED CT scan of the head was negative for any pathology. Patient was initially hypotensive on presentation and now his BP has been stabilized in 120s/80s after 2.5 L of fluid Creatinine was 2.9 on presentation and improved to 2.5 this morning Electrolytes are grossly within normal limits Patient seen and examined in [facility] today. There were no major overnight events and patient feels well this morning. BP is stable and actually high now. Creatinine is improving steadily and it was 2.2 today. 12/24/2024 examined at bedside. Feeling well today. Reports no new symptoms or worsening of symptoms. Renal function stable, CR 2.2, BUN 19, EGFR 32. Electrolytes WNL. No leukocytosis. Hgb 9.9. BP 164/88. Will discontinue fluid after last bag finished. Continue to encourage oral hydration. 12/25/2024 examined at bedside. Appears and feels well today. Denies fever, chills, headaches, chest pain, sob, cough, GI or urinary symptoms. Renal function improving, CR 2.0, BUN 19, EGFR 33. WBC 6.2, Hgb 10.9. 24H urine output 2.2 L. Appears stable overall. No further intervention from nephrology at this time. Nephrology will sign off. Consult as needed. Exam Vital Signs Temp Pulse Resp BP Pulse Ox O2 Del Method 97.5 F 73 17 165/95 H 98 Room Air 12/25/24 08:00 12/25/24 12:00 12/25/24 08:00 12/25/24 12:00 12/25/24 08:00 12/25/24 08:00 Narrative Exam Constitutional: Well nourished and in no acute distress CVS: RRR, S1 and S2 present, no murmurs, rubs or gallops . RESP: CTAB, no SOB, no rales, rhonchi or wheezing. No respiratory Distress GI: Normal BS, Nontender/Nondistended. MSK: Full range of motion, No trauma or deformities or masses. Skin: Warm to touch, Dry. No rashes or lesions. 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 Sensation grossly intact. Psych: (AAO) x3 . Appropriate mood and affect. Objective Labs 12/25/24 08:47 12/25/24 08:47 Labs: Laboratory Results - last 24 hr 12/25/24 08:47 WBC 6.2 RBC 3.64 L Hgb 10.9 L Hct 32.7 L MCV 90 MCH 29.9 MCHC 33.3 RDW Std Deviation 43.9 Plt Count 148 Neut % (Auto) 68 Lymph % (Auto) 15 [place] % (Auto) 10 Eos % (Auto) 7 Baso % (Auto) 0 Neut # (Auto) 4.2 Lymph # (Auto) 0.9 L [place] # (Auto) 0.6 Eos # (Auto) 0.4 Baso # (Auto) 0.0 Immature Gran # (Auto) 0.02 H Absolute Nucleated RBC 0.00 Immature Gran % 0 Nucleated RBC % 0 Sodium 141 Potassium 4.4 Chloride 111 H Carbon Dioxide 23.6 Anion Gap 6 L BUN 19 Creatinine 2.1 H Estim Creat Clear Calc 36.0 L eGFR 33 L BUN/Creatinine Ratio 9 L Glucose 124 H Calculated Osmolality 284 Calcium 8.9 Corrected Calcium 9.2 Total Bilirubin 0.4 AST 17 ALT 12 Alkaline Phosphatase 89 Total Protein 5.7 Albumin 3.6 Globulin 2.1 L Albumin/Globulin Ratio 1.7 Vancomycin Trough 16.6 H Quality Measures Quality Measures VTE prophylaxis Advance care planning discussed with:: patient Assessment & Plan Assessment Current Active Medications: Generic Name Dose Route Start Last Admin Trade Name Freq PRN Reason Stop Dose Admin Acetaminophen 650 mg 12/21/24 22:44 12/24/24 15:43 Acetaminophen 325 Mg Tablet PO 01/20/25 22:43 650 mg Q6H PRN Administration Fever >100.3 or pain 1-3 Buprenorphine- 0 ea 12/22/24 21:00 12/25/24 08:27 Naloxone 4-1 Mg Film SL 01/21/25 20:59 1 film BID VIJAY Administration Gabapentin 100 mg/ Gabapentin 400 mg 12/22/24 21:00 12/25/24 08:27 300 mg PO 01/21/25 20:59 400 mg BID VIJAY Administration Heparin Sodium (Porcine) 5,000 unit 12/22/24 06:00 12/25/24 05:26 Heparin Sod Inj 5000 Unit/Ml Vial SC 01/05/25 05:59 5,000 unit Q8HR VIJAY Administration Ceftriaxone Sodium/Dextrose 2 gm in 50 mls @ 100 mls/hr 12/22/24 12:15 12/25/24 08:27 Rocephin/D5w 2gm IV 12/29/24 12:01 100 mls/hr QDAY VIJAY Administration Vancomycin/Sodium Chloride 750 mg in 150 mls @ 120 mls/hr 12/23/24 10:00 12/25/24 14:43 Vancomycin/Ns 750 Mg Ivpb IV 12/30/24 09:59 Not Given Q24H VIJAY Melatonin 3 mg 12/24/24 20:00 12/24/24 21:00 Melatonin 3 Mg Tablet PO 01/23/25 19:59 3 mg HS VIJAY Administration Midodrine 10 mg 12/23/24 21:06 12/25/24 05:56 Midodrine 5 Mg Tablet PO 01/21/25 13:59 Not Given TID [facility] Ondansetron HCl 4 mg 12/21/24 22:44 12/22/24 17:25 Ondansetron Inj 2 Mg/Ml Inj 2 Ml IV 01/20/25 22:43 4 mg Q6H PRN Administration NAUSEA OR VOMITING Protocol Pantoprazole Sodium 40 mg 12/22/24 09:00 12/25/24 08:28 Pantoprazole 40 Mg Tablet PO 01/21/25 08:59 40 mg QDAY VIJAY Administration Pharmacy Consult 1 each 12/22/24 12:15 Vancomycin Pharmacy To Dose 1 Each Each IV 01/21/25 12:14 QDAY PRN CONSULT Sennosides 1 tab 12/21/24 22:44 12/24/24 13:42 Senna Tablet PO 01/20/25 22:43 1 tab QDAY PRN Administration constipation Protocol Plan 69-year-old male with previous medical history of hypotension on midodrine, hyperlipidemia, CKD stage III, status post right-sided nephrectomy, status postcardiopulmonary arrest/2023, GERD, chronic neck/back pain, BPH, chronic constipation, depression/anxiety, normocytic anemia that was admitted for syncopal episode #REN on CKD Patient presented with a Cr of 2.9 from baseline of around 1.9 when he was recently discharged Likely pre renal, possible orthostatic changes causing the syncope. Renal function improving, CR 2.0, BUN 19, EGFR 33. WBC 6.2, Hgb 10.9. 24H urine output 2.2 L. Appears stable overall. No further intervention from nephrology at this time. Nephrology will sign off. Consult as needed. - Encourage Oral intake - Hold tamsulosin and consider finasteride for BPH - Avoid nephrotoxic medications - Orthostatic vitals - Continue midodrine 10 mg PO TID - Daily renal Panel #Syncope #History of BPH #History of GERD #Chronic backpain Plan: - As per primary team Thank you for allowing us to be part of the care team for Mr Tang. Thank you for the opportunity to participate in the patient's care. Case was discussed with attending, Dr. Armstrong. Marietta Bailey DO PGYI Attending Provider Attestation/Addendum Patient seen and examined with resident physician Dr. Mcmanus. Note reviewed, agree with findings and recommendations. Well-known to me for many years from CKD clinic. Patient has hypotension for years and has been on midodrine. He is wheelchair-bound posterior spinal fusion. Presented with REN-most likely related to prerenal azotemia versus retention//urosepsis. continue with IV fluids. Recently admitted for similar episode. He has right nephrectomy for nonfunctioning kidney. Will monitor closely. Creatinine improving. Plan of care discussed with Reta at bedside. Echocardiogram showed ejection fraction 55 to 60% with diastolic dysfunction. Head CT negative. Thank you Tosin for allowing me to participate in the care of Mr. Tang
--- NOTE | 2024-12-25 15:01 | ESDS_ITS ---
<Statement entered by Tosin Ford MD - 12/31/24 08:55> I reviewed above note and agree with findings and plans. I have also personally examined the patient with medicine team and went over assessment and plan with medical team including biology internship and resident physician. Planned Discharge Date 12/25/24 DS: Providers Provider Date of admission: 12/22/24 14:57 Primary care physician: Yury Russell MD Admitting Provider: Alejandro Hatch MD Attending Provider on Admission: Tosin Ford MD Consults: 12/22/24 11:47 Consult to Nephrology Routine Comment: Recurrent syncope w/ orthostatic hypotension, CKD Consulting Provider: Shameka Armstrong 12/22/24 13:29 Consult to Cardiology Routine Comment: Recurrent syncope Consulting Provider: Patricia Horn 12/22/24 16:36 Referral Physical Therapy Routine Comment: Physician Instructions: Attending Provider on DC: Tosin Ford MD Discharging Provider: Alban Bush MD DS: Diagnosis Problem List Completed Was Problem List Reviewed/Reconciled?: Yes Hospital Course Hospital Course Hospital course: The patient is a 69-year-old male with previous medical history of hypertension, hyperlipidemia, CKD stage III, status post right-sided nephrectomy, status postcardiopulmonary arrest/2023, GERD, chronic neck/back pain, BPH, chronic constipation, depression/anxiety, normocytic anemia who was brought to the ED by the ambulance on 12/21/2024 due to altered mental status. Patient was admitted due to syncope episode and REN on CKD. Cardiology nephrology consulted for workup of syncope. Patient had to be severely hypotensive during stay, treated with midodrine and IV fluids improvement of REN and baseline blood pressure. Orthostatic vitals positive for significant drop when changing from sitting to standing, echo negative. Patient cleared for discharge from cardiology and nephrology perspective. Patient medically stable and cleared for discharge. Discharge plan: Following medications have been STOPPED: - Tamsulosin, causes hypotension Start Finasteride daily, follow up with PCP for refill Please continue all other medications as previously prescribed. Please follow-up with your primary doctor within 1-2 weeks. Please seek referral to Dr. Armstrong, nephrology, for further management of orthostatic hypotension. Please seek referral for cardiology for further workup, including Holter monitor. Return to the ED if you develop new or worsening symptoms. Avoid quick movements, when transitioning from sitting to standing move slowly and carefully. Diagnoses: #Orthostatic syncope, recurrent #Bacteremia, GPC #Sepsis ruled out #REN on CKD (improving) #History of GERD #Chronic backpain Plan of care discussed with attending Dr. Ford. Alban Bush MD PGY?1 Status at Discharge Overall status at discharge: patient is back to baseline Time Spent with Patient Time attestation: Total time spent providing and/or coordinating discharge services: Time spent: Greater than 30 minutes Exam Vital Signs Temp Pulse Resp BP Pulse Ox O2 Del Method 97.5 F 73 17 165/95 H 98 Room Air 12/25/24 08:00 12/25/24 12:00 12/25/24 08:00 12/25/24 12:00 12/25/24 08:00 12/25/24 08:00 Narrative Exam PE: Gen: Well-developed and well-nourished. HEENT: NCAT, PERRLA, EOMI, MMM, anicteric conjunctivae. CVS: normal S1 and S2. RRR. No M/R/G. Resp: CTA B/L. No rhonchi, rales, crackles or wheezing. Abd: soft, non-tender, non-distended. MSK: Good ROM in BUE & BLE. No edema or rash. Neuro: CN II-XII grossly intact. Strength 5/5 in BUE & 4/5 BLE. Alert and oriented x3. Psych: appropriate mood and affect. Discharge Plan Plan Patient Disposition: HOME (Self Care) Patient condition on transfer: Stable Care Plan Goals: Following medications have been STOPPED: - Tamsulosin, causes hypotension Start Finasteride daily, follow up with PCP for refill Please continue all other medications as previously prescribed. Please follow-up with your primary doctor within 1-2 weeks. Please seek referral to Dr. Armstrong, nephrology, for further management of orthostatic hypotension. Please seek referral for cardiology for further workup, including Holter monitor. Return to the ED if you develop new or worsening symptoms. Avoid quick movements, when transitioning from sitting to standing move slowly and carefully. Prescriptions/Referrals Prescriptions/Med Rec: New finasteride [Propecia] 1 mg tablet 1 mg PO QDAY 14 Days Qty: 14 0RF Continued gabapentin 400 mg Capsule 400 mg PO TID atorvastatin 40 mg tablet 40 mg PO QDAY Patient Comments: TAKE 1 TABLET BY MOUTH EVERY DAY FOR 90 DAYS amitriptyline 10 mg tablet 10 mg PO .qdayhs Patient Comments: TAKE 1 TABLET BY MOUTH EVERY DAY AT BEDTIME FOR 30 DAYS folic acid 1 mg tablet 1 mg PO QDAY Patient Comments: TAKE 1 TABLET BY MOUTH EVERY DAY midodrine 10 mg tablet 10 mg PO TID Patient Comments: TAKE 1 TABLET BY MOUTH THREE TIMES A DAY buprenorphine-naloxone 4-1 mg film 1 film BUCCAL BID Patient Comments: DISSOLVE 1 FILM UNDER THE TONGUE TWICE A DAY thiamine HCl (vitamin B1) 100 mg tablet 100 mg PO QDAY Patient Comments: TAKE 1 TABLET BY MOUTH EVERY DAY lidocaine 5 % adhesive patch,medicated 1 patch TOPICAL Q24H Patient Comments: APPLY 1 PATCH DAILY EXTERNALLY AND REMOVE AFTER 12 HOURS FOR 30 DAYS Discontinued tamsulosin 0.4 mg Capsule 0.4 mg PO QDAY Qty: 30 1RF Referrals: Yury Russell MD [Primary Care Provider] - Patient/Caregiver Discharge Instructions Discharge Activity: activity as tolerated Education Materials: Controlling High Blood Pressure, What Is Syncope?, Causes of Syncope, Treating Syncope: Prevention, Hypotension Dc, Blood Pressure Check Steps Print Language: German Stand Alone Forms: Lisbeth Award Info., Patient Portal Info Letter Discharge Order Discharge Orders: Discharge (Routine); Ordered 12/25/24 Ordered By: Alban Bush Quality Discharge Quality Measures VTE prophylaxis
--- NOTE | 2024-12-26 16:24 | PC.SS ---
SS discussed medicare information with pt. pt alert and oriented times 4
--- NOTE | 2024-12-26 16:26 | PC.SS ---
Late entry: ss went over medicare information; pt alert and oriented times 4
[2024-12-29 06:47] LABS: Folate, RBC* 898 ng/mL RBC (>280)
== END 2024-12-25 13:07 | disposition home or self-care (01) | DRG 312 ==
LOC: SERX 21:47 → SERHOLD 12-22 06:43 → S3NX 12-22 06:43
PROVIDERS: Emergency Medicine; Student in an Organized Health Care Education/Training Program; Admitting Provider Internal Medicine; Emergency Provider Emergency Medicine; PCP Family Medicine; Visit Provider Internal Medicine
DX: I95.1 Orthostatic hypotension (principal); N17.9 Acute kidney failure, unspecified; N39.0 Urinary tract infection, site not specified; N18.30 Chronic kidney disease, stage 3 unspecified; I12.9 Hypertensive chronic kidney disease with stage 1 through stage 4 chronic kidney disease, or unspecified chronic kidney disease; N40.0 Benign prostatic hyperplasia without lower urinary tract symptoms; E78.5 Hyperlipidemia, unspecified; K21.9 Gastro-esophageal reflux disease without esophagitis; G89.29 Other chronic pain; M54.2 Cervicalgia; F32.A Depression, unspecified; D63.1 Anemia in chronic kidney disease; F41.9 Anxiety disorder, unspecified; Z90.5 Acquired absence of kidney; Z79.899 Other long term (current) drug therapy; M54.50 Low back pain, unspecified; Z86.74 Personal history of sudden cardiac arrest; Z87.440 Personal history of urinary (tract) infections; Z98.1 Arthrodesis status; Z99.3 Dependence on wheelchair
CPT/HCPCS: 36415; 70450; 80053; 80202; 81001; 82607; 82747; 83540; 83550; 83605; 83690; 83735; 83880; 84100; 84145; 84484; 85025; 85610; 85730; 87040; 87081; 87086; 87811; 93005; 93225; 93306; 96360; 96361; 97162; 99285; G0378; J0696; J1643; J2405; J3370; J7030; A9270

== ENCOUNTER 2025-01-05 18:15 | Emergency (ER) | payer MEDICARE, MEDICAID, SELFPAY ==
[2025-01-05 18:17] VITALS: BP 99/64; PULSE 54; RESP 18; TEMP 36.7; O2SAT 98
[2025-01-05 18:18] VITALS: PULSE 55; O2SAT 95
[2025-01-05 18:22] VITALS: BMI 30.4
--- NOTE | 2025-01-05 18:30 | PD.EDSEIZ ---
ED Seizures RME/HPI General Chief Complaint: Seizure Stated Complaint: SEIZURES Time Seen by Provider: 01/05/25 18:25 Arrival date/time: 01/05/25 18:15 Dr. [facility] Main ED Evaluation: Patient is a 69-year-old male with history of seizure disorder, bradycardic episodes, status postcardiac arrest, history hypotension, CKD 3, chronic back pain and orthostatic hypotension who presents to the emergency department via EMS with chief complaint of seizure. Family called EMS because the patient had what they thought was a generalized seizure. When EMS arrived patient had a GCS of 15. No postictal period noted. No tongue bite, no incontinence. Initial blood pressure was in the high 70s systolic and heart rate was at 55. Patient appeared diaphoretic to EMS. Here in the emergency department the patient arrives with normal vital signs, no diaphoresis and no complaints other than his chronic back pain. Patient has a seizure disorder but takes no meds. Patient states he blacked out in his chair and woke up sweating and feels generally weak. He denies any headache, chest pain, shortness of breath or any other associated symptoms. Related Data Home Medications ?Medication ?Instructions ?Recorded ?Confirmed gabapentin 400 mg capsule 400 mg PO TID 01/03/24 12/21/24 amitriptyline 10 mg tablet 10 mg PO .qdayhs 12/14/24 12/21/24 atorvastatin 40 mg tablet 40 mg PO QDAY 12/14/24 12/21/24 buprenorphine 4 mg-naloxone 1 mg 1 film buccal BID 12/14/24 12/21/24 sublingual film folic acid 1 mg tablet 1 mg PO QDAY 12/14/24 12/21/24 lidocaine 5 % topical patch 1 patch topical Q24H 12/14/24 12/21/24 midodrine 10 mg tablet 10 mg PO TID 12/14/24 12/21/24 thiamine HCl (vitamin B1) 100 mg 100 mg PO QDAY 12/14/24 12/21/24 tablet Previous Rx's ?Medication ?Instructions ?Recorded finasteride 1 mg tablet (Propecia) 1 mg PO QDAY 2 weeks #14 tabs 12/25/24 Allergies Allergy/AdvReac Type Severity Reaction Status Date / Time zolpidem AdvReac Mild MAKES ME Verified 01/05/25 21:13 CRAZY Review of Systems Review of Systems Systems Reviewed: All systems reviewed, normal except as documented Past Medical History Past Medical History NEUROLOGIC: Positive Neurological Disorders, Seizures, Peripheral Neuropathy and Spinal Cord Injury; Negative Transient Ischemic Attacks (TIA) or Subdural Hematoma CARDIAC: Positive Cardiac Disorders, Hypercholesterolemia and Hypotension; Negative Congestive Heart Failure, Edema, Cellulitis or Varicose Veins RESPIRATORY: Negative Chronic Obstructive Pulmonary Disease (COPD), Asthma, Tuberculosis or Sleep Apnea GASTROINTESTINAL: Positive Gall Bladder Disease, Gastroesophageal Reflux Disease and Obesity; Negative Gastrointestinal Disorders, Hepatitis or Colorectal Cancer GENITOURINARY: Positive Genitourinary Disorders, Renal Disease, Kidney Stones and Benign Prostatic Hyperplasia; Negative Dialysis or Prostate Cancer REPRODUCTIVE: Negative Testicular Cancer MUSCULOSKELETAL: Positive Musculoskeletal Disorders, Arthritis and Fractures; Negative Bone Cancer or Carpal Tunnel Syndrome ENT: Negative Cataracts or Blind ENDOCRINE: Negative Endocrine Disorders, Diabetes Mellitus Type 1 or Diabetes Mellitus Type 2 HEMATOLOGIC: Positive Blood Disorders and Anemia; Negative Sickle Cell Disease PSYCHO/SOCIAL: Positive Psychiatric Problems, Depression and Anxiety; Negative Recreational Drug Use OTHER HISTORY: Positive Shingles, Falls, Human Immunodeficiency Virus (HIV), Chicken Pox and Mumps; Negative Hospitalization, Autoimmune Disease, Down Syndrome, Developmental Delay, Blood Transfusions, Blood Transfusion Reaction, Anesthesia Reactions, Organ Transplant, Chemotherapy, Radiation Therapy, Hyperbaric Therapy, MRSA, VRSA, Vancomycin-Resistant Enterococci, Measles, Cancer, Colorectal Cancer, Lung Cancer, Prostate Cancer or Testicular Cancer Family History FAMILY HISTORY: Positive Family Cardiac Disorders, Family Cancer and Family Surgery; Negative Family Psychiatric Problems, Family Respiratory Disorders, Family Gastrointestinal Problems or Family Anesthesia Reaction Surgical History SURGICAL: Positive Oral Surgery and Nephrectomy; Negative Cardiac Surgery, Pacemaker, Endocrine Surgery, Ear Surgery, Tympanostomy Tube, Eye Surgery, Nose Surgery, Tonsillectomy, Adenoidectomy, Cochlear Implant, Corneal Transplant, Throat Surgery, Abdominal Surgery, Tracheostomy, Gastric Bypass Surgery, Gastrostomy, Bowel Surgery, Transurethral Resection, Joint Replacement, Amputation, Open Reduction Internal Fixation, Arthroscopy, Neurologic Surgery, Brain Shunt, Vasectomy or Organ Transplant Social History SMOKING STATUS: Never smoker SECOND HAND EXPOSURE: No SUBSTANCE USE: marijuana (Once a day) 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 HEENT: Normocephalic, atraumatic; pupils equal, round, reactive to light; EOMI; mucous membranes pink, moist; oropharynx clear NECK: Supple LUNGS: CTABL; no wheezes, no rales, no rhonchi HEART: Regular rate, regular rhythm; normal S1, S2; no murmurs ABDOMEN: non distended; normal BS; soft, no tenderness, no guarding, no rebound; no masses, no organomegaly, no hernia BACK: no CVA tenderness EXTREMITIES: atraumatic; no edema NEUROLOGIC: awake; alert and oriented x4; cranial nerves II-XII grossly intact; no focal sensory or motor deficits; no facial droop, no slurred speech, no intention tremor, steccato speech, dysmetria or dysdiadochokinesia PSYCHIATRIC: appropriate mood and affect SKIN: warm, dry, normal color; no rashes Course Quality Measures none Orders Category Date Time Status Principal Trainer STAT Care 01/05/25 18:33 Active Continuous Pulse Oximetry ONCE Care 01/05/25 18:33 Completed EKG (ED ONLY) *Do not use* NOW Care 01/05/25 18:33 Completed Insert IV STAT Care 01/05/25 18:33 Active Orthostatic Vitals STAT Care 01/05/25 18:38 Active Seizure precautions NOW Care 01/05/25 18:36 Active EKG (ED Only) Stat Exams 01/05/25 18:33 Draft XR chest 1V portable Stat Exams 01/05/25 18:33 Completed B-Type Natriuretic Peptide Stat Lab 01/05/25 19:19 Completed CBC Stat Lab 01/05/25 19:19 Completed Comprehensive Metabolic Panel Stat Lab 01/05/25 19:19 Completed Lipase Stat Lab 01/05/25 19:19 Completed Magnesium Stat Lab 01/05/25 19:19 Completed Partial Thromboplastin Time Stat Lab 01/05/25 19:19 Completed Prothrombin Time with INR Stat Lab 01/05/25 19:19 Completed Troponin I Stat Lab 01/05/25 19:19 Completed Midodrine [Proamatine] Med 01/05/25 21:07 Discontinued 10 mg PO X1 ONE Sodium Chloride 0.9% 1000 ml [Ns] 1,000 ml Med 01/05/25 18:42 Discontinued IV 999 mls/hr levETIRAcetam INJ [Keppra Inj] Med 01/05/25 18:42 Discontinued 1,500 mg IVP X1 ONE Vital Signs Vital signs: Vital Signs Temperature 98.1 F 01/05/25 18:17 Pulse Rate 54 L 01/05/25 18:17 Respiratory Rate 18 01/05/25 18:17 Blood Pressure 99/64 01/05/25 18:17 Pulse Oximetry (%) 98 01/05/25 18:17 Seizure MDM Narrative MDM Narrative:: 2100: Patient's lying blood pressure is 142/84 with a HR of 62 and sitting blood pressure dropped to 104/70 with a HR of 70. Patient is pending IV fluids at this time. Midodrine ordered. 5: Patient's lying blood pressure is 172/78 with a HR of 60. Patient's sitting blood pressure is 155/82 with a HR of 69 after receiving fluids. Patient feels better and is stable to be discharged home. Patient data External records reviewed:: [facility] previous records (Per chart review, patient was admitted here on 12/21/24 for syncope.) Clinical information provided by:: EMS Social determinants that could affect healthcare access:: none Patient has the following chronic illnesses:: seizures, HLD How is presenting disease/condition affected by chronic disease/condition?: caused by Evaluation data The following diagnostics were reviewed and interpreted by me:: lab results, radiology exam(s) and EKG tracing(s) Lab and/or radiology exams considered but not ordered:: none Interpretation Summary: CBC is normal, Sodium is 131, Creatinine is 2.7 (which is chronic), according to my interpretation. EKG done at 1936, sinus bradycardia, rate of 53, normal axis, no ectopy, inverted T-waves in lead II and avF, no STEMI, according to my interpretation. [facility] Report Signed Patient: NORMAN DONG. Record#: [id number] Birthdate: 1955 Age/Sex: 69 / M Location: [facility] Attending Dr: Ordering Physician: Cem Cook MD Date of Service: 01/05/25 Procedure(s): XR chest 1V portable Accession Number(s): [id number] cc: Justice Russell MD; Sincere Woods MD; Cem Cook MD~ Examination: AP chest single view Technique: AP portable upright chest single view Exam date and time: January 05, 2025 at 2014 hrs. Comparison January 03, 2024 Indications: Chest pain shortness of breath beginning 2 days ago. Findings: Abnormal prominent right mediastinum including right hilar right tracheobronchial right paratracheal region with pneumonia in the right lung and volume loss, which may be obstructive pneumonia secondary to mediastinal tumor Left lung clear Minor prominence cardiac contour. Moderate osteopenia Impression: Recommend CT chest post intravenous contrast follow-up to exclude right mediastinal tumor producing obstructive pneumonia in the right lung Dictated By: Sincere Woods MD Signed By: <Electronically signed by Sincere Woods MD in OV> 01/05/252100 Medications / Prescriptions Medications or Prescriptions considered but not ordered:: none Medication administrations:: Medication Administration History Discontinued Medications Sodium Chloride (Ns) 1,000 mls @ 999 mls/hr IV .Q1H1M ONE Stop: 01/05/25 19:42 Last Infusion: 01/05/25 22:54 Dose: Infused Documented By: Admin: 01/05/25 21:10 Dose: 999 mls/hr Documented By: AM Levetiracetam (Levetiracetam Inj 100 Mg/Ml Vial 5ml) 1,500 mg IVP X1 ONE Stop: 01/05/25 18:43 Last Admin: 01/05/25 21:12 Dose: Not Given Documented By: AM Non-Admin Reason: Cancelled by Provider Midodrine (Midodrine 5 Mg Tablet) 10 mg PO X1 ONE Stop: 01/05/25 21:08 Last Admin: 01/05/25 21:52 Dose: 10 mg Documented By: AM see above Consultations Consultation(s) initiated? (list below): No Diagnosis Seizure Differential Diagnosis: generalized seizure and other (orthostatic hypotension, vasovagal syncope) Most likely diagnosis given after review of the tests above:: see clinical impression below Admission Indicated Admission indicated?: not indicated Admission Request Was there a request for admission?: No Disposition Plan Disposition Plan: Discharge Discharge Attestation Discharge Attestation: The patient and all family members were given an opportunity to ask questions and understood the discharge instructions. Discharge instructions specifically effects, indications for sooner follow up or return to the emergency department, and the expected course of current diagnosis. Patient condition: Stable Discharge Plan Plan Patient Disposition: HOME (Self Care) Disposition Comment: Stable for discharge home Patient condition on transfer: Stable Prescriptions/Referrals Prescriptions/Med Rec: No Action gabapentin 400 mg Capsule 400 mg PO TID atorvastatin 40 mg tablet 40 mg PO QDAY Patient Comments: TAKE 1 TABLET BY MOUTH EVERY DAY FOR 90 DAYS amitriptyline 10 mg tablet 10 mg PO .qdayhs Patient Comments: TAKE 1 TABLET BY MOUTH EVERY DAY AT BEDTIME FOR 30 DAYS folic acid 1 mg tablet 1 mg PO QDAY Patient Comments: TAKE 1 TABLET BY MOUTH EVERY DAY midodrine 10 mg tablet 10 mg PO TID Patient Comments: TAKE 1 TABLET BY MOUTH THREE TIMES A DAY buprenorphine-naloxone 4-1 mg film 1 film BUCCAL BID Patient Comments: DISSOLVE 1 FILM UNDER THE TONGUE TWICE A DAY thiamine HCl (vitamin B1) 100 mg tablet 100 mg PO QDAY Patient Comments: TAKE 1 TABLET BY MOUTH EVERY DAY lidocaine 5 % adhesive patch,medicated 1 patch TOPICAL Q24H Patient Comments: APPLY 1 PATCH DAILY EXTERNALLY AND REMOVE AFTER 12 HOURS FOR 30 DAYS finasteride [Propecia] 1 mg tablet 1 mg PO QDAY 14 Days Qty: 14 0RF Referrals: Justice Russell MD [Primary Care Provider] - In 1 week Patricia Horn MD [Physician] - In 1 week Problem List Clinical Impression: Orthostatic hypotension, Vasovagal episode Patient/Caregiver Discharge Instructions Discharge Activity: activity as tolerated Education Materials: Understanding Vasovagal Syncope, Orthostatic Hypotension Additional Instructions: Please return to the emergency department if you have any further medical problems and we will help you. Otherwise you should follow-up with your primary care doctor within the next several days I have given you the contact information for Dr. Horn. He is our industrial relations specialist on-call for our ER. Please call his office and make a follow-up appointment Print Language: Chinese Stand Alone Forms: Lisbeth Award Info., Patient Portal Info Letter
--- NOTE | 2025-01-05 18:33 | XR_ITS ---
Examination: AP chest single view Technique: AP portable upright chest single view Exam date and time: January 05, 2025 at 2014 hrs. Comparison January 03, 2024 Indications: Chest pain shortness of breath beginning 2 days ago. Findings: Abnormal prominent right mediastinum including right hilar right tracheobronchial right paratracheal region with pneumonia in the right lung and volume loss, which may be obstructive pneumonia secondary to mediastinal tumor Left lung clear Minor prominence cardiac contour. Moderate osteopenia Impression: Recommend CT chest post intravenous contrast follow-up to exclude right mediastinal tumor producing obstructive pneumonia in the right lung
--- NOTE | 2025-01-05 18:33 | EKG_ITS ---
[facility] Test Date: 2025-01-05 Pat Name: NORMAN DONG Department: Room: - Gender: Male [employer] Administrator: : 1955 Requested By: Cem Li Order Number: [id number] Reading MD: Cem Li Measurements Intervals [place] Rate: 53 P: 25 LA: 120 QRS: 11 QRSD: 91 T: 228 QT: 489 QTc: 461 Interpretive Statements SINUS BRADYCARDIA ST DEVIATION AND MODERATE T-WAVE ABNORMALITY, CONSIDER INFERIOR ISCHEMIA [-0.1+ mV T-WAVE IN II/aVF] Compared to ECG 12/21/2024 13:20:38 Sinus rhythm no longer present T-wave abnormality still present Possible ischemia still present /store/S0/[id number]/[id number]
[2025-01-05 19:30] LABS: Basophils % (Auto) 1 % (0-2.5); Eosinophils # (Auto) 0.5 Thou/mm3 (0.0-0.5); Eosinophils % (Auto) 8 % (0-10); Hematocrit 31.9 % (41.0-53.0); Hemoglobin 10.6 g/dL (13.5-16.0); Immature Granulocytes % (Auto) 1 % (0-0); Immature Granulocytes Auto 0.04 Thou/mm3 (0.00-0.00); Lymphocytes # (Auto) 0.9 Thou/mm3 (1.0-4.8); Lymphocytes % (Auto) 15 % (10-50); Mean Corpuscular HGB Conc 33.2 g/dl (31.0-37.0); Mean Corpuscular Volume 87 fL (80-100); Monocytes # (Auto) 0.6 Thou/mm3 (0.0-0.8); Monocytes % (Auto) 10 % (0-12); Neutrophils # (Auto) 4.2 Thou/mm3 (1.8-7.7); Neutrophils % (Auto) 66 % (37-80); Nucleated Red Blood Cell % 0 /100 WBC (0); Platelet Count 175 Thou/mm3 (140-440); RDW Standard Deviation 41.4 fL (35.1-43.9); Red Blood Count 3.65 Miln/mm3 (4.50-5.90); White Blood Count 6.3 Thou/mm3 (3.8-10.6)
[2025-01-05 19:47] LABS: INR 1.1 (0.9-1.3); Partial Thromboplastin Time 26.8 Seconds (22.0-36.0); Prothrombin Time 11.9 Seconds (9.0-12.2)
[2025-01-05 19:50] LABS: B-Type Natriuretic Peptide 107 pg/mL (0-100)
[2025-01-05 19:52] LABS: Alanine Aminotransferase 10 U/L (10-49); Albumin, Serum 3.8 gm/dL (3.4-4.8); Albumin/Globulin Ratio 1.7 (1.2-2.2); Alkaline Phosphatase 97 U/L (46-116); Anion Gap 7 (7-16); Aspartate Amino Transferase 18 U/L (0-34); BUN/Creatinine Ratio 12 Ratio (12-20); Bilirubin,Total 0.5 mg/dL (0.3-1.2); Blood Urea Nitrogen 32 mg/dL (9-23); Calcium 8.6 mg/dL (8.3-10.6); Calcium (Corrected) 8.8 mg/dL (8.5-10.1); Carbon Dioxide 23.4 mMol/L (20.0-31.0); Chloride 101 mMol/L (98-107); Creatinine (Component) 2.7 mg/dL (0.6-1.3); Estimated Creatinine Clearance 28.2 mL/min (>60); Globulin 2.3 gm/dL (2.3-3.5); Glucose 118 mg/dL (74-106); Lipase 30 U/L (12-53); Magnesium 1.9 mg/dL (1.6-2.6); Osmolality,Calculated 270 (275-295); Potassium 4.6 mMol/L (3.4-5.1); Sodium 131 mMol/L (136-145); Total Protein 6.1 gm/dL (5.7-8.2); Troponin I 0.044 ng/mL (0.0-0.045); eGFR 25 See Note
[2025-01-05 21:09] VITALS: BP 104/70; BP 142/87; PULSE 62; PULSE 70
[2025-01-05] MEDS: SODIUM CHLORIDE 0.9% 1000 ML 1,000 ML 999 ML IV (21:10)
[2025-01-05 21:52] VITALS: BP 138/76; PULSE 64
[2025-01-05] MEDS: MIDODRINE 5 MG TABLET 10 MG PO (21:52)
[2025-01-05 23:01] VITALS: BP 134/67; PULSE 61; RESP 18; TEMP 36.6; O2SAT 98
[2025-01-06 00:39] VITALS: BP 167/84; PULSE 63; RESP 19; O2SAT 97
== END 2025-01-06 00:42 | disposition home or self-care (01) ==
PROVIDERS: Emergency Provider Emergency Medicine; PCP Family Medicine
DX: I95.1 Orthostatic hypotension (principal); R00.1 Bradycardia, unspecified; E78.00 Pure hypercholesterolemia, unspecified
CPT/HCPCS: 36415; 71045; 80053; 83690; 83735; 83880; 84484; 85025; 85610; 85730; 93005; 96360; 96361; 99284; J7030; A9270